=== PATIENT | female | born 1995 ===

== ENCOUNTER 2021-05-09 12:19 | Emergency (ER) | payer OTHER, SELFPAY ==
[2021-05-09 14:25] VITALS: RESP 16; TEMP 36.8; BMI 31.3
[2021-05-09 14:48] LABS: COVID-19 Test Positive (Negative)
[2021-05-09 14:59] LABS: Appearance Urine HAZY; Color Urine YELLOW; Glucose Urine UA NEG (NEG); Leukocyte Esterase Urine NEG (NEG); Nitrite Urine NEG (NEG); Specific Gravity - Urine 1.015 (1.005-1.025); Urine Blood NEG (NEG); Urine Ketones NEG (NEG); Urine Protein NEG (NEG-TRACE)
[2021-05-09 22:16] VITALS: BP 139/73; PULSE 116; RESP 18; TEMP 37.7; O2SAT 100
--- NOTE | 2021-05-09 22:44 | ED.FEVER ---
HPI - Fever General Chief Complaint: Fever Stated Complaint: Fever Time Seen by Provider: 05/09/21 22:06 Source: patient Mode of arrival: ambulatory Limitations: no limitations History of Present Illness HPI Narrative: 26-year-old female who presents emergency department for evaluation of fever, sore throat, headache, body aches, fatigue. The patient has been exposed to multiple family members who are COVID-19 positive. Patient states that her symptoms started today. The patient did receive the Moderna 2 shot vaccine for COVID-19 with her 2nd vaccination being on 02/03/2021. She denied chest pain, shortness of breath, dyspnea on exertion, diarrhea, loss of sense of taste or smell. Related Data Allergies Allergy/AdvReac Type Severity Reaction Status Date / Time No Known Allergies Allergy Verified 05/09/21 14:30 Review of Systems Review of Systems: Yes all other systems are reviewed and are negative [facility] Past Medical History [facility] Narrative: Past medical history: Anemia. Past surgical history: None. Social history: She denies tobacco, alcohol and drug use. Medical History (Updated 05/09/21 @ 22:51 by Juan Manuel Snyder MD) Anemia Social History Social History Advance Directives: No Advance Directives Information Provided: Yes Patient : No Physical Exam Vital Signs: Vital Signs: Last Vital Signs Temp 99.8 F 05/09/21 22:16 Pulse 116 H 05/09/21 22:16 Resp 18 05/09/21 22:16 BP 139/73 05/09/21 22:16 Pulse Ox 100 05/09/21 22:16 BMI result Body Mass Index 31.3 Const: General: cooperative and no acute distress Orientation/consciousness: oriented to person and oriented to place Limitations: no limitations HENMT: Head: Yes normal to inspection, Yes normocephalic and Yes atraumatic Ears: external ears normal General nose exam: Normal external nose present Face and sinus: Yes normal facial exam Mouth: Normal oral and palatal mucosa present Throat: Yes posterior oropharynx normal Eyes: General: appearance normal, both eyes and all related structures Pupils: Equal, round and reactive pupils present Neck: Neck: Yes normal visual inspection, Yes no lymphadenopathy, Yes trachea midline and Yes supple Chest: Chest palpation & inspection: normal inspection of the chest and normal palpation of entire chest wall Resp: Effort & Inspection: normal respiratory effort and able to speak in complete sentences Auscultation: clear to auscultation bilaterally Cardio: Rate: regular rate Rhythm: regular rhythm Heart sounds: S1 normal heart sound present, S2 normal heart sound present and no murmurs GI: Inspection: Yes normal to inspection Palpation (GI): Soft to palpation, nontender and no guarding Auscultation: normal bowel sounds : General: Yes no CVA tenderness Back/Spine/Pelvis: Back: no CVA tenderness Skin: General skin exam: no rashes or lesions noted Neuro: General: oriented to person and oriented to place Cranial nerves: Yes CN's II-XII intact bilaterally and Yes Equal, round and reactive pupils present Cognition (Neuro): normal cognition Motor exam (neuro): 5/5 motor strength present throughout Extrem: General: Yes normal to inspection Psych: Appearance: grossly normal Speech and movement: Normal speech and movement present Affect: normal affect Attitude: cooperative Thought process: Normal thought process present Thought content: Normal thought content present Course Course Course Narrative: 26-year-old female who presents emergency department for evaluation of fever, sore throat, cough, headache body aches and fatigue. She has had symptoms for 1 day. She has been exposed to multiple family members who are COVID positive. She had her 2 shot Moderna vaccine with the 2nd shot being given on 02/03/2021. Vital signs were normal with an O2 saturation of 100% on room air. Physical examination was unremarkable. Patient's urinalysis was negative. COVID-19 test was positive. I did discuss the treatment of COVID-19 infection with the patient. She was advised to take Tylenol and ibuprofen for her pain. She is advised to increase her fluid intake and rest. The patient does qualify for monoclonal antibody therapy based on her BMI. The patient will be referred to the [facility] clinic. She was given printed and verbal instructions and discharged home. MDM - Fever Lab Data Labs: Lab Results 05/09/21 05/09/21 Range/Units 14:35 14:46 Urine Color YELLOW Urine Appearance HAZY Urine pH 7.0 (5.0-8.0) Ur Specific [place] 1.015 (1.005-1.025) Urine Protein NEG (NEG-TRACE) MG/DL Urine Glucose (UA) NEG (NEG) MG/DL Urine Ketones NEG (NEG) MG/DL Urine Blood NEG (NEG) Urine Nitrite NEG (NEG) Ur Leukocyte Esterase NEG (NEG) COVID-19 (KERRY) Positive A (Negative) COVID-19 Clin Com See Note Discharge Plan Discharge Clinical Impression: COVID-19 virus infection Patient Disposition: Home, Self-Care Instructions: COVID-19 (Coronavirus Disease 2019) (ED) Additional Instructions: Your urine test was normal. Your COVID-19 test was positive. Your symptoms are consistent with a COVID-19 infection. Based on your lung exam and on your vital signs you do not have COVID pneumonia at this time. Take ibuprofen 200 mg pills, 3 pills every 6 hours as needed for pain or fever Take Tylenol (acetaminophen) 500 mg pills, 2 pills every 6 hours as needed for pain or fever You may benefit from COVID-19 monoclonal antibody treatment, therefore I am referring you to the [facility] in [place] The form was emailed to the clinic. They should call you to set up an appointment. Please call the number on the bottom of the form tomorrow to arrange for monoclonal antibody treatment. You need to stay home and isolate for 14 days. Please return to the emergency department if your symptoms get worse or if you develop any symptoms that are concerning to you.
== END 2021-05-09 23:04 | disposition home or self-care (01) ==
PROVIDERS: Emergency Provider Emergency Medicine Emergency Medical Services
DX: U07.1 COVID-19 (principal)
CPT/HCPCS: 36415; 81003; 87635; 99283; 99284

== ENCOUNTER → 2021-11-22 10:34 | Outpatient (BNVA) | payer OTHER, SELFPAY | PROVIDERS: Visit Provider Nurse Practitioner Family | DX: G43.009 Migraine without aura, not intractable, without status migrainosus (principal); F07.81 Postconcussional syndrome; R20.2 Paresthesia of skin; M54.2 Cervicalgia; R42 Dizziness and giddiness | CPT/HCPCS: 99202 ==

== ENCOUNTER → 2022-01-29 14:12 | Outpatient (BNVA) | payer OTHER, SELFPAY | PROVIDERS: Visit Provider Nurse Practitioner Family | DX: F07.81 Postconcussional syndrome (principal); G43.009 Migraine without aura, not intractable, without status migrainosus; R20.2 Paresthesia of skin; M54.2 Cervicalgia; R42 Dizziness and giddiness | CPT/HCPCS: 99212 ==

== ENCOUNTER 2023-06-13 22:47 | Emergency (ER) | payer MEDICAID, SELFPAY ==
--- NOTE | 2023-06-13 | ECG_ITS ---
Test Reason : SOB Blood Pressure : / mmHG Vent. Rate : 071 BPM Atrial Rate : 071 BPM P-R Int : 166 ms QRS Dur : 082 ms QT Int : 348 ms P-R-T Axes : 044 003 000 degrees QTc Int : 378 ms Normal sinus rhythm with sinus arrhythmia Minimal voltage criteria for LVH, may be normal variant ( R in aVL ) Nonspecific T wave abnormality Abnormal ECG No previous ECGs available Referred By: Generic ED Physician Electronically Signed By:BOOKER LEPE MD
--- NOTE | ~2023-06-13 | US_ITS ---
EXAMINATION: US VENOUS WITH DOPPLER UPPER EXTREMITY, RIGHT CLINICAL INFORMATION: Swelling, pain, history of DVT COMPARISON: None available. TECHNIQUE: Ultrasound of the upper extremity is performed using compression sonography and color and pulse Doppler flow with assessment of augmentation of flow. There is also imaging and Doppler assessment of the jugular and subclavian veins. Spectral analysis with color-flow imaging is performed. FINDINGS: Respiratory variation, normal compression, and augmented flow are noted throughout the upper extremity including the axillary, brachial, basilic, and cephalic veins. There is normal flow in the internal jugular and subclavian veins. There is no visible deep or superficial thrombophlebitis. If the patient's symptoms progress, a followup ultrasound in 5 -7 days might be of value to exclude proximal propagation from a nonvisualized distal arm vein. US/US venous duplex UE RT IMPRESSION: No DVT demonstrated in the right upper extremity.
--- NOTE | ~2023-06-13 | CT_ITS ---
EXAMINATION: CT SOFT TISSUE NECK WITH CONTRAST CLINICAL INFORMATION: Right neck swelling COMPARISON: None. TECHNIQUE: Following the administration of 65 mL of Omnipaque 350 intravenous contrast, helical imaging was performed in the axial plane with generation of coronal and sagittal reformatted images. This CT examination was performed using dose optimization techniques as appropriate, variously including the following: *Automated exposure control. *Adjustment of mA and/or kV according to patient size (this includes techniques or standardized protocols for targeted exams where dose is matched to indication/reason for exam; i.e. extremities or head). *Use of iterative reconstruction technique. DLP: 307 mGy-cm. FINDINGS: Nasopharynx/skull base: The fat planes of the skull base and soft tissues of the nasopharynx are unremarkable. The paranasal sinuses and mastoid air cells are well aerated. The temporomandibular joints are normal. Suprahyoid neck: The oropharynx, oral cavity, and bilateral salivary gland tissues are unremarkable. Infrahyoid neck: The hypopharynx and larynx are unremarkable. No aerodigestive tract mass. Thyroid: The thyroid gland is normal. Lymph nodes: There is no cervical chain lymphadenopathy. Lung apices: The partially visualized lung apices are clear. Vascular structures: No hemodynamically significant stenosis, dissection, or occlusion. Osseous structures: The osseous structures are intact without suspicious focal lesion. Other: The imaged portions of the brain parenchyma are unremarkable. CT/CT soft tissue neck w IV con IMPRESSION: No acute soft tissue abnormality in the neck is identified.
[2023-06-13 22:53] VITALS: BP 127/59; PULSE 75; RESP 20; TEMP 36.1; O2SAT 100; BMI 30.3
--- NOTE | 2023-06-13 23:24 | ED_ITS ---
HPI - General Adult General Chief complaint: Extremity Problem Stated complaint: hx arm blot clot/rt arm pain Time Seen by Provider: 06/13/23 23:23 Source: patient Mode of arrival: ambulatory Limitations: no limitations History of Present Illness HPI narrative: 28-year-old female history of right upper extremity DVT was on Lovenox for 3 months that was stopped because of her for the past 2 months presented today for evaluation of right arm pain and swelling that radiate to the right side of her right neck, patient also noticed palpable bumps on her right side her neck that has not tender. Patient declined any recent sickness, no sore throat, no fever, no chills. No SOB, no CP, no lower extremities DVT. Patient with known history of anemia that require blood and iron transfusion as per patient report but declined any vaginal or rectal bleeding, no SOB or CP. Related Data Home Medications Medication Instructions Recorded Confirmed cholecalciferol (vitamin D3) 25 25 mcg PO DAILY 11/22/21 01/29/22 mcg (1,000 unit) capsule naproxen sodium 550 mg tablet 550 mg PO BID 01/29/22 01/29/22 Previous Rx's Medication Instructions Recorded magnesium oxide 400 mg (241.3 mg 400 mg PO BEDTIME 30 days #30 tabs 11/22/21 magnesium) tablet riboflavin (vitamin B2) 400 mg 400 mg PO DAILY 30 days #30 tabs 11/22/21 tablet sumatriptan succinate 100 mg tablet 50 - 100 mg (0.5 - 1 x 100 mg) PO 11/22/21 Q2H PRN migraine headache 30 days #12 tabs topiramate 25 mg tablet 50 mg (2 x 25 mg) PO BEDTIME 30 12/21/21 days #60 tabs rizatriptan 10 mg tablet 5 - 10 mg (0.5 - 1 x 10 mg) PO Q2H 01/29/22 PRN migraine headache 21 days #12 tabs Allergies Allergy/AdvReac Type Severity Reaction Status Date / Time No Known Allergies Allergy Verified 01/29/22 14:15 Review of Systems 2 Review of Systems: All other systems are reviewed and are negative Constitutional: Reports as per HPI and Reports no additional constitutional complaints Eyes: Reports as per HPI and Reports no additional eye complaints Reports system reviewed and no additional complaints, except as documented Cardiovascular: Reports as per HPI and Reports no additional cardiovascular complaints Respiratory: Reports as per HPI and Reports no additional respiratory complaints Gastrointestinal: Reports as per HPI and Reports no additional gastrointestinal complaints Genitourinary: Reports no additional female genitourinary complaints Musculoskeletal: Reports no additional musculoskeletal complaints Skin/Breast: Reports system reviewed and no additional complaints, except as docu Psychiatric: Reports no additional psychiatric complaints Endocrine: Reports no additional endocrine complaints Hematologic/Lymphatic: Reports no additional hematologic/lymphatic complaints Allergic/Immunologic: Reports no additional allergic/immunologic complaints Reports system reviewed and no additional complaints, except as documented and Reports Abnormal speech present [facility] Past Medical History Medical History Anemia Surgical History H/O: Family History Family History Other No known health problems Social History Social History Advance Directives: No Advance Directives Information Provided: Yes Physical Exam ED Vital Signs: Vital Signs - 24 hr 06/13/23 22:53 06/13/23 23:43 06/14/23 02:15 Temperature 96.9 F 98.2 F 97.9 F Pulse Rate 75 74 59 Respiratory Rate 20 16 16 Blood Pressure 127/59 L 110/60 105/65 Pulse Oximetry 100 98 97 Oxygen Delivery Method Room Air Room Air Room Air BMI result Body Mass Index 30.3 Vital signs have been reviewed and appear to be correct. Blood pressure elevated. Heart rate normal. Respiratory rate normal. Temperature normal. Oxygen saturation normal. Appearance: Alert. Oriented X3. No acute distress. Head: Normal external exam. Normocephalic. Atraumatic. No Lackey signs noted. No raccoon eyes noted Eyes: PERRLA. EOMI. Conjunctiva and sclera normal. Eyelids normal. ENT: TM's Normal. Pharynx normal. Uvula midline. Moist mucous membranes. No trismus noted. No drooling noted. No muffled voice noted. Neck: Normal inspection. Neck supple. FROM. No adenopathy. Thyroid Normal. No meningeal signs. No neck mass noted. CVS: Normal heart rate and rhythm. Heart sound normal. No murmurs noted. Pulses normal throughout. Respiratory: No respiratory distress. Painless inspiration. Breath sounds normal. No wheezes/rales/rhonchi noted. Chest nontender. No accessory muscle usage noted or decreased air movement noted. Abdomen: Soft and nontender. Bowel sounds normal in all 4 quadrants. No distention noted. No organomegaly noted. No visible injury noted. Back: No CVA tenderness. Full range of motion noted. Skin: Skin warm and dry. Normal skin color. Normal skin turgor. No rashes/lesions/lacerations noted. Extremities: No lower extremity edema. Extremities exhibit normal range of motion. Extremities nontender. Neuro: Oriented X 3. Cranial nerve exam: II-XII are grossly intact No motor deficit. No sensory deficit. Reflexes normal. Course Reevaluation(s) Reevaluation #1: History of DVT in the right upper extremity swelling and pain with history of blood clot not on AC presented with concern of right arm pain and swelling radiates to the right side with bumps on right side of neck. Patient had an ultrasound of her right upper extremity showed no DVT, CT of the soft tissue neck revealing no mass. Patient was reassured and will be discharged home. Noticed to be anemic no old lab value to compare patient declined any vaginal bleeding or rectal bleeding, no SOB or chest pain either. Time: 02:37 Medications Administered Discontinued Medications Generic Name Dose Route Start Last Admin Trade Name Freq PRN Reason Stop Dose Admin Sodium Chloride 1,000 mls @ 999 mls/hr 06/13/23 23:29 06/14/23 01:40 Ns IV 06/14/23 00:29 Infused .Q1H1M ONE Infusion Iohexol 60 ml 06/14/23 00:20 06/14/23 00:21 Iohexol 350 Mg/Ml 100 Ml Infus..Btl IV 06/14/23 00:21 60 ml ONCE ONE Administration Medical Decision Making Differential Diagnosis Differential Diagnoses: The differential diagnosis associated with the presentation includes (Right upper extremity DVT,) Admission/Observation Consideration of admission/observation: Escalation of care including admission/observation considered Lab Data MDM Lab Attestation statement: I reviewed the patient's lab results. 06/14/23 00:33 06/13/23 23:17 Labs: Lab Results 06/13/23 06/14/23 Range/Units 23:17 00:33 WBC 5.6 (4.8-10.8) X10*3/uL RBC 4.10 L (4.20-5.50) X10*6/uL Hgb 9.7 L (12.0-16.0) g/dl Hct 31.7 L (37.0-47.0) % MCV 77.3 L (80.0-98.0) fL MCH 23.7 L (27.0-33.0) pg MCHC 30.6 L (31.0-35.0) g/dl RDW 15.5 (11.0-16.0) % Plt Count 256 (160-400) X10*3/uL MPV 10.1 (9.4-12.3) fL Immature Gran % (Auto) 0.2 (0.0-0.4) % Neut % (Auto) 54.4 (45-73) % Lymph % (Auto) 36.0 (20-40) % Motley % (Auto) 6.3 (2-11) % Eos % (Auto) 2.7 (0-4) % Baso % (Auto) 0.4 (0-2) % Lymph # (Auto) 2.0 (1.2-4.9) X10*3/uL Motley # (Auto) 0.4 (0.1-1.2) X10*3/uL Eos # (Auto) 0.2 (0.0-0.4) X10*3/uL Baso # (Auto) 0.0 (0.0-0.2) X10*3/uL Abs Immat Gran (auto) 0.01 (0.00-0.03) X10*3/uL Absolute Neuts (auto) 3.1 (2.0-8.3) x10*3/uL Absolute Nucleated RBC 0.000 (0.0-0.012) X10*3/uL Nucleated RBC % (auto) 0.0 (0.0-0.2) /100WBC Sodium 141 (135-145) mmol/L Potassium 3.6 (3.3-5.1) mmol/L Chloride 110 H (96-108) mmol/L Carbon Dioxide 22 (22-29) mmol/L Anion Gap 13 (12-20) BUN 14 (9-16) mg/dL Creatinine 0.63 (0.5-1.4) mg/dL Estim Creat Clear Calc 106.7 Estimated GFR > 60 Random Glucose 90 (60-115) mg/dL Calcium 8.5 (8.4-10.2) mg/dL Independent Interpretation I performed an independent interpretation of an: Ultrasound (Right upper extremity:No DVT demonstrated in the right upper extremity. ) Radiology Impression Discussion of test interpretation with radiology: I have reviewed the radiologist's reading. Discharge Plan Discharge Clinical Impression: Arm pain, right Patient Disposition: Home, Self-Care Instructions: Arm Pain (ED) Prescriptions: No Action topiramate 25 mg tablet 50 mg PO BEDTIME 30 Days Qty: 60 1RF Rx Instructions: 1 tab for two weeks and if tolerate, increase to 2 tab q HS. cholecalciferol (vitamin D3) 25 mcg (1,000 unit) capsule 25 mcg PO DAILY sumatriptan succinate 100 mg tablet 50 - 100 mg PO Q2H PRN (Reason: migraine headache) 30 Days Qty: 12 6RF Rx Instructions: max 2 tabs per day or 4 tabs/week riboflavin (vitamin B2) 400 mg tablet 400 mg PO DAILY 30 Days Qty: 30 6RF magnesium oxide 400 mg (241.3 mg magnesium) tablet 400 mg PO BEDTIME 30 Days Qty: 30 6RF Rx Instructions: may hold for loose stools naproxen sodium 550 mg tablet 550 mg PO BID rizatriptan 10 mg tablet 5 - 10 mg PO Q2H PRN (Reason: migraine headache) 21 Days Qty: 12 3RF Rx Instructions: max 2 tabs per day or 4 tabs per week
[2023-06-13 23:37] LABS: Anion Gap 13 (12-20); Blood Urea Nitrogen 14 mg/dL (9-16); Calcium 8.5 mg/dL (8.4-10.2); Carbon Dioxide 22 mmol/L (22-29); Chloride 110 mmol/L (96-108); Creatinine Clr Calc Pharmacy 106.7; Estimated Glomerular Filt Rate > 60; Glucose Random 90 mg/dL (60-115); Potassium 3.6 mmol/L (3.3-5.1); Sodium 141 mmol/L (135-145)
--- OUTSIDE RECORDS SUMMARY | 2023-06-13 23:41 | XMS_ITS | Continuity of Care Document ---
Author Name Unknown Organization [facility] Address [address] [place] [id number]- Care Team Providers Care Product Safety Expert Name Role Phone Benson SCHNEIDER, Zenaida Covarrubias Primary Care Physic alma Encounter [facility] Date(s): 12/31/22 - 01/30/23 [facility] [address] [address]- Allergies, Adverse Reactions, Alerts No Known Allergies Immunizations Given and Recorded Vaccine Date Status Refusal Reason tetanus/diphtheria/pertussis, acel(Tdap) 11/20/22 Given tetanus/diphtheria/pertussis, acel(Tdap) 02/22/17 Given tetanus/diphtheria/pertussis, acel(Tdap) 1 02/02/11 Given SARS-CoV-2 (COVID-19) mRNA-1273 vaccine 10/11/21 R ecorded SARS-CoV-2 (COVID-19) mRNA-1273 vaccine 02/08/21 R ecorded SARS-CoV-2 (COVID-19) mRNA-1273 vaccine 12/28/20 R ecorded influenza virus vaccine, inactivated 02/22/17 Give n influenza virus vaccine, inactivated 2 03/08/11 Gi alvaro influenza virus vaccine, inactivated 3 06/30/10 Gi alvaro Fluarix (oldterm) 4 02/11/12 Given Human Papillomavirus Vaccine 5 02/11/12 Given Human Papillomavirus Vaccine 6 07/06/11 Given Human Papillomavirus Vaccine 7 03/08/11 Given Menactra (oldterm) 8 03/08/11 Given 1Admin Note: VIS given 2Admin Note: vis 12/2010 3Admin Note: vis 12/20/09 4Admin Note: vis given 11/12/11 5Admin Note: VIS 07/04/2011 6Admin Note: vis 08/09/09 7Admin Note: vis 08/09/09 8Admin Note: vis 02/23/11 Medications sertraline 50 mg oral tablet 1 tablet = 50 mg, By Mouth, Daily, # 90 tablet, 0 Refills, Maintenance, 12/20/22 15:49:00 EDT, Tablet, Community, A [facility] Rx #[id number], Partial fill upon patient request if the prescription is for aschedule II opioid drug., 148, cm, 12/20/22 15:26:0... Start Date: 12/20/22 Status: Ordered Unisom 25 mg oral tablet 1 tablet = 25 mg, By Mouth, Daily at bedtime, PRN for sleep, # 32 tablet, 0 Refills, Acute 02/28/2315:57:00 EDT, 01/29/23 15:57:00 EDT, Tablet, Community, A [facility] Rx #[id number], Partial fill upon patient request if the prescription is for a schedule... Start Date: 01/29/23 Stop Date: 02/28/23 Status: Ordered valACYclovir 500 mg oral tablet 500 mg, 1, tablet, By Mouth, 2 times a day, for 5 week(s), start taking at 36 weeks gestation and continue through time of delivery drink plenty of fluids for your , 36w start date is on 01/21/23, # 70 tablet, Refills 0, Tot. Refills 0, Ac... Start Date: 01/21/23 Stop Date: 02/25/23 Status: Ordered Problem List Condition Confirmation Course Effective Dates Status H ealth Status Informant Anemia during Confirmed Active Anxiety Confirmed Active GBS bacteriuria Confirmed Active Depression Confirmed Active History of Confirmed Active HSV infection Confirmed Active Obese class I Confirmed Active Confirmed Active Request for sterilization Confirmed Active Superficial thrombophlebitis in Confirmed Active Declines (vaginal after ) trial Confirmed Active Social History Social History Type Response Smoking Status Never (less than 100 in lifetime) entered on: 07/13/22 Sex Female Patient Care team information Care Team Personnel Name: Benson SCHNEIDER, Zenaida Covarrubias Position: [facility] RAT POISONER MD Member Role: PCP Address: Address: [address] [phone]- Care Team Related Persons Name: CARMEN PARDO Address: home [address] [place] [id number] Name: MAK DARDEN Address: [address] [address]
--- OUTSIDE RECORDS SUMMARY | 2023-06-13 23:41 | XMS_ITS | Continuity of Care Document ---
Author Name Unknown Organization [facility] Address [address] [place] [id number]- Care Team Providers Care Looper Fixer Name Role Phone Benson SCHNEIDER, Zenaida Covarrubias Primary Care Physic alma Encounter [facility] Date(s): 11/15/22 - 12/15/[address] [address]- Allergies, Adverse Reactions, Alerts No Known Allergies [...] vis 08/09/09 8Admin Note: vis 02/23/11 Medications Venofer 20 mg/mL intravenous solution = 100 mg, IV Infusion, Every week, # 10 mL, 1 Refills, Maintenance, 11/21/22 16:00:00 EDT[facility] Partial fill upon patient request if the prescription is for a schedule II opioid drug., 148, cm, 11/20/22 14:54:00 EDT, Height, 72.6,... Start Date: 11/21/22 Status: Ordered Problem List Condition Confirmation Course Effective Dates Status H ealth Status Informant Anemia during Confirmed Active Anxiety Confirmed Active GBS bacteriuria Confirmed Active Constipation during Confirmed Active Depression Confirmed Active History of Confirmed Active HSV infection Confirmed Active Obese class I Confirmed Active Request for sterilization Confirmed Active Declines (vaginal after ) trial Confirmed Active Social History Social History Type Response Smoking Status Never (less than 100 in lifetime) entered on: 07/13/22 Sex Female Patient Care team information Care Team Personnel Name: Benson SCHNEIDER, Zenaida Covarrubias Position: [facility] SERVER ON CALL MD Member Role: PCP Address: [facility] [place] [phone]- Care Team Related Persons Name: CARMEN PARDO Address: home [address] [place] [id number] Name: MAK DARDEN Address: home [address] [place] [address]
--- OUTSIDE RECORDS SUMMARY | 2023-06-13 23:41 | XMS_ITS | Continuity of Care Document ---
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 Name Role Phone Not on Staff, PCP Primary Care Physician Unavail able Encounter [facility] Date(s): 09/14/19 - 09/21/19 [facility] [address] [place] [address]- [facility] Encounter Diagnosis Right wrist injury(Discharge Diagnosis) - 09/14/19 Attending Physician: Richy SCHNEIDER, Emeterio Bashir Allergies, Adverse Reactions, Alerts Substance Reaction Severity Status NKA Active Immunizations Given and Recorded Vaccine Date Status Refusal Reason influenza virus vaccine, inactivated 02/22/17 Give n influenza virus vaccine, inactivated 1 03/08/11 Gi alvaro influenza virus vaccine, inactivated 2 06/30/10 Gi alvaro tetanus/diphtheria/pertussis, acel(Tdap) 02/22/17 Given tetanus/diphtheria/pertussis, acel(Tdap) 3 02/02/11 Given Fluarix (oldterm) 4 02/11/12 Given Human Papillomavirus Vaccine 5 02/11/12 Given Human Papillomavirus Vaccine 6 07/06/11 Given Human Papillomavirus Vaccine 7 03/08/11 Given Menactra (oldterm) 8 03/08/11 Given 1Admin Note: vis 12/2010 2Admin Note: vis 12/20/09 3Admin Note: VIS given 4Admin Note: vis given 11/12/11 5Admin Note: VIS 07/04/2011 6Admin Note: vis 08/09/09 7Admin Note: vis 08/09/09 8Admin Note: vis 02/23/11 Medications acetaminophen 325 mg oral tablet 650 mg, 2, tablet, By Mouth, Every 4 hours, PRN, # 120 tablet, Refills 0, Tot. Refills 0, Maintenance, for pain, 12/02/18 5:02:21 EDT, Print Requisition Start Date: 12/02/18 Status: Ordered Apri 0.15 mg-0.03 mg oral tablet 1 tablet, By Mouth, Daily, # 28 tablet, 11 Refills, Maintenance, 10/15/17 13:41:21 EDT, Tablet, 1 tablet By Mouth Daily Start Date: 10/15/17 Status: Ordered Colace sodium 100 mg oral capsule 100 mg, 1, capsule, By Mouth, 2 times a day, PRN, # 60 capsule, Refills 1, Tot. Refills 1, Maintenance, for constipation, 02/22/17 12:44:13, Route to Pharmacy Electronically, [id number], [facility] #[id number] Start Date: 02/22/17 Status: Ordered docusate sodium 100 mg oral tablet 1 tablet = 100 mg, By Mouth, 2 times a day, PRN for constipation, # 28 tablet, 0 Refills, Maintenance, 04/20/17 11:19:30, Tablet Start Date: 04/20/17 Stop Date: 05/04/17 Status: Ordered ferrous gluconate 324 mg oral tablet 1 tablet = 324 mg, By Mouth, 2 times a day, # 180 tablet, 3 Refills, Maintenance, 10/19/16 21:15:55, Tablet Start Date: 10/19/16 Status: Ordered ferrous sulfate 325 mg oral tablet 1 tablet = 325 mg, By Mouth, 3 times a day, # 90 tablet, 0 Refills, Maintenance, 04/20/17 11:19:28,Tablet Start Date: 04/20/17 Status: Ordered ibuprofen 400 mg oral tablet 400 mg, 1, tablet, By Mouth, Every 6 hours, PRN, # 30 tablet, Refills 0, Tot. Refills 0, Maintenance, for pain, 12/02/18 5:01:04 EDT, Print Requisition Start Date: 12/02/18 Status: Ordered ibuprofen 600 mg oral tablet 600 mg, 1, tablet, By Mouth, Every 6 hours, # 40 tablet, Refills 1, Tot. Refills 1, Maintenance, 04/20/17 11:19:27, Print Requisition Start Date: 04/20/17 Stop Date: 05/10/17 Status: Ordered MetroGel-Vaginal 0.75% vaginal gel with applicator 1 application, Vaginally, Daily at bedtime, # 70 Gm, 0 Refills, Maintenance, 12/04/17 17:46:02 EDT,Gel, 1 application Vaginally Daily at bedtime,x5 days Start Date: 12/04/17 Stop Date: 12/09/17 Status: Ordered Multivitamin, By Mouth, 0 Refills, Maintenance, 12/05/16 17:03:33 Start Date: 12/05/16 Status: Ordered NuvaRing 0.015 mg-0.120 mg vaginal ring See Instructions, insert 1 ring Vaginally x3 weeks, then remove and insert new ring; repeat, # 3 each, 4 Refills, Maintenance, 12/04/17 17:52:54 EDT, insert 1 ring Vaginally x3 weeks, then remove andinsert new ring; repeat Start Date: 12/04/17 Status: Ordered orphenadrine 100 mg oral tablet, extended release 100 mg, 1, tablet, By Mouth, 2 times a day, # 14 tablet, Refills 0, Tot. Refills 0, Maintenance, 08/31/18 20:17:56 EDT, Print Requisition Start Date: 08/31/18 Stop Date: 09/07/18 Status: Ordered oxyCODONE 5 mg oral tablet 5 mg, 1, tablet, By Mouth, Every 6 hours, PRN, # 24 tablet, Refills 0, Tot. Refills 0, Maintenance,for pain, 04/20/17 11:19:29, Print Requisition Start Date: 04/20/17 Stop Date: 04/27/17 Status: Ordered oxyCODONE 5 mg oral tablet 5 mg, 1, tablet, By Mouth, Every 24 hours, PRN, # 5 tablet, Refills 0, Tot. Refills 0, Maintenance,for pain, 03/01/17 18:21:07, Print Requisition Start Date: 03/01/17 Status: Ordered ParaGard intrauteral device See Instructions, supervisor kennel Paragard and bring to your post- appointment for insertion, # 1 each, 0 Refills, Maintenance, 04/22/17 14:04:19, supervisor kennel Paragard and bring to your post- appointment for insertion Start Date: 04/22/17 Status: Ordered sulindac 200 mg oral tablet 1 tablet = 200 mg, By Mouth, 2 times a day, PRN Pain , Moderate, with food or milk, # 20 tablet, 0 Refills, Maintenance, 07/24/19 19:06:00 EDT, Tablet, [id number], 148, cm, 07/24/19 18:18:00 EDT, Height, 67.7, kg, 07/24/19 18:18:00 EDT, Dry We... Start Date: 07/24/19 Stop Date: 08/07/19 Status: Ordered Tylenol 325 mg oral tablet 325 mg, 1, tablet, By Mouth, Every 4 hours, PRN, # 50 tablet, Refills 0, Tot. Refills 0, Maintenance, Pain , Mild, 04/20/17 11:19:20, Print Requisition Start Date: 04/20/17 Stop Date: 04/30/17 Status: Ordered Problem List Condition Effective Dates Status Health Status Inform ant Anemia(Confirmed) Active Diagnosis Diagnosis Type Effective Dates Health Status Cl inical Service Informant Right wrist injury Discharge Diagnosis 09/14/19 Vital Signs Most recent to oldest [Reference Range]: 1 Height 148 cm (09/14/19 6:58 PM) Weight 69.5 kg (09/14/19 6:58 PM) Oxygen Saturation [94-100 %] 99 % (09/14/19 6:58 PM) Pulse Rate [55-90 bpm] 80 bpm (09/14/19 6:58 PM) Body Mass Index [18.5-24.99] 31.73 *>HHI* (09/14/19 6:58 PM) Blood Pressure [90-138/55-84 mm Hg] 120/ 41mm Hg (09/14/19 6:58 PM) Respiratory Rate [16-30 br/min] 18 br/mi n (09/14/19 6:58 PM) Temperature [96.8-100.4 DegF] 97.8 DegF (09/14/19 6:58 PM) Mode of Delivery (Oxygen) Room air (09/14/19 6:58 PM) Blood pressure sites Arm, right (09/14/19 6:58 PM) Temperature Route Oral (09/14/19 6:58 PM) Dry Weight 69.5 kg (09/14/19 6:58 PM) Weight Obtained Via Standing scale (09/14/19 6:58 PM) Dry Weight Obtained Via Standing scale (09/14/19 6:58 PM)
--- OUTSIDE RECORDS SUMMARY | 2023-06-13 23:42 | XMS_ITS | Continuity of Care Document ---
Author Name Unknown Organization [facility] ter Address [address] [place] [id number]- Care Team Providers Care Cart Driver Name Role Phone Benson SCHNEIDER, Zenaida Bashir Primary Care Physician Encounter [facility] [place] Date(s): 07/18/22 - 07/18/[address] [address] Discharge Disposition: A-D/C Home Attending Physician: Warren Betancourt MD Admitting Physician: Warren Betancourt MD Referring Physician: Warren Betancourt MD Allergies, Adverse Reactions, Alerts No Known Allergies [...] vis 08/09/09 8Admin Note: vis 02/23/11 Medications ondansetron 4 mg oral tablet, disintegrating 1 tablet = 4 mg, By Mouth, Every 8 hours, PRN as needed for nausea/vomiting, # 12 tablet, 0 Refills, Maintenance, 07/13/22 16:21:00 EST, DIS Tablet, [facility], [facility] Rx #[id number], Partial fill upon patient request if the prescription is for a sched... Start Date: 07/13/22 Status: Ordered Multivitamins with Folic Acid 1 mg oral tablet 1 tablet, By Mouth, Daily, # 90 tablet, 3 Refills, Maintenance, 06/15/22 16:06:00 EST, Tablet, [id number], Partial fill upon patient request if the prescription is for a schedule II opioid drug., 1 tablet By Mouth Daily, 148, cm, 01/17/22 23:1... Start Date: 06/15/22 Status: Ordered pyridoxine 25 mg oral tablet 1 tablet = 25 mg, By Mouth, 3 times a day, PRN Nausea & Vomiting, # 100 tablet, 8 Refills, Acute 07/30/22 14:36:00 EDT, 07/02/22 14:35:00 EST, [id number], Partial fill upon patient request if the prescription is for a schedule II opioid drug.,... Start Date: 07/02/22 Stop Date: 07/30/22 Status: Ordered Topamax 25 mg oral tablet 1 tablet = 25 mg, By Mouth, 2 times a day, 0 Refills, Maintenance, 01/17/22 20:57:00 EDT, Partial fill upon patient request if the prescription is for a schedule II opioid drug. Start Date: 01/17/22 Status: Ordered Unisom 25 mg oral tablet 1 tablet = 25 mg, By Mouth, Daily at bedtime, PRN for sleep, # 32 tablet, 0 Refills, Acute 07/30/2313:37:00 EDT, 07/02/22 14:35:00 EST, Tablet, [id number], Partial fill upon patient request if the prescription is for a schedule II opioid drug... Start Date: 07/02/22 Stop Date: 07/30/22 Status: Ordered Problem List Condition Confirmation Course Effective Dates Status H ealth Status Informant Anemia Confirmed Active Anxiety Confirmed Active Depression Confirmed Active Dysfunctional voiding of urine Confirmed Active HSV infection Confirmed Active Mixed incontinence Confirmed Active Obese class I Confirmed Active Pelvic pain in female Confirmed Active Levator spasm Confirmed Active Vital Signs Most recent to oldest [Reference Range]: 1 Weight 69.0 kg (07/18/22 10:34 AM) Oxygen Saturation [94-100 %] 100 % (07/18/22 10:34 AM) Pulse Rate [55-90 bpm] 71 bpm (07/18/22 10:34 AM) Blood Pressure [90-138/55-84 mm Hg] 106/ 51mm Hg (07/18/22 10:34 AM) Respiratory Rate [16-30 br/min] 18 br/mi n (07/18/22 10:34 AM) Temperature [96.8-100.4 DegF] 98.6 DegF (07/18/22 10:34 AM) Mode of Delivery (Oxygen) Room air (07/18/22 10:34 AM) Blood pressure sites Arm, right (07/18/22 10:34 AM) Temperature Route Oral (07/18/22 10:34 AM) Weight Obtained Via Standing scale (07/18/22 10:34 AM) Social History Social History Type Response Smoking Status Never (less than 100 in lifetime) entered on: 07/13/22 Sex Female History and physical note * Yareli Soriano DO: PERFORM Event Display: History and Physical Hospital Authored Date: Patient: ??ASHERCAYDEN ? Age:??27 Years?Sex:??Female?:??1995?? LMP/EGA/DUNIA Gestational Age (EGA) and DUNIA? * Note: EGA calculated as of 07/18/2022 ?? DUNIA:??02/09/2023?EGA*:??10 weeks 4 days ? History?(2,0,1,2)?Method:??Last Menstrual Period??(05/05/2022) History of Present Illness Pt is a 27 yo @ 10w4 by LMP??presenting to [facility] with spotting. Spotting started last night,bright red with associated pelvic cramping. Denies recent intercourse. Denies abnormal vaginal discharge, itching, burning or pain. She had an ultrasound at an outside facility 2 weeks ago and statesshe had an IUP. ?? Review of Systems Constitutional:??Denies fever or chills, weakness, fatigue HEENT:??Denies headache, dizziness Cardiovascular: Denies??chest pain or palpitations. Respiratory:??Denies shortness of breath, cough Gastrointestinal: Denies abdominal pain, N/V, C/D OUTPATIENT CASE MANAGER: Per HPI Ext: Denies LE swelling or calf pain Physical Exam Vitals & Measurements T:??98.6?F ?? KY:??71?? RR:??18?? BP:??106/51?? SpO2:??100%?? WT:??69.0??kg?? General: pleasant, alert, cooperative, NAD HEENT: Normocephalic/atraumatic Respiratory: Unlabored breathing Abdominal: Soft, non-tender. no masses. No rebound or guarding. [employer]ancials: Speculum: Normal appearing perineum, vulva, urethral meatus, vaginal and cervical mucosa, no lesions appreciated. 3 scopettes of dark red blood cleared from the vaginal vault. Cervix visually closed.No active bright red bleeding. Bimanual: Cervix closed. No CMT.??No adnexal fullness. or tenderness. Extremities: Symmetrical muscle bulk, no visible erythema or edema.?? Psych: Mood and affect stable, appearance appropriate, good eye contact, talkative ?? Bedside ultrasound: Live intrauterine , FHR 165 OB Assessment Baby A Baseline:165 Assessment/Plan Assessment:??Pt is a 27 yo @ 10w4 by LMP presenting to [facility] with spotting. Bedside ultrasound confirmed liver intrauterine . Cervix closed and no active bleeding. ?? Reviewed that bleeding in is never normal but not uncommon. Discussed with patient many causes for vaginal bleeding in early that may or may not be related to . We discussed that the differential diagnosis of vaginal bleeding in the 1st trimester includes miscarriage, implantation bleeding, bleeding from cervical friability. ??Exam today reassuring for IUP however there is a risk that today's bleeding may continue and leadto a miscarriage. Discussed with patient there are no tests or interventions that could forsee or prevent a miscarriage. Also discussed that patient can resume normal activity, no need for bed rest. ?? Given that the patient is hemodynamically stable and not having any active bleeding, outpatient expectant management is most appropriate. Patient discharged with return precautions of heavy bleeding,infection and abdominal pain. ?? Pt seen and discussed with attending, Dr. Mcgraw ?? Threatened (O20.0):??- Rh+; RhoGam not indicated - Discussed return precautions - Tylenol, warm baths/showers PRN for pain/cramping - Pending apt for [facility] at [facility] - Discharge home with bleeding and return precautions ?? OB History History?(2,0,1,2)? # 1 ?Baby 1 ?Outcome Date:??01/29/2011?Outcome or Result:??, low transverse ?Gest Age:??41 weeks 2 days ? Outcome:??Live ? Sex:??Male?Wt:?2410 g ? Complications:??Meconium; severe variable and late decelerations ?Anesthesia Type:??Epidural ? Labor:??No ?Javier Labor:??12 hr ?Name of Father/Guardian of [place]:?Hospital:??[facility] ?? # 2 ?Baby 1 ?Outcome Date:??2014 ?Outcome or Result:??Therapeutic , surgical ?Gest Age:??-- ? Outcome:? Sex:??-- ?? # 3 ?Baby 1 ?Outcome Date:??04/17/2017?Outcome or Result:?Gest Age:??39 weeks 3 days ? Outcome:??Live ? Sex:??Male?Wt:?3724 g Labs Labs Labs & Tests Chlamydia Trachomatis Amplified Probe: NEGATIVE (07/04/22) Urine Culture: Urine Culture (07/04/22) Problem List Active Active Problem List : (Freetext) Anemia: (Medical) Anxiety: (Medical) Depression: (Medical) Dysfunctional voiding of urine: (Medical) HSV infection: (Medical) Levator spasm: (Medical) Mixed incontinence: (Medical) Obese class I: (Medical) Pelvic pain in female: (Medical) : (Obstetric) (05/05/22) Procedure/Surgical History primary section: 01/29/11 Home Medications Doxylamine: 25 mg = 1 tablet, By Mouth, Daily at bedtime, PRN (for sleep) Multivitamin, : 1 tablet, By Mouth, Daily Ondansetron: 4 mg = 1 tablet, By Mouth, Every 8 hours, PRN (as needed for nausea/vomiting) Pyridoxine: 25 mg = 1 tablet, By Mouth, 3 times a day, PRN (Nausea & Vomiting) Topiramate: 25 mg = 1 tablet, By Mouth, 2 times a day Allergies NKA Social History Alcohol Use: Never., 07/13/2022 Use: Never., 04/11/2020 Electronic Cigarette/Vaping Electronic Cigarette Use: Never., 07/13/2022 Electronic Cigarette Use: Never., 04/11/2020 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 Lives with: Children. DCF involvement: None., 07/13/2022 Living situation: Home/Independent. Lives with: Children., 04/11/2020 Nutrition/Health Diet: Regular., 07/13/2022 Diet: Regular., 04/11/2020 Sexual Sexually involved in last 6 months: Yes. Gender identity: Identifies as female. Self described orientation: Straight or heterosexual. Preferred pronoun: She/her., 07/13/2022 Sexually involved in last 6 months: Yes., 04/11/2020 Substance Abuse Use: Never., 07/13/2022 Use: Never., 04/11/2020 Tobacco Use: Never (less than 100 in lifetime)., 07/13/2022 Use: Never (less than 100 in lifetime)., 04/11/2020 Family History Mat. Grandfather: Cancer of colon Pat. Grandmother: Diabetes mellitus Plan No Data Found * Mariluz SCHNEIDER, Cecilia Kelly: PERFORM Event Display: History and Physical Hospital Authored Date: ?Attending Attestation:??I have seen and evaluated this patient. ??I have discussed the caseand its management with and agree with the findings and plan as documented in the note below. Note * Felisa De Paz V: PERFORM Event Display: Discharge/Transfer Note Hospital Authored Date: Nursing Discharge Note Entered On: 07/18/2022 12:21 EST Performed On: 07/18/2022 12:20 EST by Feilsa De Paz V Nursing Discharge Note 2 Discharge Time : 07/18/2022 12:20 EST Discharge Level of Care at Discharge : Home/Assisted/Foster Care Patient Left Unit Via : Ambulatory Patient Accompanied Off Unit with : Other: self DC Instructions Provided & Signed by Pt : Yes Patient Understands D/C Instructions : Yes Patient Instructions Discharge Signed : Yes Did Pt have Specialty Bed or Wound Vac : No Felisa De Paz V - 07/18/2022 12:20 EST * Felisa De Paz V: PERFORM Event Display: Patient Education/Instruction Authored Date: Inpatient Adult Discharge Instructions [address] [address] Name: CAYDEN STERLING : 1995 Visit: 07/18/2022 10:02:00 Current Date: 07/18/2022 11:51 Account: [id number] Inpatient Adult Discharge Instructions We would like to thank you for allowing us to assist you with your healthcare needs. The following includes patient education materials and information regarding your injury/illness. Our entire staffstrives to provide an excellent experience for our patients and their families. PLEASE ENSURE YOU FOLLOW-UP PER THE INSTRUCTIONS BELOW! ?? YOUR OPINION IS IMPORTANT TO US! Please complete the survey you may receive by mail or email. Your feedback will be used to make improvements to the healthcare experiences of our patients and their families. Surveys are administered by [employer]. ?? If further treatment with your primary care physician or another doctor is recommended, it is important for you to keep the appointment. Call your primary care physician or return to the Emergency Department immediately if your condition worsens, fails to improve, or new symptoms develop. If you need to find a doctor, you can call [facility] for a referral at [phone] or toll free at [phone]) or log in to [email or web address].. ?? You can view and manage your care through the patient portal or by using a health care jeff of your choosing. [employer] is a website that allows you to securely view your medical information including your hospital discharge summary, office visit summaries, medications and follow-up visits. You can also request appointments, renew medications, and request access to your medical information using a health care jeff of your choosing, or just ask a question. You can enroll at [email or web address] or register during your next office visit. You have been discharged from [facility], Patient Care Unit: [facility]. If you have any questions regarding these instructions after you leave, please call us and we will be happy to assist you. [facility] Your Care Team Attending Physician Warren Betancourt MD Tests Performed Below is a partial list of the tests performed during your hospitalization. You may have had other tests and procedures not included in this list. Please discuss all test results with your provider. Complete Urinalysis?-- Results Pending -- ? You will be contacted within 72 hours with your results. Primary Care Provider Benson SCHNEIDER, Zenaida Bashir Advance Directive Health Care Proxy on File No Discharge Vitals Temperature: 98.6 DegF Weight: 69 kg Pulse Rate: 71 bpm ?? Respiratory Rate: 18 br/min ?? Systolic Blood Pressure: 106 mm Hg ?? Diastolic Blood Pressure:??51 mm Hg??Low ?? Oxygen Saturation: 100 % ?? Studies Pending All tests and labs ordered during this hospital stay have been completed unless listed below. Please discuss all pending results with your provider listed above in these instructions. ?? Complete Urinalysis What to do next Instructions From Your Doctor Discharge Orders You Need to Schedule the Following Appointments Follow Up with??[facility] When?? Why: Please follow up t your next scheduled appointment, call with concerns Where: [address] [place] [id number]- Discharge Medications CAYDEN STERLING :1995 Visit Date:07/18/2022 Medications: Please continue your medications until treatment is completed or stopped by your provider. Medications not listed below should be discontinued. Discuss any questions related to medications with your provider. What How Much When Instructions Next Dose Unchanged Doxylamine (Unisom 25 mg oral tablet) 1 tab(s) Oral Daily at Bedtime as needed for for sleep Unchanged Multivitamin, ( Multivitamins with Folic Acid 1 mg oral tablet) 1 tab(s) Oral Daily Unchanged Ondansetron (ondansetron 4 mg oral tablet, disintegrating) 1 tab(s) Oral Every 8 hours as needed for as needed for nausea/vomiting Unchanged Pyridoxine (pyridoxine 25 mg oral tablet) 1 tab(s) Oral 3 times a day as needed for Nausea & Vomiting Unchanged Topiramate (Topamax 25 mg oral tablet) 1 tab(s) Oral Twice a day Test Results Below is a partial list of the most recent Laboratory test results done prior to this discharge. You may have had other tests and procedures not included in this list. Please discuss all test resultswith your provider. Allergies (NKA means No Known Allergies) NKA Problems Active Problems??(11) Anemia?? Anxiety?? Depression?? Dysfunctional voiding of urine?? HSV infection?? Levator spasm?? Mixed incontinence?? Obese class I?? Pelvic pain in female? primary section 01/2011?? Education Materials Below is the list of Educational Leaflet Providered with your Discharge Instructions. Adapting to : First Trimester?? Vaginal Bleeding During ?? Valuables and Belongings I fully understand and agree that [facility] accepts no responsibility for all my personal property including clothing, toilet articles, radios, jewelry, dentures, hearing aids, rings, money, or any other property that is in my possession or is brought to me after admission. I understand certain valuables may be placed in a hospital safe for a short period of time. I understand that the hospital is not liable for loss or damage due to accident, fire, or other natural occurrence while said property is in the safe. I accept full responsibility for any personal property that I keep with me, and will not hold the hospital responsible in case of loss or disappearance. I acknowledge that i have been encouraged to send valuables and belongings home. ? Other Discharge Information ? Pulmonary Rehab Status?? Pulmonary Rehab Discharge Status?? Respiratory Rate: 18 br/min ? Common Emergency Awareness Tips IS IT A STROKE? Act FAST and Check for these signs: FACE Does the face look uneven? ARM Does one arm drift down? SPEECH Does their speech sound strange? TIME Call at any sign of stroke ?? Heart Attack Signs Chest discomfort: Most heart attacks involve discomfort in the center of the chest and lasts more than a few minutes, or goes away and comes back. It can feel like uncomfortable pressure, squeezing, fullness or pain. Discomfort in upper body: Symptoms can include pain or discomfort in one or both arms, back, neck, jaw or stomach. Shortness of breath: With or without discomfort. Other signs: Breaking out in a cold sweat, nausea, or lightheaded. Remember, MINUTES DO MATTER. If you experience any of these heart attack warning signs, call to get immediate medical attention! ?? Smoking can increase your chances of developing chronic health problems and can cause harmful effects to other family members in your house. If you smoke, you are strongly encouraged to quit. Please call [facility] at [phone] or [phone] ([phone]) or log in to [email or web address] for referrals to smoking cessation programs. ?? The National Suicide Prevention Hotline is available 03/12 if you or someone you know needs to find a reason to keep living. By calling 9-529-971-TouchBistro (7476) you'll be connected to a skilled, trained counselor at a crisis center in your area. INPATIENT DISCHARGE INSTRUCTIONS SIGNATURE SOLE CAYDEN STERLING Location:[facility] Registration Date and Time:07/18/2022 10:02 [facility] Primary Care Physician: Benson SCHNEIDER, Zenaida Bashir, I CAYDEN STERLING, have received the above patient education materials/instructions and have verbalized understanding. If ambulance or transport services are being used I further acknowledge being given a choice of service. ?? If you need to contact me, please call me at this number: . Patient/Crane Operator Cab Name: Patient/Crane Operator Cab Signature: Relationship to Patient: Witness Name/Signature: Date: * Felisa De Paz V: PERFORM Event Display: Patient Education Leaflets Authored Date: [id number] Adapting to : First Trimester ?? [address] Adapting to : First Trimester As your body adjusts during your first trimester of , you may have to change or limit yourdaily activities. You???ll need more rest. You may also need to use the energy you have more wisely. Your changing body Almost every part of your body is affected as you adapt to . The uterus and cervix will start to soften right away. You may not look very during the first 3 months. But you are likely to have some common signs of early : ??? Nausea ??? Fatigue ??? Frequent urination ??? Mood swings ??? Bloating of the belly ??? Constipation ??? Heartburn ??? Missed or light periods (first trimester bleeding) ??? Nipple or breast tenderness and breast swelling ?? It???s not too late to start good habits What matters most is protecting your baby from this moment on. If you smoke, drink alcohol, or use drugs, now is the time to stop. If you need help, talk with your healthcare provider: ??? Smoking increases the risk of stillbirth??or having a jby-iyuvy-ehmruh baby. If you smoke, quit now. ??? Alcohol and drugs have been linked with miscarriage, defects, intellectual disability, and low weight. Don't drink alcohol or take drugs. ?? Tips to relieve nausea During , nausea can happen at any time of the day, but it may be worse in the morning. To help prevent nausea: ??? Eat small, light meals at frequent intervals. ??? Drink fluids often. ??? Get up slowly. Eat a few unsalted crackers before you get out of bed. ??? Avoid smells that bother you. ??? Avoid spicy and fatty foods. ??? Eat an ice pop??in your favorite flavor. ??? Get plenty of rest. ??? Ask your healthcare provider about taking matthew or vitamin B6 for nausea and vomiting. ???Talk with your healthcare provider if you take vitamins that upset your stomach. ?? Work concerns The end of the first trimester is a good time to discuss working during with your employer. Follow your healthcare provider???s advice if your job needs you to stand for a long time, work with hazardous tools, or even sit at a desk all day. Your workspace, workload, or scheduled hours mayneed to be adjusted. Perhaps you can change body postures more often or take an extra break. ?? Advice for travel Talk to your healthcare provider first, but the second trimester may be the best time for any travel. You may be advised to avoid certain trips while you???re . Food and water can be concernsin developing countries. Travel by car is a good choice, as you can stop, get out, and stretch. Bring snacks and water along. Fasten the lap belt below your belly, low over your hips. Also be sure to wear the shoulder harness. ?? Intimacy Unless your healthcare provider tells you to, there's no reason to stop having sex while you???re . You or your partner may notice changes in desire. Desire may be less in the first trimesterdue to nausea and fatigue. In the second trimester, sex may be very enjoyable. The third trimester can be a challenge comfort-fraser. Try different positions and see what???s best for you both. ?? How daily issues affect your health Many things in your daily life impact your health. This can include transportation, money problems,housing, access to food, and childcare director. If you can???t get to medical appointments, you may not receive the care you need. When money is tight, it may be difficult to pay for medicines. And living far from a grocery store can make it hard to buy healthy food. If you have concerns in any of these or other areas, talk with your healthcare team. They may know of local resources to assist you. Or they may have a staff person who can help. ?? Last Reviewed Date: 2022 ?? 2574-6305 [employer]. All rights reserved. This information is not intended as a substitute for professional medical care. Always follow your healthcare professional's instructions. ?? * Felisa De Paz V: PERFORM Event Display: Patient Education Leaflets Authored Date: [id number] Vaginal Bleeding During ?? [address] Vaginal Bleeding During You may have vaginal bleeding during for many reasons. In some cases, it???s not something to worry about. But bleeding can be a symptom of something serious, especially if it occurs later in your . Here is a look at common causes of vaginal bleeding during . Always callyour healthcare provider if you have bleeding at any stage of . Bleeding in early About 2 to 3 out of 10 women will have vaginal bleeding in the first 20 weeks of . It doesnot always mean there is a serious problem. But call your healthcare provider if you have bleeding at any time during your . Common problems Common causes of vaginal bleeding during early include: ??? An infection. An infection in your pelvis or urinary tract can cause bleeding and some abnormaldischarge. ??? Cervical changes. hormones can make the cervix softer and more likely to bleed. A noncancer growth (polyp) may also form and may cause bleeding. ??? Having sex. You may have some bleeding after sex if your cervix is sore and sensitive. See your healthcare provider before having sex again. ??? Implantation bleeding. Implantation is when the fertilized egg attaches to the uterine lining, about 6 to 12 days after conception. You may have some light spotting or bleeding just before you would expect your next period. This is often mistaken for a light period. But the bleeding is often a gold beater color, and not heavy. Serious problems Serious problems that can cause vaginal bleeding in early include: Early loss (miscarriage) This is a loss that occurs before 20 weeks of . About 1 out of [address] Symptoms can include bleeding and cramping. But half of all women who have a miscarriagedon???t have any bleeding. Some tissue may still be in your uterus. It may pass naturallyfrom your vagina. Or you can choose to have it removed with medicine or surgery. Ectopic This is when the fertilized egg implants outside of the uterus. In most cases, it implants in one of the fallopian tubes. This is very serious and must be treated. If the fallopian tube bursts (ruptures), there may be internal bleeding. This may lead to fainting, shock, or even . Symptoms of ectopic include: ??? Vaginal bleeding (sometimes this is the only symptom) ??? Belly, pelvic, or shoulder pain Molar In rare cases, early bleeding is caused by a molar . This occurs when you have an abnormaltissue growth, not an embryo. Symptoms include: ??? Vaginal bleeding ??? No heartbeat ??? Ultrasound shows small round clusters in the uterus Subchorionic bleeding This is caused by a blood clot (subchorionic hematoma) that forms when blood collects between the uterine lining and the placenta. In most cases, this goes away on its own with no problems. But in some cases, it may cause the placenta to separate from the uterine wall. And it may be linked to a higher risk of labor and miscarriage. There is no treatment for these blood clots. But your healthcare provider may want you to have regular follow-up exams. You may also be advised not to do anystrenuous activity or heavy lifting. ?? Bleeding later in Vaginal bleeding in the second and third trimesters is often a sign of a more serious problem. If you have any bleeding later in your , call your healthcare provider right away. Common problems that can cause light bleeding later in are cervical growths or inflammation. Heavy bleeding later in is serious. It may mean there is a problem with the placenta. Placental abruption This is when the placenta separates from the uterine wall too soon. Symptoms include bleeding and back or belly pain. If this is not found early, it can cause serious problems. You may lose a lot of blood, and your baby may not get enough oxygen. Placenta previa This condition is most common in the third trimester. It occurs when the placenta is attached to the lower part of the uterus, instead of the upper part. This can partly or fully block the cervix. Bleeding may happen suddenly without any pain. In some cases placenta previa goes away on its own. Butif that doesn???t happen, you may need to have an early . Placenta accreta This is a condition where part or all of the placenta stays attached to the uterine wall. It can cause vaginal bleeding in the third trimester. And it can cause life-threatening blood loss during delivery. In some cases, placenta accreta is found during a routine ultrasound. But it may not be founduntil after delivery. If this condition is found before you deliver, you will likely have an early . In many cases the uterus is also removed (hysterectomy) right after delivery. This is done to prevent severe blood loss. labor Vaginal bleeding that occurs later in may also mean you are going into labor. Bleeding that occurs before 37 weeks may be a sign of labor. You may be given medicine to delay contractions. But if labor can???t be stopped, or there are other specific concerns, you may have to deliver your baby. Symptoms of labor also include: ??? Vaginal discharge (may be bloody, watery, or a mucus) ??? Feeling of pressure in pelvis or lower belly ??? Low back pain ??? Cramps(may occur with diarrhea) ??? Contractions ??? Your water breaks (ruptured membranes) ?? If you have abnormal bleeding during ??? Call your healthcare provider right away ??? Wear a pad or panty liner, so you can tell how much you are bleeding ??? Keep a record of your bleeding. Is it heavy or light? Is it a red or brown color? Is it smooth or are there any clots? Don???tuse a tampon or have sex when you are bleeding ?? When to call your healthcare provider Call your healthcare provider right away if you have vaginal bleeding at any stage of . ?? Last Reviewed Date: 2021 ?? [id number] [employer]. All rights reserved. This information is not intended as a substitute for professional medical care. Always follow your healthcare professional's instructions. ?? Patient Care team information Care Team Personnel Name: Zenaida Knowles MD Position: [facility] MANAGER CHANNEL MD Member Role: PCP Address: Address: [address] [place] [address]- Name: Felisa De Paz V Position: [facility] OB RN Member Role: Patient Care Provider Care Team Related Persons Name: CARMEN PARDO Address: home [address] [place] [id number] Name: MAK DARDEN Address: home [address] [place] [address]
--- OUTSIDE RECORDS SUMMARY | 2023-06-13 23:42 | XMS_ITS | Continuity of Care Document ---
Author Name Unknown Organization [facility] Address [address] [place] [id number]- Care Team Providers Care Snuff Packing Machine Operator Name Role Phone Zenaida Knowles MD Primary Care Physician Encounter [facility] Date(s): 07/02/22 - 08/04/22 [facility] [address] [address]- Attending Physician: Not on Staff, Attending MD Allergies, Adverse Reactions, Alerts No Known [...] vis 08/09/09 8Admin Note: vis 02/23/11 Medications Colace sodium 100 mg oral capsule 100 mg, 1, capsule, By Mouth, 2 times a day, PRN, # 60 capsule, Refills 2, Tot. Refills 2, Maintenance, for constipation, 07/27/22 11:41:00 EDT, Route to Pharmacy Electronically, [facility], [facility] #[id number], Partial fill upon patient request if t... Start Date: 07/27/22 Status: Ordered ferrous sulfate 325 mg oral tablet 1 tablet = 325 mg, By Mouth, Daily, # 60 tablet, 3 Refills, Maintenance, 07/26/22 21:24:00 EDT, Tablet, [facility], [facility] #[id number], Partial fill upon patient request if the prescription is for a schedule II opioid drug., 148, cm, 07/13/22 15:07:... Start Date: 07/26/22 Status: Ordered Metamucil 3.4 gm/5.2 gm oral powder for reconstitution = 1.7 Gm, By Mouth, 3 times a day, PRN as needed for constipation, dissolve in 8 oz of fluid; may use 1-3x/day as needed, # 425 Gm, 0 Refills, Maintenance, 07/27/22 11:41:00 EDT, REC Powder, [facility], [facility] [employer] #[id number], Partial fill upon patient... Start Date: 07/27/22 Status: Ordered metroNIDAZOLE 0.75% topical gel 1 applicator, Vaginally, Daily, # 70 Gm, 0 Refills, Maintenance, 07/31/22 20:20:00 EDT, [facility], [facility] [employer] [facility] Rx #[id number], Partial fill upon patient request if the prescription is for a schedule II opioid drug., 1 applicator Vaginally Daily,x5 days, 14... Start Date: 07/31/22 Stop Date: 08/05/22 Status: Ordered Multivitamins with Folic Acid 1 mg oral tablet 1 tablet, By Mouth, Daily, # 90 tablet, 3 Refills, Maintenance, 06/15/22 16:06:00 EST, Tablet, [facility]/pharmacy #[id number], Partial fill upon patient request if the prescription is for a schedule II opioid drug., 1 tablet By Mouth Daily, 148, cm, 01/17/22 23:1... Start Date: 06/15/22 Status: Ordered Reglan 5 mg oral tablet 1 tablet = 5 mg, By Mouth, Every 6 hours, PRN Nausea & Vomiting, # 28 tablet, 1 Refills, Maintenance, 07/30/22 10:53:00 EDT, Tablet, [facility][id number], Partial fill upon patient request if the prescription is for a schedule II opioid . Start Date: 07/30/22 Status: Ordered Problem List Condition Confirmation Course Effective Dates Status Health St atus Informant Anemia during Confirmed Active Anxiety Confirmed Active GBS bacteriuria Confirmed Active Constipation during Confirmed Active Depression Confirmed Active History of Confirmed Active HSV infection Confirmed Active Obese class I Confirmed Active Social History Social History Type Response Smoking Status Never (less than 100 in lifetime) entered on: 07/13/22 Sex Female Patient Care team information Care Team Personnel Name: Benson SCHNEIDER, Zenaida Bashir Position: [facility] WOUND CARE NURSE MD Member Role: PCP Address: Address: [address] [place], [place] [address] [place] [address]- Care Team Related Persons Name: CARMEN PARDO Address: home [address] [place] [id number] Name: MAK DARDEN Address: home [address] [place] [address]
--- OUTSIDE RECORDS SUMMARY | 2023-06-13 23:42 | XMS_ITS | Continuity of Care Document ---
Author Name Unknown Organization [facility] Address [address] [place] [address]- Care Team Providers Care Sailing Master Name Role Phone Not on Staff, PCP Primary Care Physician Unavail able Encounter [facility] Date(s): 12/27/22 - 12/27/[address] [address]- Discharge Disposition: A-D/C Home Attending Physician: Leticia Stack MD Admitting Physician: Leticia Stack MD Referring Physician: Not on Staff, Referring MD Allergies, Adverse Reactions, Alerts No Known [...] vis 08/09/09 8Admin Note: vis 02/23/11 Medications Lovenox 40 mg/0.4 mL injectable solution 0.4 mL = 40 mg, Subcutaneous Injection, Daily, for 14 days, # 5.6 mL, 0 Refills, Acute 01/10/23 19:50:00 EDT, 12/27/22 19:50:00 EDT, Solution, [facility]/pharmacy #[id number], Partial fill upon patient request ifthe prescription is for a schedule II opioid drug.,... Start Date: 12/27/22 Stop Date: 01/10/23 Status: Ordered metroNIDAZOLE 0.75% topical gel 1 application, Topically, Daily, use applicator to insert vaginally nightly, # 45 Gm, 0 Refills, Maintenance, 12/20/22 16:47:00 EDT, Gel, [facility] #[id number], Partial fill upon patient request if the prescription is for a schedule II opio... Start Date: 12/20/22 Stop Date: 12/27/22 Status: Ordered sertraline 25 mg oral tablet 1 tablet = 25 mg, By Mouth, Daily, # 3 tablet, 0 Refills, Maintenance, 12/20/22 15:49:00 EDT, Tablet, [facility] #[id number], Partial fill upon patient request if the prescription is for a schedule II opioid drug., 148, cm, 12/20/22 15:26:00... Start Date: 12/20/22 Stop Date: 12/23/22 Status: Ordered sertraline 50 mg oral tablet 1 tablet = 50 mg, By Mouth, Daily, # 90 tablet, 0 Refills, Maintenance, 12/20/22 15:49:00 EDT, Tablet, [facility] #[id number], Partial fill upon patient request if the prescription is for aschedule II opioid drug., 148, cm, 12/20/22 15:26:0... Start Date: 12/20/22 Status: Ordered Venofer 20 mg/mL intravenous solution = 100 mg, IV Infusion, Every week, # 10 mL, 1 Refills, Maintenance, 11/21/22 16:00:00 [facility] fill upon patient request if [...] Declines (vaginal after ) trial Confirmed Active Results Radiology Reports * Exam Date Time Procedure Performing Provider Status 12/27/22 6:29 PM US Doppler Ext Upper Venous Right Brittny Miranda; Chloe (Verified) Notes: (US Doppler Ext Upper Venous Right) Reason For Exam: Pain in limb;Other: RESULT: US Doppler Ext Upper Venous Right US Doppler Ext Upper Venous Right Reason: Pain in limb; Clinical Question(s): Thrombosis COMPARISON: None. IMAGING TECHNIQUE: Ultrasound examination of the upper extremity deep venous system was performed using grayscale, color, and spectral wave analysis including response to compression. Assessment includes the contralateral jugular and subclavian vein. FINDINGS: Internal jugular vein: Patent. No thrombosis. Subclavian vein: Patent. No thrombosis. Axillary vein: Patent. No thrombosis. Brachial vein: Patent. No thrombosis. Basilic vein: Patent. No thrombosis. Cephalic vein: 13 cm long occlusive thrombosis of the right cephalic vein measures up to 5 mm in transverse diameter. Contralateral internal jugular vein: Patent. No thrombosis. Contralateral subclavian vein: Patent. No thrombosis. IMPRESSION: Long segment superficial venous thrombosis of the cephalic vein. Cortext message sent to ordering practitioner. Confirmation and/or call back anticipated. The impression above was relayed to Leticia Stack MD by Dr. Haroon Martínez over the phone on 12/27/2022 at 6:51 PM. WSN: [id number] Ordering Physician: Leticia Stack Dictated By: Haroon Martínez MD Dictated Date/Time: 12/27/22 6:51 pm Reviewed By: Haroon Martínez MD Signed By: Haroon Martínez MD Signed Date/Time: 12/27/22 6:51 pm Transcribed By: JAIME Transcribed Date/Time: 12/27/22 6:50 pm Vital Signs Most recent to oldest [Reference Range]: 1 2 3 Height 149 cm (12/27/22 8:26 PM) 149 cm (12/27/22 6:35 PM) 149 cm (12/27/22 3:59 PM) Oxygen Saturation [94-100 %] 100 % (12/27/22 6:35 PM) 100 % (12/27/22 3:59 PM) 96 % (12/27/22 3:57 PM) Pulse Rate [55-90 bpm] 84 bpm (12/27/22 6:35 PM) 84 bpm (12/27/22 3:59 PM) 82 bpm (12/27/22 3:57 PM) Blood Pressure [90-138/55-84 mm Hg] 106/52mm Hg (12/27/22 6:35 PM) 104/56mm Hg (12/27/22 3:59 PM) Respiratory Rate [16-30 br/min] 16 br/min (12/27/22 6:35 PM) 18 br/min (12/27/22 3:59 PM) Temperature [96.8-100.4 DegF] 97.9 DegF (12/27/22 3:59 PM) Mode of Delivery (Oxygen) Room air (12/27/22 6:35 PM) Room air (12/27/22 3:59 PM) Room air (12/27/22 3:57 PM) Blood pressure sites Arm, left (12/27/22 6:35 PM) Arm, left (12/27/22 3:59 PM) Temperature Route Oral (12/27/22 3:59 PM) Dry Weight 70.5 kg (12/27/22 8:26 PM) 70.5 kg (12/27/22 6:35 PM) 70.5 kg (12/27/22 3:59 PM) Dry Weight Obtained Via Patient/family s tated (12/27/22 3:59 PM) Social History Social History Type Response Smoking Status Never (less than 100 in lifetime) entered on: 07/13/22 Sex Female Note * Behzad TAX FORM PREPARER, Cherelle: PERFORM Event Display: Patient Education Leaflets Authored Date: [id number] Superficial Thrombophlebitis ?? [id number] Superficial Thrombophlebitis?? The superficial veins are the veins near the surface of the skin. Superficial thrombophlebitis is aproblem that occurs when one or more of these veins become red, irritated, and swollen. This is most often because of a blood clot. Causes The problem may occur after injury to a vein. It may also occur after having an intravenous (IV) line placed. Other factors that can make the problem more likely include: ??? Varicose veins ??? Venous insufficiency ??? Bleeding disorders ??? Prolonged periods of rest and not moving around ??? IV drug abuse ? Use of control pills or estrogen therapy ?? Symptoms Symptoms may appear in the affected area. They can include: ??? Pain ??? Tenderness ??? Redness ??? Warmth ??? Swelling ??? Hardening of the vein In most cases, superficial thrombophlebitis resolves on its own with no problems. Treatment is focused on relieving symptoms. Sometimes, there is a risk that the deep veins in the body may also be involved. This can lead to more serious problems. In such cases, further testing and treatments may be needed. Your healthcare provider can tell you more about this. ?? Home care To help relieve pain and swelling, you may be told to: ??? Apply heat or cold to the affected area. Do this for up to 10 minutes as often as directed. o Heat: Use a warm compress, such as a heating pad. o Cold: Use a cold compress, such as a cold pack orbag of ice wrapped in a thin towel. ??? Take nonsteroidal anti-inflammatory drugs (NSAIDS), such asibuprofen. In some cases, other pain medicines may be prescribed. ??? Keep the affected limb (arm or leg) raised above heart level as directed. ??? Wear elastic compression stockings or bandages as directed. ??? Don't sit or stand for long periods. Get up and walk often. To help treat a blood clot, a blood thinner (anticoagulant) may be prescribed. If this is needed, be sure to take the medicine exactly as directed. ?? Follow-up care Follow up with your healthcare provider as advised.??If imaging tests are done, they will be reviewed by a doctor. You???ll be told the results and any new findings that may affect your treatment. ?? When to get medical advice Call your healthcare provider right away if any of these occur: ??? Fever of 100.4??F (38??C) or higher, or as directed by your healthcare provider ??? Increasing pain, swelling, or tenderness in theaffected area ??? Spreading warmth or redness in the affected area ?? Call 911 Call 911??if any of these occur: ??? Trouble breathing ??? Chest pain??or discomfort that worsens with deep breathing or coughing ??? Coughing (may cough up blood) ??? Fast or irregular heartbeat ???Sweating ??? Anxiety ??? Lightheadedness, dizziness, or fainting ??? Extreme confusion ??? Extreme d rowsiness or trouble waking up ??? New pain in the chest, arm, shoulder, neck, or upper back ?? Last Reviewed Date: 2021 ?? [id number] [employer]. All rights reserved. This information is not intended as a substitute for professional medical care. Always follow your healthcare professional's instructions. ?? Patient Care team information Care Team Personnel Name: Not on Staff, PCP Position: [facility] Physician (General Medicine) Member Role: PCP Name: Cherelle Wen NP Position: [facility] Associate Professional Member Role: ED Physician Cream Maker Address: Address: [address] [place] [address] Name: Leticia Stack MD Position: [facility] ED Medicine MD Member Role: Admitting Physician Address: Address: [address] [place] [address] Name: Karina Redmond Position: [facility] ED TA [facility] Name: Pan Pisano RN Position: [facility] ED RN W/OE and Tasks Member Role: Patient Care Provider Care Team Related Persons Name: CARMEN PARDO Address: home [address] [place] [address] Name: MAK DARDEN Address: [place] [address]
--- OUTSIDE RECORDS SUMMARY | 2023-06-13 23:42 | XMS_ITS | Continuity of Care Document ---
Author Name Unknown Organization [facility] ion Address [address] [place] [address]- Care Team Providers Care Studio Camera Operator Name Role Phone Zenaida Knowles MD Primary Care Physician [place] [facility] [place] - 08/27/[address] [address] Attending Physician: Zenaida Knowles MD Admitting Physician: Zenaida Knowles MD Referring Physician: Zenaida Knowles MD Allergies, Adverse Reactions, Alerts Substance Reaction Severity [...] constipation, 02/22/17 12:44:13, Route to Pharmacy Electronically, [id number], [facility]/pharmacy #[id number] Start Date: 02/22/17 Status: Ordered docusate [...] Date: 04/20/17 Stop Date: 05/10/17 Status: Ordered Metrogel-Vaginal Vaginally, Daily at bedtime, 0 Refills, Maintenance, 04/01/20 10:59:00 EST, Partial fill upon patient request Start Date: 04/01/20 Status: Ordered MetroGel-Vaginal 0.75% vaginal gel with [...] Status: Ordered ParaGard intrauteral device See Instructions, fiber optics supervisor Paragard and bring to your post- appointment for insertion, # 1 each, 0 Refills, Maintenance, 04/22/17 14:04:19, fiber optics supervisor Paragard and bring to your post- appointment [...] Status Health Status Inform ant Anemia(Confirmed) Active Dysfunctional voiding of urine(Confirmed) Active Mixed incontinence(Confirmed) Active Urinary straining(Confirmed) Active Pelvic pain in female(Confirmed) Active Levator spasm(Confirmed) Active Social History Social History Type Response Smoking Status Never (less than 100 in lifetime) entered on: 04/11/20 Sex Female
--- OUTSIDE RECORDS SUMMARY | 2023-06-13 23:42 | XMS_ITS | Continuity of Care Document ---
Author Name Unknown Organization [facility] Address [address] [place] [address]- Care Team Providers Care Filenet Architect Name Role Phone Zenaida Knowles MD Primary Care Physician [place] [facility] [place] 08/30/22 [facility] [address] [address]- Attending Physician: Not on Staff, Attending MD [...] 07/27/22 11:41:00 EDT, Route to Pharmacy Electronically, [facility], [facility] #[id number], Partial fill upon patient request if t... Start Date: 07/27/22 Status: Ordered ferrous sulfate 325 mg oral tablet 1 tablet = 325 mg, By Mouth, Daily, # 60 tablet, 3 Refills, Maintenance, 07/26/22 21:24:00 EDT, Tablet, [facility], [facility] #[id number], Partial fill upon patient request if the [...] Refills, Maintenance, 07/27/22 11:41:00 EDT, REC Powder, [facility], [facility] #[id number], Partial fill upon patient... Start Date: 07/27/22 Status: Ordered Multivitamins with Folic Acid 1 mg oral tablet 1 tablet, By Mouth, Daily, # 90 tablet, 3 Refills, Maintenance, 06/15/22 16:06:00 EST, Tablet, [facility]/pharmacy #[id number], Partial fill upon patient request if the prescription is for a schedule II opioid drug., 1 tablet By Mouth Daily, 148, cm, 01/17/22 23:1... Start Date: 06/15/22 Status: Ordered prochlorperazine 25 mg rectal suppository 1 supp = 25 mg, Rectally, Once, PRN as needed for nausea/vomiting, # 10 supp, 0 Refills, Soft Stop,08/14/22 19:34:00 EDT, Suppository, [facility]/pharmacy #1130, Partial fill upon patient request if the prescription is for a schedule II opioid drug., 148, c... Start Date: 08/14/22 Status: Ordered Reglan 5 mg oral tablet 1 tablet = 5 mg, By Mouth, Every 6 hours, PRN Nausea & Vomiting, # 28 tablet, 1 Refills, Maintenance, 07/30/22 10:53:00 EDT, Tablet, [facility] #[id number], Partial fill upon patient request if the [...] Personnel Name: Benson SCHNEIDER, Zenaida Bashir Position: [facility] BIOMATHEMATICIAN MD Member Role: PCP Address: Address: [address] [place], [place] [address] [place] [address] Care Team Related Persons Name: CARMEN PARDO Address: home [address] [place] [id number] Name: MAK DARDEN Address: home [address] [place] [address]
--- OUTSIDE RECORDS SUMMARY | 2023-06-13 23:42 | XMS_ITS | Continuity of Care Document ---
Author Name Unknown Organization [facility] Address [address] [place] [address]- Care Team Providers Care Restrictive Preparation Operator Name Role Phone Zenaida Knowles MD Primary Care Physician Encounter [facility] Date(s): 01/17/22 - 01/17/[address] [address]- Encounter Diagnosis STD exposure(Final) - 01/17/22 Discharge Disposition: A-D/C Home Attending Physician: José Mehta DO Admitting Physician: José Mehta DO Referring Physician: Not on Staff, Referring MD [...] vis 08/09/09 8Admin Note: vis 02/23/11 Medications doxycycline hyclate 100 mg oral capsule 1 capsule = 100 mg, By Mouth, 2 times a day, for 10 days, # 20 capsule, 0 Refills, Acute 01/27/22 22:52:00 EDT, 01/17/22 22:52:00 EDT, Capsule, [facility]/pharmacy #[id number], Partial fill upon patient request if the prescription is for a schedule II opioid drug.... Start Date: 01/17/22 Stop Date: 01/27/22 Status: Ordered ondansetron 4 mg oral tablet, disintegrating 1 tablet = 4 mg, By Mouth, Every 8 hours, PRN as needed for nausea/vomiting, # 12 tablet, 0 Refills, Maintenance, 01/17/22 22:52:00 EDT, DIS Tablet, [facility]/pharmacy #[id number], Partial fill upon patient request if the prescription is for a schedule II opioid... Start Date: 01/17/22 Status: Ordered Topamax 25 mg oral tablet 1 tablet = 25 mg, By Mouth, 2 times a day, 0 Refills, Maintenance, 01/17/22 20:57:00 EDT, Partial fill upon patient request if the prescription is for a schedule II opioid drug. Start Date: 01/17/22 Status: Ordered Problem List Condition Effective Dates Status Health Status Inform ant Anemia(Confirmed) Active Dysfunctional voiding of urine(Confirmed) Active Mixed incontinence(Confirmed) Active Urinary straining(Confirmed) Active Obese class I(Confirmed) Active Pelvic pain in female(Confirmed) Active Levator spasm(Confirmed) Active Results Orders for Microbiology Reports Name Date Group A Strep Screen and Culture 01/17/22 Microbiology Reports TEST:Group A Strep Screen and Culture STATUS:Unauthenticated BODY SITE: SOURCE:THROAT COLLECTED DATE/TIME:01/17/22 9:21 PM Group A Strep Screen and Culture SPECIMEN DESCRIPTION : THROAT SWAB SPECIAL REQUESTS : NONE DIRECT EXAM : RAPID GROUP A RESULT IS NEGATIVE, REFER TO CULTURE RESULT. REPORT STATUS : PRELIMINARY REPORT Vital Signs Most recent to oldest [Reference Range]: 1 2 3 Height 148 cm (01/17/22 11:18 PM) 148 cm (01/17/22 8:55 PM) 148 cm (01/17/22 8:32 PM) Weight 74.3 kg (01/17/22 11:18 PM) 74.3 kg (01/17/22 8:55 PM) 74.3 kg (01/17/22 8:32 PM) Oxygen Saturation [94-100 %] 100 % (01/17/22 11:18 PM) 100 % (01/17/22 8:32 PM) Pulse Rate [55-90 bpm] 75 bpm (01/17/22 11:18 PM) 85 bpm (01/17/22 8:32 PM) Body Mass Index [18.5-24.99] 33.92 *>HHI* (01/17/22 11:18 PM) 33.92 *>HHI* (01/17/22 8:32 PM) Blood Pressure [90-138/55-84 mm Hg] 114/81mm Hg (01/17/22 11:18 PM) 125/79mm Hg (01/17/22 8:32 PM) Respiratory Rate [16-30 br/min] 18 br/min (01/17/22 11:18 PM) 18 br/min (01/17/22 8:32 PM) Temperature [96.8-100.4 DegF] 97.3 DegF (01/17/22 8:32 PM) Liters per Minute 0 L/min (01/17/22 11:18 PM) Mode of Delivery (Oxygen) Room air (01/17/22 11:18 PM) Room air (01/17/22 8:32 PM) Blood pressure sites Arm, left (01/17/22 11:18 PM) Arm, right (01/17/22 8:32 PM) Temperature Route Temporal (01/17/22 8:32 PM) Dry Weight 74.3 kg (01/17/22 11:18 PM) 74.3 kg (01/17/22 8:55 PM) 74.3 kg (01/17/22 8:32 PM) Weight Obtained Via Standing scale (01/17/22 8:32 PM) Social History Social History Type Response Smoking Status Never (less than 100 in lifetime) entered on: 04/11/20 Sex Female Care Team Personnel Name: Zenaida Knowles MD Address: [address] [place] [address]
--- OUTSIDE RECORDS SUMMARY | 2023-06-13 23:42 | XMS_ITS | Continuity of Care Document ---
Author Name Unknown Organization [facility] Address [address] [place] [address]- Care Team Providers Care Cafeteria Assistant Name Role Phone Benson SCHNEIDER, Zenaida Covarrubias Primary Care Physic alma [facility]counter [facility] Date(s): 12/20/22 - 01/19/[address] [address]- Allergies, Adverse Reactions, Alerts No Known Allergies [...] Maintenance, 12/20/22 15:49:00 EDT, Tablet, Community, A [facility] Rx #[id number], Partial fill upon patient request if the prescription is for aschedule II opioid drug., 148, cm, 12/20/22 15:26:0... Start Date: 12/20/22 Status: Ordered valACYclovir 500 mg oral tablet [...] Personnel Name: Benson SCHNEIDER, Zenaida Covarrubias Position: [facility] WOOD MOLDER Member Role: PCP Address: Address: [address] [address]- Care Team Related Persons Name: CARMEN PARDO Address: [address] [place] [address] Name: MAK DARDEN Address: [address] [place] [address]
--- OUTSIDE RECORDS SUMMARY | 2023-06-13 23:42 | XMS_ITS | Continuity of Care Document ---
Author Name Unknown Organization [facility] Address [address] [place] [address]- Care Team Providers Care Mill Oiler Name Role Phone Benson SCHNEIDER, Zenaida Covarrubias Primary Care Physic alma [place] [facility] Date(s): 04/18/23 - 05/18/[address] [address] Attending Physician: Ariela Bailey Admitting Physician: Ariela Bailey Referring Physician: AdmtrAriela Allergies, Adverse Reactions, Alerts No Known Allergies Immunizations Given and Recorded Vaccine Date Status Refusal Reason influenza virus vaccine, inactivated 02/14/23 Give n influenza virus vaccine, inactivated 02/22/17 Give n influenza virus vaccine, inactivated 1 03/08/11 Gi alvaro influenza virus vaccine, inactivated 2 06/30/10 Gi alvaro tetanus/diphtheria/pertussis, acel(Tdap) 11/20/22 Given tetanus/diphtheria/pertussis, acel(Tdap) 02/22/17 Given tetanus/diphtheria/pertussis, acel(Tdap) 3 02/02/11 Given SARS-CoV-2 (COVID-19) mRNA-1273 vaccine 10/11/21 R ecorded SARS-CoV-2 (COVID-19) mRNA-1273 vaccine 02/08/21 R ecorded SARS-CoV-2 (COVID-19) mRNA-1273 vaccine 12/28/20 R ecorded Fluarix (oldterm) 4 02/11/12 Given Human Papillomavirus Vaccine 5 02/11/12 Given Human Papillomavirus Vaccine 6 07/06/11 Given Human Papillomavirus Vaccine 7 03/08/11 Given Menactra (oldterm) 8 03/08/11 Given 1Admin Note: vis 12/2010 2Admin Note: vis 12/20/09 3Admin Note: VIS given 4Admin Note: vis given 11/12/11 5Admin Note: VIS 07/04/2011 6Admin Note: vis 08/09/09 7Admin Note: vis 08/09/09 8Admin Note: vis 02/23/11 Medications docusate sodium 100 mg oral capsule 1 capsule = 100 mg, By Mouth, 2 times a day, PRN as needed for constipation, # 60 capsule, 0 Refills, Maintenance, 02/13/23 16:12:00 EDT, Capsule, Community, A [facility] Rx #[id number], Partial fill upon patient request if the prescription is for a schedul... Start Date: 02/13/23 Status: Ordered docusate sodium 100 mg oral capsule 1 capsule = 100 mg, By Mouth, 2 times a day, PRN as needed for constipation, # 60 capsule, 0 Refills, Maintenance, 02/14/23 12:25:00 EDT, Capsule, Community, A [facility] Rx #[id number], Partial fill upon patient request if the prescription is for a schedul... Start Date: 02/14/23 Status: Ordered sertraline 50 mg oral tablet 1 tablet = 50 mg, By Mouth, Daily, # 90 tablet, 0 Refills, Maintenance, 12/20/22 15:49:00 EDT, Tablet, Community, [facility] Rx #[id number], Partial fill upon patient request if the prescription is for aschedule II opioid drug., 148, cm, 12/20/22 15:26:0... Start Date: 12/20/22 Status: Ordered Problem List Condition Confirmation Course [...] 100 in lifetime) entered on: 07/13/22 Sex Patient Care team information Care Team Personnel Name: Benson SCHNEIDER, Zenaida Covarrubias Position: [facility] BRASS INSTRUMENT REPAIR TECHNICIAN MD Member Role: PCP Address: [address] [place] [address]- Care Team Related Persons Name: BERNARDA CREWS Address: [address] Address: home [address] [place] [address] Name: CHAR CARMEN Address: home [address] [place] [address] Name: MAK DARDEN Address: [place] [address]
--- OUTSIDE RECORDS SUMMARY | 2023-06-13 23:42 | XMS_ITS | Continuity of Care Document ---
Author Name Unknown Organization [facility] Address [address] [place] [address]- Care Team Providers Care Sas Architect Name Role Phone Benson SCHNEIDER, Zenaida Covarrubias Primary Care Physic alma [facility]counter [facility] Date(s): 01/31/23 - 03/03/[address] [address] Attending Physician: Benson SCHNEIDER, Zenaida Covarrubias Admitting Physician: Benson SCHNEIDER, Zenaida Covarrubias Referring Physician: Tammy Morel DO Allergies, Adverse Reactions, Alerts No Known Allergies [...] 16:12:00 EDT, Capsule, Community, A [facility] Rx #[id number], Partial fill upon patient request if the prescription is for a schedul... Start Date: 02/13/23 Status: Ordered docusate sodium 100 mg oral capsule 1 capsule = 100 mg, By Mouth, 2 times a day, PRN as needed for constipation, # 60 capsule, 0 Refills, Maintenance, 02/14/23 12:25:00 EDT, Capsule, Community, A [facility] Rx #[id number], Partial fill upon patient request if the prescription is for a schedul... Start Date: 02/14/23 Status: Ordered sertraline 50 mg oral tablet 1 tablet = 50 mg, By Mouth, Daily, # 90 tablet, 0 Refills, Maintenance, 12/20/22 15:49:00 EDT, Tablet, Community, A [facility] Rx #[id number], Partial fill upon patient request if the [...] Personnel Name: Benson SCHNEIDER, Zenaida Covarrubias Position: [facility] BILINGUAL CASE MANAGER MD Member Role: PCP Address: Address: [address] [place] [address]- Care Team Related Persons Name: BERNARDA CREWS Address: [address] Address: home [address] Name: CARMEN PARDO Address: home [address] [place] [address] Name: MAK DARDEN Address: [place] [address]
--- OUTSIDE RECORDS SUMMARY | 2023-06-13 23:42 | XMS_ITS | Continuity of Care Document ---
Author Name Unknown Organization [facility] Address [address] [place] [address]- Care Team Providers Care Icu Rn Name Role Phone Benson SCHNEIDER, Zenaida Covarrubias Primary Care Physic alma [facility]counter [facility] Date(s): 03/15/23 - 04/20/[address] [address]- Attending Physician: Not on Staff, Attending MD [...] 16:12:00 EDT, Capsule, Community, A [facility] Rx #[id number], Partial fill upon patient request if the prescription is for a schedul... Start Date: 02/13/23 Status: Ordered docusate sodium 100 mg oral capsule 1 capsule = 100 mg, By Mouth, 2 times a day, PRN as needed for constipation, # 60 capsule, 0 Refills, Maintenance, 02/14/23 12:25:00 EDT, Capsule, Community, A [facility] Rx #[id number], Partial fill upon patient request if the prescription is for a schedul... Start Date: 02/14/23 Status: Ordered metroNIDAZOLE 500 mg oral tablet 1 tablet = 500 mg, By Mouth, Every 12 hours, for 7 days, # 14 tablet, 0 Refills, Acute 04/25/23 17:11:00 EST, 04/18/23 17:11:00 EST, Tablet, Community, A [facility] Rx #[id number], Partial fill upon patient request if the prescription is for a schedule II o... Start Date: 04/18/23 Stop Date: 04/25/23 Status: Ordered sertraline 50 mg oral tablet 1 tablet = 50 mg, By Mouth, Daily, # 90 tablet, 0 Refills, Maintenance, 12/20/22 15:49:00 EDT, Tablet, Community, A [facility] Rx #[id number], Partial fill upon patient request if the [...] Personnel Name: Benson SCHNEIDER, Zenaida Covarrubias Position: S BUS CLEANER MD Member Role: PCP Address: Address: [address] [place] [address] [place] [address]- Care Team Related Persons Name: MARS BERNARDA Address: [address] Address: [address] Name: CARMEN PARDO Address: [address] [place] [address] Name: MAK DARDEN Address: [address] [place] [address]
--- OUTSIDE RECORDS SUMMARY | 2023-06-13 23:42 | XMS_ITS | Continuity of Care Document ---
Author Name Unknown Organization [facility] Address [address] [place] [address]- Care Team Providers Care Senior Software Engineer Analytics Name Role Phone Not on Staff, PCP Primary Care Physician Unavail able [facility]counter [facility] Date(s): 07/24/19 - 07/31/19 [facility] [address] [place] [address]- [facility] Attending Physician: Richard Kramer MD Referring Physician: Richy SCHNEIDER, Emeterio Bashir Allergies, Adverse [...] Mouth Daily Start Date: 10/15/17 Status: Ordered Augmentin 875 mg-125 mg oral tablet 1 tablet, By Mouth, 2 times a day, for 10 days, with food or milk for sinus infection, # 20 tablet,0 Refills, Acute 08/03/19 19:08:00 EDT, 07/24/19 19:08:00 EDT, Tablet, [facility]/pharmacy #1130, 148, cm,07/24/19 18:18:00 EDT, Height, 67.7, kg, 07/24/19... Start Date: 07/24/19 Stop Date: 08/03/19 Status: Ordered Colace sodium 100 mg oral capsule 100 mg, 1, capsule, By Mouth, 2 times a day, PRN, # 60 capsule, Refills 1, Tot. Refills 1, Maintenance, for constipation, 02/22/17 12:44:13, Route to Pharmacy Electronically, [id number], [facility]/pharmacy #1130 Start Date: 02/22/17 Status: Ordered cyclobenzaprine 5 mg oral tablet 1 tablet = 5 mg, By Mouth, 2 times a day, PRN muscle spasm, for 10 days, # 20 tablet, 0 Refills, Acute 08/03/19 19:07:00 EDT, 07/24/19 19:07:00 EDT, Tablet, [facility]/pharmacy #1130, 148, cm, 07/24/19 18:18:00 EDT, Height, 67.7, kg, 07/24/19 18:18:00 EDT, D... Start Date: 07/24/19 Stop Date: 08/03/19 Status: Ordered docusate sodium 100 mg oral [...] Ordered ParaGard intrauteral device See Instructions, supervisor lens generating Paragard and bring to your post- appointment for insertion, # 1 each, 0 Refills, Maintenance, 04/22/17 14:04:19, supervisor lens generating Paragard and bring to your post- appointment for insertion Start Date: 04/22/17 Status: Ordered sulindac 200 mg oral tablet 1 tablet = 200 mg, By Mouth, 2 times a day, PRN Pain , Moderate, with food or milk, # 20 tablet, 0 Refills, Maintenance, 07/24/19 19:06:00 EDT, Tablet, [facility]/pharmacy #1130, 148, cm, 07/24/19 18:18:00 EDT, Height, [...] Status Health Status Inform ant Anemia(Confirmed) Active Vital Signs Most recent to oldest [Reference Range]: 1 Height 148 cm (07/24/19 6:18 PM) Weight 149.4 kg (07/24/19 6:18 PM) Oxygen Saturation [94-100 %] 100 % (07/24/19 6:18 PM) Pulse Rate [55-90 bpm] 86 bpm (07/24/19 6:18 PM) Body Mass Index [18.5-24.99] 68.21 *>HHI* (07/24/19 6:18 PM) Blood Pressure [90-138/55-84 mm Hg] 113/ 55mm Hg (07/24/19 6:18 PM) Respiratory Rate [16-30 br/min] 18 br/mi n (07/24/19 6:18 PM) Temperature [96.8-100.4 DegF] 98.8 DegF (07/24/19 6:18 PM) Mode of Delivery (Oxygen) Room air (07/24/19 6:18 PM) Blood pressure sites Arm, right (07/24/19 6:18 PM) Temperature Route Oral (07/24/19 6:18 PM) Dry Weight 67.7 kg (07/24/19 6:18 PM) Weight Obtained Via Standing scale (07/24/19 6:18 PM) Dry Weight Obtained Via Standing scale (07/24/19 6:18 PM)
--- OUTSIDE RECORDS SUMMARY | 2023-06-13 23:42 | XMS_ITS | Continuity of Care Document ---
Author Name Unknown Organization [facility] Address [address] [place] [address]- Care Team Providers Care Director Hospice Operations Name Role Phone Benson SCHNEIDER, Zenaida Covarrubias Primary Care Physic alma [facility]counter [facility] Date(s): 01/17/23 - 02/16/[address] [address]- Allergies, Adverse Reactions, Alerts No Known Allergies [...] vis 08/09/09 8Admin Note: vis 02/23/11 Medications Dilaudid 2 mg oral tablet 1 tablet = 2 mg, By Mouth, Every 4 hours, PRN as needed for pain, for 7 days, # 15 tablet, 0 Refills, Acute 02/21/23 12:25:00 EDT, 02/14/23 12:25:00 EDT, Tablet, Community, A [facility] Rx #[id number], Partial fill upon patient request if the prescription i... Start Date: 02/14/23 Stop Date: 02/21/23 Status: Ordered docusate sodium 100 mg oral capsule 1 capsule = 100 mg, By Mouth, 2 times a day, PRN as needed for constipation, # 60 capsule, 0 Refills, Maintenance, 02/13/23 16:12:00 EDT, Capsule, Community, A [facility] Rx #[id number], Partial fill upon patient request if the prescription is for a schedul... Start Date: 02/13/23 Status: Ordered docusate sodium 100 mg oral capsule 1 capsule = 100 mg, By Mouth, 2 times a day, PRN as needed for constipation, # 60 capsule, 0 Refills, Maintenance, 02/14/23 12:25:00 EDT, Capsule, Community, A [facility] Rx #[id number], Partial fill upon patient request if the prescription is for a schedul... Start Date: 02/14/23 Status: Ordered ibuprofen 800 mg oral tablet 800 mg, 1, tablet, By Mouth, Every 6 hours, for 7 days, # 50 tablet, Refills 0, Tot. Refills 0, Acute 02/21/23 12:25:00 EDT, 02/14/23 12:25:00 EDT, Route to Pharmacy Electronically, Community, A [facility] Rx #[id number], Partial fill upon patient request i... Start Date: 02/14/23 Stop Date: 02/21/23 Status: Ordered oxyCODONE 5 mg oral capsule 1 capsule = 5 mg, By Mouth, Every 6 hours, PRN for pain, for 5 days, # 12 capsule, 0 Refills, Acute02/18/23 16:12:00 EDT, 02/13/23 16:12:00 EDT, Capsule, Community, A [facility] Rx #[id number], Partial fill upon patient request if the prescription is for a... Start Date: 02/13/23 Stop Date: 02/18/23 Status: Ordered sertraline 50 mg oral tablet 1 tablet = 50 mg, By Mouth, Daily, # 90 tablet, 0 Refills, Maintenance, 12/20/22 15:49:00 EDT, Tablet, Community, A [facility] Rx #[id number], Partial fill upon patient request if the prescription is for aschedule II opioid drug., 148, cm, 12/20/22 15:26:0... Start Date: 12/20/22 Status: Ordered simethicone 80 mg oral tablet, chewable 80 mg, 1, tablet, By Mouth, 3 times a day after meals and bedtime, for 7 days, # 90 tablet, Refills0, Tot. Refills 0, Acute 02/20/23 16:12:00 EDT, 02/13/23 16:12:00 EDT, Route to Pharmacy Electronically, Community, A [facility] Rx #[id number], Partial fill... Start Date: 02/13/23 Stop Date: 02/20/23 Status: Ordered simethicone 80 mg oral tablet, chewable 80 mg, 1, tablet, By Mouth, 3 times a day after meals and bedtime, for 7 days, # 90 tablet, Refills0, Tot. Refills 0, Acute 02/21/23 12:25:00 EDT, 02/14/23 12:25:00 EDT, Route to Pharmacy Electronically, [facility], [facility] #[id number], Partial fill... Start Date: 02/14/23 Stop Date: 02/21/23 Status: Ordered Tylenol 8 Hour 650 mg oral tablet, extended release 2 tablet = 1,300 mg, By Mouth, Every 8 hours, PRN as needed for pain, for 7 days, # 50 tablet, 0 Refills, Acute 02/21/23 12:25:00 EDT, 02/14/23 12:25:00 EDT, ER Tablet, Community, A [facility] Rx #[id number], Partial fill upon patient request if the prescri... Start Date: 02/14/23 Stop Date: 02/21/23 Status: Ordered Unisom 25 mg oral tablet 1 tablet = 25 mg, By Mouth, Daily at bedtime, PRN for sleep, # 32 tablet, 0 Refills, Acute 02/28/2315:57:00 EDT, 01/29/23 15:57:00 EDT, Tablet, Community, A [facility] Rx #[id number], Partial fill upon patient request if the prescription is for a schedule... Start Date: 01/29/23 Stop Date: 02/28/23 Status: Ordered Problem List Condition Confirmation Course [...] Personnel Name: Benson SCHNEIDER, Zenaida Covarrubias Position: [facility] PATIENT REGISTRATION MANAGER Member Role: PCP [facility]: [facility] [place] [address]- Care Team Related Persons Name: BERNARDA CREWS Address: Address: [address] Name: CARMEN PARDO Address: [address] [place] [address] Name: MAK DARDEN Address: [address] [place] [address]
--- OUTSIDE RECORDS SUMMARY | 2023-06-13 23:42 | XMS_ITS | Continuity of Care Document ---
Author Name Unknown Organization [facility] Address [address] [facility], [address] [place] [address]- Care Team Providers Care Laminating Press Operator Name Role Phone Zenaida Knowles MD Primary Care Physician [phone] [place] [facility] [place](s): 07/26/22 - 08/25/22 [facility] [address] [place], [place] [address] Allergies, Adverse Reactions, Alerts No Known Allergies [...] 07/27/22 11:41:00 EDT, Route to Pharmacy Electronically, [id number], Partial fill upon patient request if t... Start Date: 07/27/22 Status: Ordered ferrous sulfate 325 mg oral tablet 1 tablet = 325 mg, By Mouth, Daily, # 60 tablet, 3 Refills, Maintenance, 07/26/22 21:24:00 EDT, Tablet, [facility], [facility][id number], Partial fill upon patient request if the prescription is for a schedule II opioid drug., 148chandra, 07/13/22 15:07:... Start Date: 07/26/22 Status: Ordered Metamucil 3.4 gm/5.2 gm oral powder for reconstitution = 1.7 Gm, By Mouth, 3 times a day, PRN as needed for constipation, dissolve in 8 oz of fluid; may use 1-3x/day as needed, # 425 Gm, 0 Refills, Maintenance, 07/27/22 11:41:00 EDT, REC Powder, [facility], [facility] Rx #[id number], Partial fill upon patient... Start Date: 07/27/22 Status: Ordered Multivitamins with Folic Acid 1 mg oral tablet 1 tablet, By Mouth, Daily, # 90 tablet, 3 Refills, Maintenance, 06/15/22 16:06:00 EST, Tablet, [facility]/pharmacy #1130, Partial fill upon patient request if the prescription is for a schedule II opioid drug., 1 tablet By Mouth Daily, chandra Peter, 01/17/22 23:1... Start Date: 06/15/22 Status: Ordered prochlorperazine 25 mg rectal suppository 1 supp = 25 mg, Rectally, Once, PRN as needed for nausea/vomiting, # 10 supp, 0 Refills, Soft Stop,08/14/22 19:34:00 EDT, Suppository, [facility]/pharmacy #1130, Partial fill upon patient request if the prescription is for a schedule II opioid drug., 148, c... Start Date: 08/14/22 Status: Ordered Reglan 5 mg oral tablet 1 tablet = 5 mg, By Mouth, Every 6 hours, PRN Nausea & Vomiting, # 28 tablet, 1 Refills, Maintenance, 07/30/22 10:53:00 EDT, Tablet, [facility], [facility] Rx #[id number], Partial fill upon patient request if the [...] Personnel Name: Benson SCHNEIDER, Zenaida Bashir Position: [facility] AEROSPACE ASSEMBLER MD Member Role: PCP Address: Address: [address] [place] [address]- Care Team Related Persons Name: CARMEN PARDO Address: home [address] [place] [address] Name: MAK DARDEN Address: home [address] [place] [address]
--- OUTSIDE RECORDS SUMMARY | 2023-06-13 23:42 | XMS_ITS | Continuity of Care Document ---
Author Name Unknown Organization [facility] Address [address] [place] [address]- Care Team Providers Care Manufacturing Sales Representative Name Role Phone Benson SCHNEIDER, Zenaida Covarrubias Primary Care Physic alma [facility]counter [facility] Date(s): 12/04/22 - 01/03/[address] [address]- Allergies, Adverse Reactions, Alerts No Known Allergies [...] 01/10/23 19:50:00 EDT, 12/27/22 19:50:00 EDT, Solution, [facility]/pharmacy #1130, Partial fill upon patient request ifthe prescription is for a schedule II opioid drug.,... Start Date: 12/27/22 Stop Date: 01/10/23 Status: Ordered sertraline 50 mg oral tablet 1 tablet = 50 mg, By Mouth, Daily, # 90 tablet, 0 Refills, Maintenance, 12/20/22 15:49:00 EDT, Tablet, [facility], [facility][id number], Partial fill upon patient request if the [...] Name: Benson SCHNEIDER, Zenaida Covarrubias Position: S ENGINEER THIRD ASSISTANT MD Member Role: PCP Address: Address: [address] [address]- Care Team Related Persons Name: CARMEN PARDO Address: home [address] [place] [address] Name: MAK [place]EN [place] [address]
--- OUTSIDE RECORDS SUMMARY | 2023-06-13 23:42 | XMS_ITS | Continuity of Care Document ---
Author Name Unknown Organization [facility] Address [address] [place] [address]- Care Team Providers Care Coke Oven Patcher Name Role Phone Benson SCHNEIDER, Zenaida Covarrubias Primary Care Physic alma [facility] Date[facility]): 02/[facility]/23 - 03/13/[address] [address]- Allergies, Adverse Reactions, Alerts No Known Allergies [...] 16:12:00 EDT, Capsule, Community, A [facility] Rx #[id number], Partial fill upon patient request if the prescription is for a schedul... Start Date: 02/13/23 Status: Ordered docusate sodium 100 mg oral capsule 1 capsule = 100 mg, By Mouth, 2 times a day, PRN as needed for constipation, # 60 capsule, 0 Refills, Maintenance, 02/14/23 12:25:00 EDT, Capsule, Community, A [facility] Rx #[id number], Partial fill upon patient request if the prescription is for a schedul... Start Date: 02/14/23 Status: Ordered sertraline 50 mg oral tablet 1 tablet = 50 mg, By Mouth, Daily, # 90 tablet, 0 Refills, Maintenance, 12/20/22 15:49:00 EDT, Tablet, Community, A [facility] Rx #[id number], Partial fill upon patient request if the [...] Name: Benson SCHNEIDER, Zenaida Covarrubias Position: S PRINCIPAL TRAINER MD Member Role: PCP Address: Address: [address] [address] Care Team Related Persons Name: BERNARDA CREWS Address: [address] Address: home [address] [place] [address] [place] Name: CARMEN PARDO Address: home [address] [place] [address] Name: MAK DARDEN Address: [place] [address]
--- OUTSIDE RECORDS SUMMARY | 2023-06-13 23:42 | XMS_ITS | Continuity of Care Document ---
Author Name Unknown Organization [facility] Address [address] [facility], 4t [place] [address]- Care Team Providers Care Black Leather Buffer Name Role Phone Zenaida Knowles MD Primary Care Physician [phone] [facility] [place] 08/22/20 - 09/21/20 [facility] [address], 4th [place] [address]- Attending Physician: Ariela Bailey Admitting Physician: Ariela Bailey Referring Physician: AdmtrAriela Allergies, Adverse Reactions, Alerts Substance Reaction Severity [...] constipation, 02/22/17 12:44:13, Route to Pharmacy Electronically, [id number], [facility]/pharmacy #1130 Start Date: 02/22/17 Status: Ordered docusate [...] Status: Ordered ParaGard intrauteral device See Instructions, cupola repairer Paragard and bring to your post- appointment for insertion, # 1 each, 0 Refills, Maintenance, 04/22/17 14:04:19, cupola repairer Paragard and bring to your post- appointment [...]
--- OUTSIDE RECORDS SUMMARY | 2023-06-13 23:42 | XMS_ITS | Continuity of Care Document ---
Author Name Unknown Organization [facility] Address [address] [place] [address]- Care Team Providers Care Product Introduction Manager Name Role Phone Benson SCHNEIDER, Zenaida Covarrubias Primary Care Physic alma [facility] Date(s): 11/08/22 - 12/08/[address] [address]- Allergies, Adverse Reactions, Alerts No Known Allergies [...] vis 08/09/09 8Admin Note: vis 02/23/11 Medications clotrimazole 1% vaginal cream with applicator 1 application, Vaginally, Daily at bedtime, for 7 days, # 45 Gm, 0 Refills, Acute 12/12/22 18:25:00EDT, 12/05/22 18:25:00 EDT, Cream, Community, A [facility] Rx #[id number], Partial fill upon patient request if the prescription is for a schedule II opioid... Start Date: 12/05/22 Stop Date: 12/12/22 Status: Ordered Venofer 20 mg/mL intravenous solution = 100 mg, IV Infusion, Every week, # 10 mL, 1 Refills, Maintenance, 11/21/22 16:00:00 EDT, [facility], Partial fill upon patient request if [...] Personnel Name: Benson SCHNEIDER, Zenaida Covarrubias Position: [facility] PERSONAL LINES SALES EXECUTIVE MD Member Role: PCP Address: Address: [address] [address]- Care Team Related Persons Name: CARMEN PARDO Address: home [address] [place] [address] Name: MAK DARDEN Address: home [address] [place] [address]
--- OUTSIDE RECORDS SUMMARY | 2023-06-13 23:42 | XMS_ITS | Continuity of Care Document ---
Author Name Unknown Organization [facility] Address [address] [place] [address]- Care Team Providers Care Steam Trap Man Name Role Phone Zenaida Knowles MD Primary Care Physician [phone] [place] [facility] [place](s[place] 05/10/20 - 06/09/20 [facility] [address] [address]- Attending Physician: Ariela Bailey Admitting Physician: Ariela [...] constipation, 02/22/17 12:44:13, Route to Pharmacy Electronically, [id number], [facility]/pharmacy #1130 Start Date: 02/22/17 Status: Ordered docusate [...] Ordered ParaGard intrauteral device See Instructions, supervisor opening and picking Paragard and bring to your post- appointment for insertion, # 1 each, 0 Refills, Maintenance, 04/22/17 14:04:19, supervisor opening and picking Paragard and bring to your post- appointment [...]
--- OUTSIDE RECORDS SUMMARY | 2023-06-13 23:42 | XMS_ITS | Continuity of Care Document ---
Author Name Unknown Organization [facility] Address [address] [place] [address]- Care Team Providers Care Reconciliation Manager Name Role Phone Benson SCHNEIDER, Zenaida Covarrubias Primary Care Physic alma [facility] Date[facility]s): 01/29/23 - 05/26/[address] [address]- Attending Physician: Not on Staff, Attending MD [...] 16:12:00 EDT, Capsule, Community, A [facility] #[id number], Partial fill upon patient request if the prescription is for a schedul... Start Date: 02/13/23 Status: Ordered docusate sodium 100 mg oral capsule 1 capsule = 100 mg, By Mouth, 2 times a day, PRN as needed for constipation, # 60 capsule, 0 Refills, Maintenance, 02/14/23 12:25:00 EDT, Capsule, Community, A [facility] Rx #[id number], Partial fill upon patient request if the prescription is for a schedul... Start Date: 02/14/23 Status: Ordered sertraline 50 mg oral tablet 1 tablet = 50 mg, By Mouth, Daily, # 90 tablet, 0 Refills, Maintenance, 12/20/22 15:49:00 EDT, Tablet, Community, A [facility] Rx #[id number], Partial fill upon patient request if the [...] Name: Benson SCHNEIDER, Zenaida Covarrubias Position: S AIRLINE RADIO OPERATOR MD Member Role: PCP Address: Address: [address] [address] Care Team Related Persons Name: BERNARDA CREWS Address: [address] Address: [address] [place] [address] [place] Name: CARMEN PARDO Address: home [address] [place] [address] Name: MAK DARDEN Address: [address] [address]
--- OUTSIDE RECORDS SUMMARY | 2023-06-13 23:42 | XMS_ITS | Continuity of Care Document ---
Author Name Unknown Organization [facility] Address [address] [place] [address]- Care Team Providers Care Machinist First Class Name Role Phone Not on Staff, PCP Primary Care Physician Unavail able [facility] Date(s): 04/04/20 - 05/04/[address] [address] Allergies, Adverse Reactions, Alerts Substance Reaction Severity [...] constipation, 02/22/17 12:44:13, Route to Pharmacy Electronically, [id number], [facility]/pharmacy #1130 Start Date: 02/22/17 Status: [...] Status: Ordered ParaGard intrauteral device See Instructions, cold mill supervisor Paragard and bring to your post- appointment for insertion, # 1 each, 0 Refills, Maintenance, 04/22/17 14:04:19, cold mill supervisor Paragard and bring to your post- [...] Status Health Status Inform ant Anemia(Confirmed) Active Mixed incontinence(Confirmed) Active Urinary straining(Confirmed) Active Pelvic pain in female(Confirmed) Active Levator spasm(Confirmed) Active Social History Social History Type Response Smoking Status Never (less than 100 in lifetime) entered on: 04/11/20 Sex Female
--- OUTSIDE RECORDS SUMMARY | 2023-06-13 23:42 | XMS_ITS | Continuity of Care Document ---
Author Name Unknown Organization [facility] Address [address] [place] [address]- Care Team Providers Care Circuit Court Magistrate Name Role Phone Zenaida Knowles MD Primary Care Physician [phone] Encounter [facility] Date(s): 07/28/20 - 08/27/[address] [address] Attending Physician: Ariela Bailey Admitting Physician: AdmtrAriela Referring Physician: Admtr ArVicky Allergies, Adverse Reactions, Alerts Substance Reaction Severity [...] constipation, 02/22/17 12:44:13, Route to Pharmacy Electronically, [id number], [facility]/pharmacy #1130 Start Date: 02/22/17 Status: Ordered [...] Status: Ordered ParaGard intrauteral device See Instructions, trains dispatcher supervisor Paragard and bring to your post- appointment for insertion, # 1 each, 0 Refills, Maintenance, 04/22/17 14:04:19, trains dispatcher supervisor Paragard and bring to your post- appointment for insertion Start Date: 04/22/17 Status: Ordered sulindac 200 mg oral tablet 1 tablet = 200 mg, By Mouth, 2 times a day, PRN Pain , Moderate, with food or milk, # 20 tablet, 0 Refills, Maintenance, 07/24/19 19:06:00 EDT, Tablet, [facility]/pharmacy #1130, 148, cm, 07/24/19 18:18:00 EDT, Height, [...]
--- OUTSIDE RECORDS SUMMARY | 2023-06-13 23:42 | XMS_ITS | Continuity of Care Document ---
Author Name Unknown Organization [facility] Address [address] [place] [address]- Care Team Providers Care Harness And Bag Inspector Name Role Phone Benson SCHNEIDER, Zenaida Covarrubias Primary Care Physic alma [facility] Date[facility]s): 03/12/23 - 04/14/[address] [address]- Attending Physician: Not on Staff, Attending MD [...] 16:12:00 EDT, Capsule, Community, A [facility] Rx #[id number], Partial fill upon patient request if the prescription is for a schedul... Start Date: 02/13/23 Status: Ordered docusate sodium 100 mg oral capsule 1 capsule = 100 mg, By Mouth, 2 times a day, PRN as needed for constipation, # 60 capsule, 0 Refills, Maintenance, 02/14/23 12:25:00 EDT, Capsule, Community, A [facility] Rx #[id number], Partial fill upon patient request if the prescription is for a schedul... Start Date: 02/14/23 Status: Ordered sertraline 50 mg oral tablet 1 tablet = 50 mg, By Mouth, Daily, # 90 tablet, 0 Refills, Maintenance, 12/20/22 15:49:00 EDT, Tablet, Community, A [facility] Rx #[id number], Partial fill upon patient request if the [...] Name: Benson SCHNEIDER, Zenaida Covarrubias Position: S TAXATION CONSULTANT MD Member Role: PCP Address: Address: [address] [address]- Care Team Related Persons Name: BERNARDA CREWS Address: [address] Address: [address] Name: CARMEN PARDO Address: [address] [place] [address] Name: MAK DARDEN Address: [place] [address]
--- OUTSIDE RECORDS SUMMARY | 2023-06-13 23:42 | XMS_ITS | Continuity of Care Document ---
Author Name Unknown Organization [facility] Address [address] [place] [address]- Care Team Providers Care Incident Response Analyst Name Role Phone Benson SCHNEIDER, Zenaida Covarrubias Primary Care Physic alma [facility] Date(s): 02/08/23 - 03/13/[address] [address] Attending Physician: Denzel Aguilar MD Admitting Physician: Denzel Aguilar MD Referring Physician: Tammy Morel DO Allergies, Adverse [...] 16:12:00 EDT, Capsule, Community, A [facility] Rx #[id number], Partial fill upon patient request if the prescription is for a schedul... Start Date: 02/13/23 Status: Ordered docusate sodium 100 mg oral capsule 1 capsule = 100 mg, By Mouth, 2 times a day, PRN as needed for constipation, # 60 capsule, 0 Refills, Maintenance, 02/14/23 12:25:00 EDT, Capsule, Community, A [facility] Rx #[id number], Partial fill upon patient request if the prescription is for a schedul... Start Date: 02/14/23 Status: Ordered sertraline 50 mg oral tablet 1 tablet = 50 mg, By Mouth, Daily, # 90 tablet, 0 Refills, Maintenance, 12/20/22 15:49:00 EDT, Tablet, Community, A [facility] Rx #[id number], Partial fill upon patient request if the [...] Personnel Name: Benson SCHNEIDER, Zenaida Covarrubias Position: [facility] CALENDER OPERATOR MD Member Role: PCP Address: Address: [address] [address]- Care Team Related Persons Name: BERNARDA CREWS Address: [address] Address: [address] Name: CARMEN PARDO Address: home [address] [place] [address] Name: MAK DARDEN Address: [place] [address]
--- OUTSIDE RECORDS SUMMARY | 2023-06-13 23:42 | XMS_ITS | Continuity of Care Document ---
Author Name Unknown Organization [facility] Address [address] [place] [address]- Care Team Providers Care Outside Cutter Hand Name Role Phone Benson SCHNEIDER, Zenaida Covarrubias Primary Care Physic alma [facility] Date(s): 12/19/22 - 01/18/[address] [address]- Allergies, Adverse Reactions, Alerts No Known Allergies [...] Maintenance, 12/20/22 15:49:00 EDT, Tablet, Community, A [facility] Rx #[id number], Partial fill upon patient request if the [...] Personnel Name: Benson SCHNEIDER, Zenaida Covarrubias Position: [facility] MANAGER HEART Member Role: PCP Address: Address: [address] [address]- Care Team Related Persons Name: CARMEN PARDO Address: [address] [place] [address] Name: MAK DARDEN Address: [address] [place] [address]
--- OUTSIDE RECORDS SUMMARY | 2023-06-13 23:42 | XMS_ITS | Continuity of Care Document ---
Author Name Unknown Organization [facility] Address [address] [place] [address]- Care Team Providers Care Surgical Technician Name Role Phone Zenaida Knowles MD Primary Care Physician [facility] Date(s): 06/15/22 - 07/15/[address] [address]- Allergies, Adverse Reactions, Alerts No Known Allergies [...] Refills, Maintenance, 07/13/22 16:21:00 EST, DIS Tablet, [facility], [facility] Rx #[id number], Partial fill upon patient request if the [...] female Confirmed Active Levator spasm Confirmed Active Social History Social History Type Response Smoking Status Never (less than 100 in lifetime) entered on: 07/13/22 Sex Female Patient Care team information Care Team Personnel Name: Benson SCHNEIDER, Zenaida Bashir Position: [facility] AUTOMATIC GLOVE FORMER MD Member Role: PCP Address: Address: [address] [place] [address]- Care Team Related Persons Name: CARMEN PARDO Address: home [address] [place] [address] Name: MAK DARDEN Address: home [address] [place] [address]
--- OUTSIDE RECORDS SUMMARY | 2023-06-13 23:42 | XMS_ITS | Continuity of Care Document ---
Author Name Unknown Organization [facility] ion Address [address] [place] [address]- Care Team Providers Care Kelly Machine Operator Name Role Phone Zenaida Knowles MD Primary Care Physician [phone] Encounter [facility] [id number] Date(s): 06/10/20 - 07/16/[address] [address] Referring Physician: Zenaida Knowles MD Allergies, Adverse [...] constipation, 02/22/17 12:44:13, Route to Pharmacy Electronically, [id number], [facility]/pharmacy #1130 Start Date: 02/22/17 Status: Ordered docusate [...] Status: Ordered ParaGard intrauteral device See Instructions, learning support resource room teacher Paragard and bring to your post- appointment for insertion, # 1 each, 0 Refills, Maintenance, 04/22/17 14:04:19, learning support resource room teacher Paragard and bring to your post- appointment [...]
--- OUTSIDE RECORDS SUMMARY | 2023-06-13 23:42 | XMS_ITS | Continuity of Care Document ---
Author Name Unknown Organization [facility] Address [address] [place] [address]- Care Team Providers Care Maternity Floor Supervisor Name Role Phone Benson SCHNEIDER, Zenaida Bashir Primary Care Physician [facility]s): 09/26/20 - 10/26/20 [facility] [address] [address]- Allergies, Adverse Reactions, Alerts Substance Reaction Severity [...] constipation, 02/22/17 12:44:13, Route to Pharmacy Electronically, [id number], [facility]/pharmacy #1130 Start Date: 02/22/17 Status: Ordered [...] Status: Ordered ParaGard intrauteral device See Instructions, railroad track repair supervisor Paragard and bring to your post- appointment for insertion, # 1 each, 0 Refills, Maintenance, 04/22/17 14:04:19, railroad track repair supervisor Paragard and bring to your post- appointment for insertion Start Date: 04/22/17 Status: Ordered sulindac 200 mg oral tablet 1 tablet = 200 mg, By Mouth, 2 times a day, PRN Pain , Moderate, with food or milk, # 20 tablet, 0 Refills, Maintenance, 07/24/19 19:06:00 EDT, Tablet, [facility]/pharmacy #1130, 148, cm, 07/24/19 18:18:00 EDT, [...]
--- OUTSIDE RECORDS SUMMARY | 2023-06-13 23:42 | XMS_ITS | Continuity of Care Document ---
Author Name Unknown Organization [facility] Address [address] [place] [address]- Care Team Providers Care Engineering Illustrator Name Role Phone Benson SCHNEIDER, Zenaida Covarrubias Primary Care Physic alma [facility] Date(s): 02/18/23 - 03/20/[address] [address]- Allergies, Adverse Reactions, Alerts No Known Allergies [...] 16:12:00 EDT, Capsule, Community, A [facility] Rx #[id number], Partial fill upon patient request if the prescription is for a schedul... Start Date: 02/13/23 Status: Ordered docusate sodium 100 mg oral capsule 1 capsule = 100 mg, By Mouth, 2 times a day, PRN as needed for constipation, # 60 capsule, 0 Refills, Maintenance, 02/14/23 12:25:00 EDT, Capsule, Community, A [facility] Rx #[id number], Partial fill upon patient request if the prescription is for a schedul... Start Date: 02/14/23 Status: Ordered sertraline 50 mg oral tablet 1 tablet = 50 mg, By Mouth, Daily, # 90 tablet, 0 Refills, Maintenance, 12/20/22 15:49:00 EDT, Tablet, Community, A [facility] Rx #[id number], Partial fill upon patient request if the [...] Name: Benson SCHNEIDER, Zenaida Covarrubias Position: S JUDGE MD Member Role: PCP Address: [facility] [address] [address]- Care Team Related Persons Name: BERNARDA CREWS Address: [address] Address: home [address] [place] [address] [place] Name: CARMEN PARDO Address: home [address] [place] [address] Name: MAK DARDEN Address: [place] [address]
--- OUTSIDE RECORDS SUMMARY | 2023-06-13 23:42 | XMS_ITS | Continuity of Care Document ---
Author Name Unknown Organization [facility] Address [address] [place] [address]- Care Team Providers Care Registered Public Health Nurse Name Role Phone Benson SCHNEIDER, Zenaida Bashir Primary Care Physician [phone] Encounter [facility] Date(s): 11/03/20 - 12/03/20 [facility] [address] [address] Attending Physician: Ariela Bailey Admitting Physician: AdmAriela pacheco Referring Physician: AdmtrAriela Allergies, Adverse Reactions, Alerts [...] constipation, 02/22/17 12:44:13, Route to Pharmacy Electronically, [id number], [facility]/pharmacy #1130 Start Date: 02/22/17 Status: Ordered docusate [...] Ordered ParaGard intrauteral device See Instructions, supervisor mainspring fabrication Paragard and bring to your post- appointment for insertion, # 1 each, 0 Refills, Maintenance, 04/22/17 14:04:19, supervisor mainspring fabrication Paragard and bring to your post- appointment [...]
--- OUTSIDE RECORDS SUMMARY | 2023-06-13 23:42 | XMS_ITS | Continuity of Care Document ---
Author Name Unknown Organization [facility] Address [address] [facility], 4t [place] [address]- Care Team Providers Care Assistant To The Ceo Name Role Phone Zenaida Knowles MD Primary Care Physician En[place] [facility] Date(s): 05/24/20 - 09/21/20 [facility] [address] 4th [place] [address]- Attending Physician: Zenaida Knowles MD Admitting Physician: [...] constipation, 02/22/17 12:44:13, Route to Pharmacy Electronically, [id number], [facility]/pharmacy #1130 Start Date: 02/22/17 Status: Ordered [...] Status: Ordered ParaGard intrauteral device See Instructions, aircraft engine mechanic supervisor Paragard and bring to your post- appointment for insertion, # 1 each, 0 Refills, Maintenance, 04/22/17 14:04:19, aircraft engine mechanic supervisor Paragard and bring to your post- [...]
[2023-06-13 23:43] VITALS: BP 110/60; PULSE 74; RESP 16; TEMP 36.8; O2SAT 98
--- OUTSIDE RECORDS SUMMARY | 2023-06-13 23:43 | XMS_ITS | Continuity of Care Document ---
Author Name Unknown Organization [facility] Address [address] [place] [address]- Care Team Providers Care Spray Worker Name Role Phone Zenaida Knowles MD Primary Care Physician [phone] [place] [facility] Date(s): 01/17/21 - 02/16/21 [facility] [address] [place], [place] [address] Attending Physician: Ariela Bailey Admitting [...] constipation, 02/22/17 12:44:13, Route to Pharmacy Electronically, [id number], [facility]/pharmacy #1130 Start Date: [...] Status: Ordered ParaGard intrauteral device See Instructions, instructional support assistant Paragard and bring to your post- appointment for insertion, # 1 each, 0 Refills, Maintenance, 04/22/17 14:04:19, instructional support assistant Paragard and bring to your post- appointment [...]
--- OUTSIDE RECORDS SUMMARY | 2023-06-13 23:43 | XMS_ITS | Continuity of Care Document ---
Author Name Unknown Organization [facility] Address [address] [place] [address]- Care Team Providers Care Sdet Name Role Phone Benson SCHNEIDER, Zenaida Covarrubias Primary Care Physic alma [facility] Date(s): 11/21/22 - 12/21/[address] [address]- Allergies, Adverse Reactions, Alerts No Known Allergies [...] vis 08/09/09 8Admin Note: vis 02/23/11 Medications metroNIDAZOLE 0.75% topical gel 1 application, Topically, Daily, use applicator to insert vaginally nightly, # 45 Gm, 0 Refills, Maintenance, 12/20/22 16:47:00 EDT, Gel, Community, A [facility] Rx #[id number], Partial fill upon patient request if the prescription is for a schedule II opio... Start Date: 12/20/22 Stop Date: 12/27/22 Status: Ordered sertraline 25 mg oral tablet 1 tablet = 25 mg, By Mouth, Daily, # 3 tablet, 0 Refills, Maintenance, 12/20/22 15:49:00 EDT, Tablet, Community, A [facility] Rx #[id number], Partial fill upon patient request if the prescription is for a schedule II opioid drug., 148, cm, 12/20/22 15:26:00... Start Date: 12/20/22 Stop Date: 12/23/22 Status: Ordered sertraline 50 mg oral tablet 1 tablet = 50 mg, By Mouth, Daily, # 90 tablet, 0 Refills, Maintenance, 12/20/22 15:49:00 EDT, Tablet, Community, A [facility] Rx #[id number], Partial fill upon patient request if the prescription is for aschedule II opioid drug., 148, cm, 12/20/22 15:26:0... Start Date: 12/20/22 Status: Ordered Venofer 20 mg/mL intravenous solution = 100 mg, IV Infusion, Every week, # 10 mL, 1 Refills, Maintenance, 11/21/22 16:00:00 EDT, [facility], Partial fill upon patient request if [...] Personnel Name: Benson SCHNEIDER, Zenaida Covarrubias Position: [facility] CHEMICAL MACHINE TENDER MD Member Role: PCP Address: Address: [address] [place] [address] [address] [address]- Care Team Related Persons Name: CARMEN PARDO Address: home [address] [place] [address] Name: MAK DARDEN Address: home [address] [place] [address]
--- OUTSIDE RECORDS SUMMARY | 2023-06-13 23:43 | XMS_ITS | Continuity of Care Document ---
Author Name Unknown Organization [facility] Address [address] [place] [address]- Care Team Providers Care Elevator Adjuster Name Role Phone Not on Staff, PCP Primary Care Physician Unavail able Encounter [facility] Date(s): 09/14/19 - 10/14/19 [facility] [address] [place] [address]- [facility] Attending Physician: Ariela Bailey Admitting Physician: Ariela [...] constipation, 02/22/17 12:44:13, Route to Pharmacy Electronically, [id number], [facility]/pharmacy #[id number] Start Date: 02/22/17 [...] Status: Ordered ParaGard intrauteral device See Instructions, cnc supervisor Paragard and bring to your post- appointment for insertion, # 1 each, 0 Refills, Maintenance, 04/22/17 14:04:19, cnc supervisor Paragard and bring to your post- [...]
--- OUTSIDE RECORDS SUMMARY | 2023-06-13 23:43 | XMS_ITS | Continuity of Care Document ---
Author Name Unknown Organization [facility] Address [address], [address] [place] [address]- Care Team Providers Care Occupational Therapist'S Assistant Name Role Phone Zenaida Knowles MD Primary Care Physician [phone] Encounter [facility] Date(s): 07/27/22 - 08/26/22 [facility] [address] [place], [place] [address] Allergies, Adverse Reactions, Alerts No Known Allergies [...] 11:41:00 EDT, Route to Pharm[facility] Electronically, [id number], Partial fill upon patient request if t... Start Date: 07/27/22 Status: Ordered ferrous sulfate 325 mg oral tablet 1 tablet = 325 mg, By Mouth, Daily, # 60 tablet, 3 Refills, Maintenance, 07/26/22 21:24:00 EDT, Tablet, [facility], [id number], Partial fill upon patient request if the [...] Refills, Maintenance, 07/27/22 11:41:00 EDT, REC Powder, [facility], [facility] #[id number], Partial fill upon patient... Start Date: 07/27/22 Status: Ordered Multivitamins with Folic Acid 1 mg oral tablet 1 tablet, By Mouth, Daily, # 90 tablet, 3 Refills, Maintenance, 06/15/22 16:06:00 EST, Tablet, [facility]/pharmacy #[id number], Partial fill upon patient request if the prescription is for a schedule II opioid drug., 1 tablet By Mouth Daily, chandra Peter, 01/17/22 23:1... Start Date: 06/15/22 Status: Ordered prochlorperazine 25 mg rectal suppository 1 supp = 25 mg, Rectally, Once, PRN as needed for nausea/vomiting, # 10 supp, 0 Refills, Soft Stop,08/14/22 19:34:00 EDT, Suppository, [facility]/pharmacy #1130, Partial fill upon patient request if the prescription is for a schedule II opioid drug., 148, c... Start Date: 08/14/22 Status: Ordered Reglan 5 mg oral tablet 1 tablet = 5 mg, By Mouth, Every 6 hours, PRN Nausea & Vomiting, # 28 tablet, 1 Refills, Maintenance, 07/30/22 10:53:00 EDT, Tablet, [facility], [facility] Rx #[id number], Partial fill upon patient request if the [...] Personnel Name: Benson SCHNEIDER, Zenaida Bashir Position: [facility] LACE MACHINE OPERATOR MD Member Role: PCP Address: Address: [address] [place] [address]- Care Team Related Persons Name: CARMEN PARDO Address: home [address] [place] [id number] Name: MAK DARDNE Address: home [address] [place] [address]
--- OUTSIDE RECORDS SUMMARY | 2023-06-13 23:43 | XMS_ITS | Continuity of Care Document ---
Author Name Unknown Organization [facility] Address [address] [place] [address]- Care Team Providers Care Seat Trimmer Name Role Phone Not on Staff, PCP Primary Care Physician Unavail able Encounter [facility] Date(s): 07/24/19 - 08/03/19 [facility] [address] [place] [address]- [facility] Attending Physician: Ariela Bailey Admitting Physician: Ariela [...] constipation, 02/22/17 12:44:13, Route to Pharmacy Electronically, [id number], [facility]/pharmacy #[id number] Start Date: 02/22/17 Status: [...] Status: Ordered ParaGard intrauteral device See Instructions, carpentry supervisor Paragard and bring to your post- appointment for insertion, # 1 each, 0 Refills, Maintenance, 04/22/17 14:04:19, carpentry supervisor Paragard and bring to your post- [...]
--- OUTSIDE RECORDS SUMMARY | 2023-06-13 23:43 | XMS_ITS | Continuity of Care Document ---
Author Name Unknown Organization [facility] ter Address [address] [place] [address]- Care Team Providers Care Glass Washer Name Role Phone Benson SCHNEIDER, Zenaida Covarrubias Primary Care Physic alma Encounter [facility] Date(s): 01/02/23 - 01/03/[address] [id number] Discharge Disposition: A-D/C Home Attending Physician: Warren [...] 01/10/23 19:50:00 EDT, 12/27/22 19:50:00 EDT, Solution, [facility]/pharmacy #[id number], Partial fill upon patient request ifthe prescription is for a schedule II opioid drug.,... Start Date: 12/27/22 Stop Date: 01/10/23 Status: Ordered sertraline 50 mg oral tablet 1 tablet = 50 mg, By Mouth, Daily, # 90 tablet, 0 Refills, Maintenance, 12/20/22 15:49:00 EDT, Tablet, [facility], [facility] Rx #[id number], Partial fill upon patient request if the [...] Declines (vaginal after ) trial Confirmed Active Vital Signs Most recent to oldest [Reference Range]: 1 Weight 74.0 kg (01/02/23 11:01 PM) Oxygen Saturation [94-100 %] 99 % (01/02/23 11:01 PM) Pulse Rate [55-90 bpm] 76 bpm (01/02/23 11:01 PM) Blood Pressure [90-138/55-84 mm Hg] 108/ 60mm Hg (01/02/23 11:01 PM) Respiratory Rate [16-30 br/min] 18 br/mi n (01/02/23 11:01 PM) Temperature [96.8-100.4 DegF] 98.6 DegF (01/02/23 11:01 PM) Mode of Delivery (Oxygen) Room air (01/02/23 11:01 PM) Blood pressure sites Arm, right (01/02/23 11:01 PM) Temperature Route Oral (01/02/23 11:01 PM) Dry Weight 74.0 kg (01/02/23 11:01 PM) Weight Obtained Via Standing scale (01/02/23 11:01 PM) Dry Weight Obtained Via Standing scale (01/02/23 11:01 PM) Social History Social History Type Response Smoking Status Never (less than 100 in lifetime) entered on: 07/13/22 Sex Female Note * Berenice White RN: PERFORM Event Display: Discharge/Transfer Note Hospital Authored Date: [id number] Nursing Discharge Note Entered On: 01/03/2023 0:31 EDT Performed On: 01/03/2023 0:31 EDT by Berenice White RN Nursing Discharge Note 2 Discharge Time : 01/03/2023 0:13 EDT Discharge Level of Care at Discharge : Home/Halfway/Foster Care Patient Left Unit Via : Ambulatory Patient Accompanied Off Unit with : Other: self DC Instructions Provided & Signed by Pt : Yes Patient Understands D/C Instructions : Yes Verbalized Understanding of D/C Plan By : Patient Patient Instructions Discharge Signed : Yes Did Pt have Specialty Bed or Wound Vac : No Berenice White RN - 01/03/2023 0:31 EDT * Event Display: Discharge/Transfer Note Hospital Authored Date: [id number] * Berenice White RN: PERFORM Event Display: Patient Education/Instruction Authored Date: [id number] Inpatient Adult Discharge Instructions [address] [address] Name: CAYDEN STERLING : 1995 Visit: 01/02/2023 22:55:00 Current Date: 01/03/2023 00:01 Account: [id number] Inpatient Adult Discharge Instructions We would like [...] and their families. Surveys are administered by [employer]. ?? If further treatment with your primary care physician or another doctor is recommended, it is important for you to keep the appointment. Call your primary care physician or return to the Emergency Department immediately if your condition worsens, fails to improve, or new symptoms develop. If you need to find a doctor, you can call [facility] for a referral at [phone] or toll free at [phone]) or log in to [email or web address].. ?? You can view and manage your care through the patient portal or by using a health care jeff of your choosing. ish[employer]owl is a website that allows you to securely view your medical information including your hospital discharge summary, office visit summaries, medications and follow-up visits. You can also request appointments, renew medications, and request access to your medical information using a health care jeff of your choosing, or just ask a question. You can enroll at [email or web address] or register during your next office visit. You have been discharged from [facility], Patient Care Unit: WETU1. If you have any questions regarding these instructions after you leave, please call us and we will be happy to assist you. [facility] Your Care Team Attending Physician Warren Betancourt MD Tests Performed Below is a partial list of the tests performed during your hospitalization. You may have had other tests and procedures not included in this list. Please discuss all test results with your provider. Primary Care Provider Benson SCHNEIDER, Zenaida Covarrubias Advance Directive Health Care Proxy on File No Patient has a Designated Caregiver: No Discharge Vitals Temperature: 98.6 DegF Weight: 74 kg Pulse Rate: 76 bpm ?? Respiratory Rate: 18 br/min ?? Systolic Blood Pressure: 108 mm Hg ?? Diastolic Blood Pressure: 60 mm Hg ?? Oxygen Saturation: 99 % ?? Studies Pending All tests and labs ordered during this hospital stay have been completed unless listed below. Please discuss all pending results with your provider listed above in these instructions. ?? No incomplete studies found What to do next Instructions From Your Doctor Discharge Orders Scheduled Follow-Up Appointments Saturday 4:00 PM EDT ?? With: Carol Louis DO Where: [facility] [address] [address]- Status: Pending Saturday 4:20 PM EDT ?? With: Mariam Mcconnell DO Where: [address] [address]- Status: Pending Saturday 4:00 PM EDT ?? With: Bhavna Kaufman MD Where: [address] [address]- Status: Pending Saturday 11:30 AM EDT ?? Where: [facility] Status: Pending Saturday 4:00 PM EDT ?? With: Bhavna Kaufman MD Where: [address] [address]- Status: Pending Discharge Medications CAYDEN STERLING :1995 Visit Date:01/02/2023 Medications: Please continue your medications until treatment is completed or stopped by your provider. Medications not listed below should be discontinued. Discuss any questions related to medications with your provider. What How Much When Why Instructions Next Dose Unchanged Enoxaparin (Lovenox 40 mg/ 0.4 mL injectable solution) 0.4 Milliliter Subcutaneous Injection Daily Duration: 14 Days Unchanged Sertraline (sertraline 50 mg oral tablet) 1 tab(s) Oral Daily Unchanged ValACYclovir (valACYclovir 500 mg oral tablet) 1 tab(s) Oral Twice a day Duration: 5 week(s) start taking at 36 weeks gestation and continue through time of delivery drink plenty of fluids ?? for your , 36w start date is on ?? Test Results Below is a partial list of the most recent Laboratory test results done prior to this discharge. You may have had other tests and procedures not included in this list. Please discuss all test resultswith your provider. Allergies (NKA means No Known Allergies) NKA Problems Active Problems??(13) Anemia during ?? Anxiety?? Declines (vaginal after ) trial?? Depression?? GBS bacteriuria?? History of ?? HSV infection?? Obese class I? primary section 01/2011?? Request for sterilization?? Superficial thrombophlebitis in ?? Education Materials Below is the list of Educational Leaflet Providered with your Discharge Instructions. Premature Labor?? Kick Counts?? Common Discomforts During ?? Comfort Tips During ?? Valuables and Belongings I fully understand and agree that [facility] accepts no responsibility for all my personal [...] are strongly encouraged to quit. Please call [facility] Link at [phone] or [phone] ([phone]) or log in to [email or web address] for referrals to smoking cessation programs. ?? 201 Suicide & Crisis Lifeline is available 03/12 if you or someone you know needs to find a reason to keep living. By calling 255 you'll be connected to a skilled, trained counselor at a crisis center in your area. INPATIENT DISCHARGE INSTRUCTIONS SIGNATURE CAYDEN MIRANDA Location:[facility] Registration Date and Time:01/02/2023 22:55 EDT Primary Care Physician: Benson SCHNEIDER, Zenaida Covarrubias, Attending Physician: Warren Betancourt MD, I CAYDEN STERLING, have received the above patient education materials/instructions and have verbalized understanding. If ambulance or transport services are being used I further acknowledge being given a choice of service. ?? If you need to contact me, please call me at this number: . Patient/Web Designer Name: Patient/Web Designer Signature: Relationship to Patient: Witness Name/Signature: Date: * Berenice White RN: PERFORM Event Display: Patient Education Leaflets Authored Date: [id number] Premature Labor ?? [id number] Premature Labor Premature labor ( labor) is when symptoms of labor occur before 37 weeks of . (Thisis 3 weeks before your due date.) Premature labor can lead to premature delivery. This means givingbirth to your baby early. Babies need at least 37 weeks of for all the organs to develop normally. The earlier the delivery, the greater the risks to the baby. In most cases, the cause of premature labor is unknown. But certain factors may make the problem more likely. These include: ??? History of premature labor with other pregnancies ??? Smoking ??? Alcohol or substance abuse ??? Low prepregnancy weight or weight gain during ??? Short time period between pregnancies ??? Being with twins, triplets, or more ??? History of certain types of surgery on the cervix or uterus ??? Having a short cervix ??? Certain infections There are a number of other risk factors. Ask your healthcare provider to help you understand the risk factors specific to your case. Then find out what you can do to control or reduce them. Contractions are one of the main signs of premature labor. A contraction is different from cramping. It may feel painful and the belly (abdomen) may get hard. It can last from a few seconds to a few minutes. Some women may feel only a sense of pressure in the belly, thighs, rectum, or vagina. Some may feel only the hardening of the uterus without pain or pressure. Or there may be a constant pain in the lower back, which spreads forward toward the belly. Premature labor is often treated with medicines.??A hospital stay may be needed. If labor doesn't progress and you and your baby are both healthy, you may be discharged to continue care at home. Home care ??? Ask your provider any questions you have. Be certain you understand how to care for yourself at home. Also follow all recommendations given by your healthcare providers. ??? Learn the signs of premature labor.??Watch for these signs when you get home. ??? Limit or restrict activities as advised. This may include stopping certain physical activities and cutting back hours at work. ??? Don't do strenuous work as advised by your provider.??Ask family and friends for help with tasks and support at home, if needed. ??? Don???t smoke, drink alcohol, or use other harmful substances. ??? Take steps to reduce stress. ??? Report any unusual symptoms to your provider. ?? Follow-up care Follow up with your healthcare provider directed.??Weekly visits with your provider may be needed. ?? When to seek medical advice Call your healthcare provider right away if any of these occur: ??? Regular or frequent contractions, whether they're painful or not ??? Pressure in the pelvis ??? Pressure in the lower belly or mildcramping in your belly with or without diarrhea ??? Constant low, dull backache ??? Gush or slow leaking of water from your vagina ??? Change in vaginal discharge (watery, mucus, or bloody) ??? Any vaginal bleeding ??? Decreased movement of your baby ?? Last Reviewed Date: 2021 ?? 8459-1389 [employer]. All rights reserved. This information is not intended as a substitute for professional medical care. Always follow your healthcare professional's instructions. ?? * Berenice White RN: PERFORM Event Display: Patient Education Leaflets Authored Date: [id number] Kick Counts ?? [address] Kick Counts It???s normal to worry about your baby???s health. Generally, you will feel your baby start to movein your 2nd trimester at around 16 to 24 weeks. Getting to know the pattern of your baby's movements is one way to know what's normal for you and baby. This is called a kick count. Talk with your healthcare provider about kick counts and your specific situation. Always follow your provider's instructions. How to count kicks Here is just one way to do kick counts. Always follow your healthcare provider's instructions. Starting at 28 weeks, count your baby's movements daily. Time how long it takes you to feel 10 kicks, flutters, swishes, or rolls. Ideally, you want to feel at least 10 movements in 2 hours. You will likely feel 10 movements in less time than that. Here are tips for counting kicks: ??? Choose a time when the baby is active, such as after a meal.? Sit comfortably or lie on your side.? The first time the baby moves,??write down??the time.? Count each movement until the baby has moved?? 10??times. This can take from 20 minutes to 2??hours.? If you haven't felt 10 kicks by the end of the second hour, wait a few hours. Then try again. ??? Try to do it at the same time each day. ?? When to call your healthcare provider Follow your provider's instructions about when to call about your baby's movements. Don't hesitate to call if you have concerns. Call your healthcare provider?? right away??if: ??? You do a couple sets of kick counts during the day and your baby moves fewer than 10??times in??2??hours. ??? Your baby moves much less often than on the??days before. ??? You haven't felt your baby move all day. ?? Last Reviewed Date: 2022 ?? [id number] [employer]. All rights reserved. This information is not intended as a substitute for professional medical care. Always follow your healthcare professional's instructions. ?? * Berenice White RN: PERFORM Event Display: Patient Education Leaflets Authored Date: [id number] Common Discomforts During ?? [id number] Common Discomforts During Symptoms of discomfort due to vary from person to person. Below are some common discomforts. But each [id number] may have different symptoms or none at all: ??? Nausea and vomiting. Abouthalf of all people have nausea and sometimes vomiting in the first trimester. This is alsocalled morning sickness. That's because symptoms are most severe in the morning. Some people may have nausea and vomiting throughout the .??Morning sickness may be due to the changes in hormone levels during . Morning sickness seems to be??made worse??by stress, traveling, and certain foods, like spicy or fatty foods. Eating small meals several times a day may help lessen the symptoms. A diet high in protein and complex carbohydrates (like whole-wheat bread, pasta, bananas, and green, leafy vegetables) may also help reduce the severity of the nausea. If vomiting is severe, causing you to lose fluids and weight, it may??be a sign of??a condition called hyperemesis gravidarum. Hyperemesis can lead to dehydration and may need a hospital stay for intravenous fluids and nutrition. Call your healthcare provider or fixed capital clerk if you are having constant or severe nausea and vomiting. ??? Fatigue. As the body works overtime to provide a nourishing environment for the fetus, it is no wonder a person often feels tired. In the first trimester, their blood volume and other fluids increase as their body adjusts to the . Sometimes anemia is the underlying cause of the fatigue. Anemia is a drop in the ability of red blood cells to carry oxygen. It is often due to low iron levels. A simple blood test done at a visit will check for anemia. ??? Hemorrhoids. Hemorrhoids are common in late . That's because of the increased pressure on the rectum and perineum, the increased blood volume, and the increased likelihood of becoming constipated as the progresses. Preventing constipation and straining may help to prevent hemorrhoids. Always check with your healthcare provider or fixed capital clerk before using any medicine to treat this condition.??? Varicose veins. Varicose veins???swollen, purple veins???are common in the legs and around the vaginal opening during late . In most cases, varicose veins are caused by the increased pressure on the legs and the pelvic veins. It is also caused by the increased blood volume. ??? Heartburn and indigestion. Heartburn and indigestion is caused by pressure on the intestines and stomach (which, in turn, pushes stomach contents back up into the esophagus). It can be prevented or reduced by eating smaller meals throughout the day and by not lying down shortly after eating. ??? Bleeding gums. Gums may become more spongy as blood flow increases during . This causes them to bleedeasily. A person should continue to take care of her teeth and gums and go to the dentist for regular checkups. This symptom usually disappears after . ??? Pica. Pica is a rare craving to eat substances other than food, like dirt, ming, or coal. The craving may be a sign of a nutritional deficiency. ??? Swelling or fluid retention. Mild swelling is common during . But se emeka swelling that??lasts may??be a sign of??preeclampsia (abnormal condition marked by high blood pressure). Lying on the left side, elevating the legs, and wearing support hose and comfortable shoes may help to relieve the swelling. Be sure to notify your??healthcare provider??or fixed capital clerk about sudden swelling, especially in the hands or face, or rapid weight gain. ??? Skin changes. Because of changes in hormone levels, including hormones that stimulate pigmentation of the skin, brown, blotchypatches may??happen on the face, forehead, or cheeks. This is often called the mask of , or chloasma. It often disappears soon after delivery. Using sunscreen when outside can reduce the amount of darkening that happens.?? Pigmentation may also increase in the skin surrounding the nipples,called the areola. A dark line??also often appears down the middle of the stomach. Freckles may darken, and moles may grow. ??? Stretch davila. Pinkish stretch davila may appear on the stomach, breasts, thighs, or buttocks. Stretch davila are generally caused by a rapid increase in weight. The davila us ually fade after . ??? Yeast infections. Due to hormone changes and increased vaginal discharge, also called leukorrhea, a person is more prone to yeast infections. Yeast infectionscause a thick, whitish discharge from the vagina and itching. Yeast infections are highly treatable. Always talk with your healthcare provider or fixed capital clerk before taking any medicine for this condition.? Congested or bloody nose. During , the lining of the respiratory tract receives more blood, often making it more congested. This congestion can also cause stuffiness in the nose or nosebleeds. Small blood vessels in the nose are also easily damaged due to the increased blood volume, causing nosebleeds. ??? Constipation. Increased pressure from the on the rectum and intestines can interfere with digestion and bowel movements. Hormone changes may also slow down the food being processed by the body. Increasing fluids, exercising regularly, and increasing the fiber in your diet are some of the ways to prevent constipation. Always check with your healthcare provider or fixed capital clerk before taking any medicine for this condition.? Backache. As a person's weight increases, their balance changes. Their center of gravity is pulled forward,??straining the back. Pelvic joints that begin to loosen in preparation for childbirth also contribute to this back strain. Correct posture and correct lifting methods throughout the can help reduce the strain on the back.??? Dizziness. Dizziness during is a common symptom. It may be caused by: o Low blood pressure due to the uterus compressing major arteries o Low blood sugar o Low iron o Quickly moving from a sitting position to a standing position o Dehydration To prevent injury from falling during episodes of dizziness, a person should stand up slowly and hold on to the mesa and other stable structures for support and balance. ??? Headaches. Hormonal changes may be the cause of headaches during , especially during the first trimester. Rest, correct nutrition, and adequate fluidintake may help??ease headache symptoms. Always talk with your healthcare provider or fixed capital clerk??before taking any medicine for this condition. If you have a severe headache or a headache that does notgo away, call your healthcare provider. It may be a sign of preeclampsia.?? Last Reviewed Date: 2022 ?? [id number] [employer]. All rights reserved. This information is not intended as a substitute for professional medical care. Always follow your healthcare professional's instructions. ?? Patient Care team information Care Team Personnel Name: Benson SCHNEIDER, Zenaida Covarrubias Position: S DENTAL HYGIENE PROFESSOR MD Member Role: PCP Address: Address: [address] [address]- Care Team Related Persons Name: CARMEN PARDO Address: home [address] [place] [address] Name: MAK DARDEN Address: [place] [address]
--- OUTSIDE RECORDS SUMMARY | 2023-06-13 23:43 | XMS_ITS | Continuity of Care Document ---
Author Name Unknown Organization [facility] Address [address] [place] [address]- Care Team Providers Care C Unix Developer Name Role Phone Benson SCHNEIDER, Zenaida Covarrubias Primary Care Physic alma Encounter [facility] Date(s): 11/20/22 - 01/31/23 [facility] [address] [address]- Attending Physician: Not on Staff, Attending MD [...] 15:49:00 EDT, Tablet, Community, A [facility] Rx #[id number], Partial fill upon patient request if the prescription is for aschedule II opioid drug., 148, cm, 12/20/22 15:26:0... Start Date: 12/20/22 Status: Ordered Unisom 25 mg oral tablet 1 tablet = 25 mg, By Mouth, Daily at bedtime, PRN for sleep, # 32 tablet, 0 Refills, Acute 02/28/2315:57:00 EDT, 01/29/23 15:57:00 EDT, Tablet, Community, A [facility] Rx #[id number], Partial fill upon patient request if the [...] Name: Benson SCHNEIDER, Zenaida Covarrubias Position: S MAIN GALLEY SCULLION MD Member Role: PCP Address: Address: [address] [address]- Care Team Related Persons Name: CARMEN PARDO Address: home [address] [place] [address] Name: MAK DARDEN Address: [place] [address]
--- OUTSIDE RECORDS SUMMARY | 2023-06-13 23:43 | XMS_ITS | Continuity of Care Document ---
Author Name Unknown Organization [facility] Address [address] [place] [address]- Care Team Providers Care Construction Specialist Name Role Phone Benson SCHNEIDER, Zenaida Covarrubias Primary Care Physic alma Encounter [facility] Date(s): 01/01/23 - 01/31/23 [facility] [address] [address]- Allergies, Adverse Reactions, Alerts No Known Allergies [...] 15:49:00 EDT, Tablet, Community, A [facility] Rx #[id number], Partial fill upon patient request if the prescription is for aschedule II opioid drug., 148, cm, 12/20/22 15:26:0... Start Date: 12/20/22 Status: Ordered Unisom 25 mg oral tablet 1 tablet = 25 mg, By Mouth, Daily at bedtime, PRN for sleep, # 32 tablet, 0 Refills, Acute 02/28/2315:57:00 EDT, 01/29/23 15:57:00 EDT, Tablet, Community, A [facility] Rx #[id number], Partial fill upon patient request if the [...] Name: Benson SCHNEIDER, Zenaida Covarrubias Position: S SECTION BEAMER MD Member Role: PCP Address: Address: [address] [address] Care Team Related Persons Name: CARMEN PARDO Address: [place] [address] Name: MAK DARDEN Address: [place] [address]
--- OUTSIDE RECORDS SUMMARY | 2023-06-13 23:43 | XMS_ITS | Continuity of Care Document ---
Author Name Unknown Organization [facility] ter Address [address] [place] [address]- Care Team Providers Care Inspector Coated Fabrics Name Role Phone Zenaida Knowles MD Primary Care Physician [phone] Encounter [facility] Date(s): 06/13/20 - 06/13/[address] [address]- Encounter Diagnosis Viral syndrome(Final) - 06/13/20 Discharge Disposition: A-D/C Home Attending Physician: Taras Watkins MD Admitting Physician: Taras Watkins MD Referring Physician: Not on Staff, Referring MD Allergies, Adverse Reactions, Alerts Substance Reaction [...] constipation, 02/22/17 12:44:13, Route to Pharmacy Electronically, [id number], [facility]/pharmacy #[id number] Start Date: 02/22/17 Status: Ordered docusate [...] Status: Ordered ParaGard intrauteral device See Instructions, nurse supervisor Paragard and bring to your post- appointment for insertion, # 1 each, 0 Refills, Maintenance, 04/22/17 14:04:19, nurse supervisor Paragard and bring to your post- [...] in female(Confirmed) Active Levator spasm(Confirmed) Active Results Radiology Reports * Exam Date Time Procedure Performing Provider Status 06/13/20 5:31 PM Chest 2 Views Frontal and Lat Lydia Resendiz; Chloe (Verified) Notes: (Chest 2 Views Frontal and Lat) Reason For Exam: Chest Pain;Other: RESULT: Chest 2 Views Frontal and Lat Chest 2 Views Frontal and Lat Hx of Present Illness: Pt. comes in for SOB x 3 days. States that she has a cough and has been having left anterior chest pain. Now, the chest pain is across her chest and is there constantly. worse with breathing. no fevers or chills. no n v. Diarrhea and Epigastric pain; Reason: Other:; Chest Pain; Clinical Question(s): Other: COMPARISON: 04/02/2015 FINDINGS: LINES AND TUBES: None. LUNGS AND PLEURA: Clear lungs. Normal pulmonary vascularity. No pleural effusion. No pneumothorax. HEART, MEDIASTINUM AND SANTANA: Heart is normal in size. Normal upper mediastinal and hilar contour. BONES AND SOFT TISSUES: No acute abnormality. IMPRESSION: No acute abnormality. WSN: [id number] Ordering Physician: Charles Contreras Dictated By: Adam Henning MD Dictated Date/Time: 06/13/20 5:35 pm Reviewed By: Adam Henning MD Signed By: Adam Henning MD Signed Date/Time: 06/13/20 5:35 pm Transcribed By: JAIME Transcribed Date/Time: 06/13/20 5:34 pm Vital Signs Most recent to oldest [Reference Range]: 1 2 3 Oxygen Saturation [94-100 %] 100 % (06/13/20 8:07 PM) 100 % (06/13/20 6:51 PM) 100 % (06/13/20 2:49 PM) Pulse Rate [55-90 bpm] 79 bpm (06/13/20 8:07 PM) 75 bpm (06/13/20 6:51 PM) 99 bpm *H* (06/13/20 2:49 PM) Blood Pressure [90-138/55-84 mm Hg] 122/82mm Hg (06/13/20 8:07 PM) 105/58mm Hg (06/13/20 6:51 PM) 120/70mm Hg (06/13/20 3:37 PM) Respiratory Rate [16-30 br/min] 18 br/min (06/13/20 8:07 PM) 18 br/min (06/13/20 6:51 PM) 16 br/min (06/13/20 3:37 PM) Temperature [96.8-100.4 DegF] 100.0 DegF (06/13/20 8:07 PM) 98.8 DegF (06/13/20 6:51 PM) 98.6 DegF (06/13/20 3:37 PM) Mode of Delivery (Oxygen) Room air (06/13/20 8:07 PM) Room air (06/13/20 6:51 PM) Room air (06/13/20 2:49 PM) Blood pressure sites Arm, right (06/13/20 8:07 PM) Arm, left (2/1/21 3:37 PM) Temperature Route Oral (06/13/20 8:07 PM) Oral (06/13/20 6:51 PM) Oral (06/13/20 3:37 PM) Social History Social History Type Response Smoking Status Never (less than 100 in lifetime) entered on: 04/11/20 Sex Female
--- OUTSIDE RECORDS SUMMARY | 2023-06-13 23:43 | XMS_ITS | Continuity of Care Document ---
Author Name Unknown Organization [facility] Address [address] [place] [address]- Care Team Providers Care Cyber Reverse Engineer Name Role Phone Benson SCHNEIDER, Zenaida Covarrubias Primary Care Physic alma Encounter [facility] Date(s): 03/21/23 - 04/20/[address] [address]- Allergies, Adverse Reactions, Alerts No Known Allergies [...] 16:12:00 EDT, Capsule, Community, A [facility] #[id number], Partial fill upon patient request if the prescription is for a schedul... Start Date: 02/13/23 Status: Ordered docusate sodium 100 mg oral capsule 1 capsule = 100 mg, By Mouth, 2 times a day, PRN as needed for constipation, # 60 capsule, 0 Refills, Maintenance, 02/14/23 12:25:00 EDT, Capsule, Community, A [facility] Rx #[id number], Partial fill upon patient request if the prescription is for a schedul... Start Date: 02/14/23 Status: Ordered metroNIDAZOLE 500 mg oral tablet 1 tablet = 500 mg, By Mouth, Every 12 hours, for 7 days, # 14 tablet, 0 Refills, Acute 04/25/23 17:11:00 EST, 04/18/23 17:11:00 EST, Tablet, Community, A [facility] #[id number], Partial fill upon patient request if the prescription is for a schedule II o... Start Date: 04/18/23 Stop Date: 04/25/23 Status: Ordered sertraline 50 mg oral tablet 1 tablet = 50 mg, By Mouth, Daily, # 90 tablet, 0 Refills, Maintenance, 12/20/22 15:49:00 EDT, Tablet, Community, A [facility] #[id number], Partial fill upon patient request if the [...] Zenaida Covarrubias Position: [facility] PROGRESSIVE ASSEMBLER AND FITTER MD Member Role: PCP Address: Address: [address] [place] [address] [place] [address]- Care Team Related Persons Name: BERNARDA CREWS Address: [address] Address: home [address] [place] [address] [place] Name: CARMEN PARDO Address: home [address] [place] [address] Name: MAK DARDEN Address: home [address] [place] [address]
--- OUTSIDE RECORDS SUMMARY | 2023-06-13 23:43 | XMS_ITS | Continuity of Care Document ---
Author Name Unknown Organization [facility] Address [address] [place] [id number]- Care Team Providers Care Sonar Watchstander Name Role Phone Benson SCHNEIDER, Zenaida Covarrubias Primary Care Physic alma Encounter [facility] Date(s): 02/14/23 - 04/11/[address] [facility] [address] [address] Attending Physician: Not on Staff, Attending MD [...] 16:12:00 EDT, Capsule, Community, A [facility] #[id number], Partial fill upon patient request if the prescription is for a schedul... Start Date: 02/13/23 Status: Ordered docusate sodium 100 mg oral capsule 1 capsule = 100 mg, By Mouth, 2 times a day, PRN as needed for constipation, # 60 capsule, 0 Refills, Maintenance, 02/14/23 12:25:00 EDT, Capsule, Community, A [facility] #[id number], Partial fill upon patient request if the prescription is for a schedul... Start Date: 02/14/23 Status: Ordered sertraline 50 mg oral tablet 1 tablet = 50 mg, By Mouth, Daily, # 90 tablet, 0 Refills, Maintenance, 12/20/22 15:49:00 EDT, Tablet, Community, A [facility] #[id number], Partial fill upon patient request if the [...] Name: Benson SCHNEIDER, Zenaida Covarrubias Position: S STAVE GRADER MD Member Role: PCP Address: Address: [address] [address]- Care Team Related Persons Name: BERNARDA CREWS Address: [address] Address: home [address] Name: CARMEN PARDO Address: [address] [place] [address] Name: MAK DARDEN Address: [place] [address]
--- OUTSIDE RECORDS SUMMARY | 2023-06-13 23:43 | XMS_ITS | Continuity of Care Document ---
Author Name Unknown Organization [facility] ter Address [address] [place] [id number] Care Team Providers Care Concierge Receptionist Name Role Phone Benson SCHNEIDER, Zenaida Covarrubias Primary Care Physic alma Encounter [facility] Date(s): 11/16/22 - 11/17/[address] [id number] Discharge Disposition: A-D/C Home Attending Physician: Lina Salazar MD Admitting Physician: Lina Salazar MD Referring Physician: Lina Salazar MD Allergies, Adverse Reactions, Alerts No Known Allergies Immunizations Given and Recorded Vaccine Date Status Refusal Reason SARS-CoV-2 (COVID-19) mRNA-1273 vaccine 10/11/21 R ecorded [...] 11:41:00 EDT, [id number], Partial fill upon patient request if t... Start Date: 07/27/22 Status: Ordered famotidine 10 mg oral tablet 1 tablet = 10 mg, By Mouth, 2 times a day, # 60 tablet, 4 Refills, Maintenance, 09/05/22 17:48:00 EDT, Tablet, [facility]/pharmacy #[id number], Partial fill upon patient request if the prescription is for a schedule II opioid drug., 148, cm, 09/05/22 17:28:00 EDT,... Start Date: 09/05/22 Status: Ordered ferrous sulfate 325 mg oral tablet 1 tablet = 325 mg, By Mouth, Daily, # 60 tablet, 3 Refills, Maintenance, 07/26/22 21:24:00 EDT, Tablet, [facility] #[id number], Partial fill upon patient request if the [...] Maintenance, 07/27/22 11:41:00 EDT, REC Powder, [facility] #[id number], Partial fill upon patient... Start Date: 07/27/22 Status: Ordered Multivitamins with Folic Acid 1 mg oral tablet 1 tablet, By Mouth, Daily, # 90 tablet, 3 Refills, Maintenance, 06/15/22 16:06:00 EST, Tablet, [facility]/pharmacy #[id number], Partial fill upon patient request if the prescription is for a schedule II opioid drug., 1 tablet By Mouth Daily, 148, cm, 01/17/22 23:1... Start Date: 06/15/22 Status: Ordered prochlorperazine 25 mg rectal suppository 1 supp = 25 mg, Rectally, Once, PRN as needed for nausea/vomiting, # 10 supp, 0 Refills, Soft Stop,08/14/22 19:34:00 EDT, Suppository, [facility]/pharmacy #[id number], Partial fill upon patient request if the prescription is for a schedule II opioid drug., 148, c... Start Date: 08/14/22 Status: Ordered Reglan 5 mg oral tablet 1 tablet = 5 mg, By Mouth, Every 6 hours, PRN Nausea & Vomiting, # 28 tablet, 1 Refills, Maintenance, 07/30/22 10:53:00 EDT, Tablet, Community, [facility] Rx #[id number], Partial fill upon patient request if the prescription is for a schedule II opioid drTete. Start Date: 07/30/22 Status: Ordered Slow Fe (as elemental iron) 45 mg oral tablet, extended release 1 tablet = 45 mg, By Mouth, Daily, # 30 tablet, 6 Refills, Maintenance, 09/14/22 9:08:00 EDT, ER Tablet, [facility], [facility] Rx #[id number], Partial fill upon patient request if the prescription is fora schedule II opioid drug., 148, cm, 09/05/22 17:28... Start Date: 09/14/22 Status: Ordered Problem List Condition Confirmation Course Effective Dates Status H ealth Status Informant Anemia during Confirmed Active Anxiety Confirmed Active GBS bacteriuria Confirmed Active Constipation during Confirmed Active COVID-19 Confirmed 03/2022 Active Depression Confirmed Active History of Confirmed Active HSV infection Confirmed Active Obese class I Confirmed Active Request for sterilization Confirmed Active Declines (vaginal after ) trial Confirmed Active Vital Signs Most recent to oldest [Reference Range]: 1 Weight 72.6 kg (11/16/22 9:35 PM) Oxygen Saturation [94-100 %] 100 % (11/16/22 9:35 PM) Pulse Rate [55-90 bpm] 73 bpm (11/16/22 9:35 PM) Blood Pressure [90-138/55-84 mm Hg] 105/ 56mm Hg (11/16/22 9:35 PM) Respiratory Rate [16-30 br/min] 18 br/mi n (11/16/22 9:35 PM) Temperature [96.8-100.4 DegF] 98.2 DegF (11/16/22 9:35 PM) Mode of Delivery (Oxygen) Room air (11/16/22 9:35 PM) Blood pressure sites Arm, right (11/16/22 9:35 PM) Temperature Route Oral (11/16/22 9:35 PM) Dry Weight 72.6 kg (11/16/22 9:35 PM) Weight Obtained Via Standing scale (11/16/22 9:35 PM) Dry Weight Obtained Via Standing scale (11/16/22 9:35 PM) Social History Social History Type Response Smoking Status Never (less than 100 in lifetime) entered on: 07/13/22 Sex Female History and physical note * Tammy Morel DO: PERFORM Event Display: History and Physical Hospital Authored Date: [id number] Patient: ??EMILIA STERLING ? Age:??27 Years?Sex:??Female?:??1995?? OB Reason for Admission OB Reason for Admission?? No qualifying data available. LMP/EGA/DUNIA Gestational Age (EGA) and DUNIA? * Note: EGA calculated as of 11/17/2022 ?? DUNIA:??02/18/2023?EGA*:??26 weeks 5 days ? History?(2,0,2,2)?Method:??Ultrasound??(07/30/2022) History of Present Illness Emilia is a 27-year-old -0-2-2 at 26 weeks and 5 days gestation who presents to??[facility] with dizziness.?? She states that she has been dizzy the entire ??and feels lightheaded??and fatigued.?? She is drinking 3 large water bottles a day??and has been eating regularly.?? She reports blurry vision. ??She denies any??vaginal bleeding,??cramping, or decreased movement.?? She denies any urinary symptoms.?? She reports??thick yellow vaginal discharge??for the past 2 to 3 days as well as vaginal itching.?? Patient states she has known iron deficient anemia but cannot tolerate oral iron.?? She states that the iron made her constipated previously. Review of Systems As per HPI, the remainder or the ROS is as follows: Constitutional:??No weight loss, fever, chills, weakness or fatigue. HEENT:??No visual loss, blurred vision, double vision. No hearing loss, sneezing, congestion, runnynose or sore throat. Skin:??No rash or itching. Cardiovascular:??No chest pain, chest pressure or chest discomfort. No palpitations. Respiratory:??No shortness of breath, cough or sputum production. Gastrointestinal:??No anorexia, nausea/vomiting, constipation/diarrhea. No abdominal pain. Genitourinary:??No burning micturition. No urinary frequency or incontinence. Gynecologic: No vaginal bleeding, vaginal discharge, or vaginal itching. Neurologic:??No headache, dizziness, syncope. Musculoskeletal:??No muscle pain, back pain, joint pain or stiffness. Psychiatric:??No depression or anxiety. Physical Exam Vitals & Measurements T:??98.2?F?? HR:??73??(Peripheral)?? RR:??18?? BP:??105/56?? SpO2:??100%?? WT:??72.6??kg?? Constitutional: Pleasant, alert, cooperative, no acute distress. Lungs: Unlabored breathing. Clear to auscultation bilaterally with full symmetric breath sounds,??no crackles, no wheezing,??or rhonchi.? Cardiovascular: S1/S2, Regular rate and rhythm, no murmurs.? Abdomen/GI: Gravid, firm, non-tender Hris Analyst: Normal appearing external genitalia, no gross LOF or VB. No lesions. On speculum exam, thick white discharge is seen. Cervix appears closed. Extremities: No edema present bilaterally, no calf erythema Skin: No rash or jaundice. Neurological/Psychiatric: Appearance appropriate, mood and affect stable. ?? FHR Tracing: Baseline- 130 bpm Variability- moderate Accelerations- present Decelerations- absent Overall Impression- reactive NST appropriate for gestational age. ?? PIERO Prep: positive for pseudohyphae and yeast buds Wet Prep: negative for clue cells and trichomonads Assessment/Plan Assessment:??Patient is a 27 year old -0-2-2 at 26 weeks and 5 days gestation [facility]. Her??vitals are normal with no orthostatic hypotension noted.??She has no obstetric complaints today.?? status is reassuring with a reactive NST. Due to her vaginal discharge,??and infectious work-up was performed and positive for yeast infection.??The patient received Diflucan 150 mg and??[facility] for treatment.??A CBC was collected given her known history of anemia and symptoms of anemia and significant for H/H of 9.2/30. Dizziness likely related to anemia given symptoms have been ongoing throughout . Her Hgb is not low enough to require transfusion today and she is hemodynamically stable.??Iron studies collected and pending. Patient states she absolutely cannot tolerate po iron. Plan to schedule IV iron infusions outpatient. She will follow up with [facility] on 11/20 for her next visit. ?? Anemia (D64.9):? -discharge home -iron studies pending -IV iron outpatient -follow up with [facility] on 11/20 ?? Dizziness (R42):? -secondary to anemia ?? Yeast -Diflucan 150 mg po given in [facility] ?? Patient seen and plan discussed with Dr. Salazar, attending physician. OB History History?(2,0,2,2)? # 1 ?Baby 1 ?Outcome Date:??01/29/2011?Outcome or Result:??, low transverse ?Gest Age:??41 weeks 2 days ? Outcome:??Live ? Sex:??Male?Wt:?2410 g ? Complications:??Meconium; severe variable and late decelerations ?Anesthesia Type:??Epidural ? Labor:??No ?Javier Labor:??12 hr ?Name of Father/Guardian of [place]:?Hospital:??[facility] ?? # 2 ?Baby 1 ?Outcome Date:??2014 ?Outcome or Result:??Therapeutic , surgical ?Gest Age:??-- ? Outcome:? Sex:??-- ?? # 3 ?Baby 1 ?Outcome Date:??04/17/2017?Outcome or Result:?Gest Age:??39 weeks 3 days ? Outcome:??Live ? Sex:??Male?Wt:?3724 g ?? # 4 ?Baby 1 ?Outcome Date:??2020 ?Outcome or Result:??Therapeutic , surgical ?Gest Age:??Unknown ? Outcome:? Sex:??-- Labs Labs Labs & Tests Antibody Screen: Negative (07/25/22) Chlamydia Trachomatis Amplified Probe: NEGATIVE (09/05/22) Hct:??30 %??Low (11/17/22) Hepatitis B Surface Antigen: NEGATIVE (07/25/22) Hepatitis C Ab: NEGATIVE (07/25/22) Hgb:??9.2 Gm/dL??Low (11/17/22) HIV 4th Generation Ab-Ag Result: NEGATIVE (07/25/22) RPR Titer Result: NOT INDICATED (07/25/22) Rubella IgG Ab: POSITIVE (07/25/22) Syphilis Screen by MIGUEL ANGEL: NEGATIVE (07/25/22) Urine Culture: Urine Culture (09/05/22) Problem List Active Active Problem List : (Freetext) Anemia during : (Medical) Anxiety: (Medical) Constipation during : (Medical) COVID-19: (Medical) (03/26/22) Declines (vaginal after ) trial: (Medical) Depression: (Medical) GBS bacteriuria: (Medical) History of : (Medical) HSV infection: (Medical) Obese class I: (Medical) : (Obstetric) (05/05/22) Request for sterilization: (Medical) Procedure/Surgical History Abdominoplasty: 2020 primary section: 01/29/11 Home Medications Docusate: 100 mg = 1 capsule, By Mouth, 2 times a day, PRN (for constipation) Famotidine: 10 mg = 1 tablet, By Mouth, 2 times a day Ferrous Sulfate: 325 mg = 1 tablet, By Mouth, Daily Ferrous Sulfate: 45 mg = 1 tablet, By Mouth, Daily Metoclopramide: 5 mg = 1 tablet, By Mouth, Every 6 hours, PRN (Nausea & Vomiting) Multivitamin, : 1 tablet, By Mouth, Daily PROCHLORperazine: 25 mg = 1 supp, Rectally, Once, PRN (as needed for nausea/vomiting) Psyllium: 1.7 Gm, By Mouth, 3 times a day, PRN (as needed for constipation), dissolve in 8 oz of fluid; may use 1-3x/day as needed Allergies NKA Social History Alcohol Use: Never. Electronic Cigarette/Vaping Electronic Cigarette Use: Never. 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 Exercise Self assessment: Poor condition. Home/Environment Living situation: Home/Independent. Lives with: Children. DCF involvement: None. Nutrition/Health Diet: Regular. Sexual Sexually involved in last 6 months: Yes. Gender identity: Identifies as female. Self described orientation: Straight or heterosexual. Preferred pronoun: She/her. Substance Abuse Use: Never. Tobacco Use: Never (less than 100 in lifetime). Family History Mat. Grandfather: Cancer of colon Pat. Grandmother: Diabetes mellitus Plan No Data Found * Lina Salazar MD: PERFORM Event Display: History and Physical Hospital Authored Date: [id number] Attending Attestation:??I have seen and evaluated this patient. ??I have discussed the case and itsmanagement with the resident and agree with the findings and plan as documented in the resident???snote. Note * Tammy Robles RN: PERFORM Event Display: Discharge/Transfer Note Hospital Authored Date: [id number] Nursing Discharge Note Entered On: 11/17/2022 2:48 EDT Performed On: 11/17/2022 2:47 EDT by Tammy Robles RN Nursing Discharge Note 2 Discharge Time : 11/17/2022 2:36 EDT Discharge Level of Care at Discharge : Home/Detention/Foster Care Patient Left Unit Via : Ambulatory Patient Accompanied Off Unit with : Other: self DC Instructions Provided & Signed by Pt : Yes Patient Understands D/C Instructions : Yes Patient Instructions Discharge Signed : Yes Did Pt have Specialty Bed or Wound Vac : No Tammy Robles RN - 11/17/2022 2:47 EDT * Event Display: Discharge/Transfer Note Hospital Authored Date: [id number] * Tammy Robles RN: PERFORM Event Display: Patient Education/Instruction Authored Date: [id number] Inpatient Adult Discharge Instructions [address] [address] Name: EMILIA STERLING : 1995 Visit: 11/16/2022 19:57:00 Current Date: 11/17/2022 02:21 Account: [id number] Inpatient Adult Discharge Instructions We would like [...] and their families. Surveys are administered by [employer]. ?? If further treatment with your primary care physician or another doctor is recommended, it is important for you to keep the appointment. Call your primary care physician or return to the Emergency Department immediately if your condition worsens, fails to improve, or new symptoms develop. If you need to find a doctor, you can call [facility] for a referral at [phone] or toll free at [phone] or log in to [email or web address].. ?? You can view and manage your care through the patient portal or by using a health care jeff of your choosing. [employer] is a website that allows you to securely view your medical information including your hospital discharge summary, office visit summaries, medications and follow-up visits. You can also request appointments, renew medications, and request access to your medical information using a health care jeff of your choosing, or just ask a question. You can enroll at [email or web address] or register during your next office visit. You have been discharged from [facility], Patient Care Unit: [facility]. If you have any questions regarding these instructions after you leave, please call us and we will be happy to assist you. [facility] Your Care Team Attending Physician Lina Salazar MD Your Diagnosis Dizziness Tests Performed Below is a partial list of the tests performed during your hospitalization. You may have had other tests and procedures not included in this list. Please discuss all test results with your provider. CBC Primary Care Provider Zenaida Knowles MD Advance Directive Health Care Proxy on File No Discharge Vitals Temperature: 98.2 DegF Weight: 72.6 kg Pulse Rate: 73 bpm ?? Respiratory Rate: 18 br/min ?? Systolic Blood Pressure: 105 mm Hg ?? Diastolic Blood Pressure: 56 mm Hg ?? Oxygen Saturation: 100 % ?? Studies Pending All tests and labs ordered during this hospital stay have been completed unless listed below. Please discuss all pending results with your provider listed above in these instructions. ?? Ferritin Iron + Iron Binding Capacity What to do next Instructions From Your Doctor Discharge Orders Scheduled Follow-Up Appointments Saturday 2:40 PM EDT ?? With: Su Choudhary DO Where: [facility] [address] [place] [address]- Status: Pending You Need to Schedule the Following Appointments Follow Up with??[facility] [phone] Discharge Medications ASHEREMILIA :1995 Visit Date:11/16/2022 Medications: Please continue your medications until treatment is completed or stopped by your provider. Medications not listed below should be discontinued. Discuss any questions related to medications with your provider. What How Much When Why Instructions Next Dose Unchanged Docusate (Colace sodium 100 mg oral capsule) 1 capsule Oral Twice a day as needed for for constipation Constipation during Unchanged Famotidine (famotidine 10 mg oral tablet) 1 tab(s) Oral Twice a day Heartburn Unchanged Ferrous Sulfate (ferrous sulfate 325 mg oral tablet) 1 tab(s) Oral Daily Anemia during Unchanged Ferrous Sulfate (Slow Fe (as elemental iron) 45 mg oral tablet, extended release) 1 tab(s) Oral Daily Anemia Unchanged Metoclopramide (Reglan 5 mg oral tablet) 1 tab(s) Oral Every 6 hours as needed for Nausea & Vomiting Unchanged Multivitamin, ( Multivitamins with Folic Acid 1 mg oral tablet) 1 tab(s) Oral Daily Unchanged PROCHLORperazine (prochlorperazine 25 mg rectal suppository) 1 suppository(ies) Per rectum Once as needed for as needed for nausea/vomiting Unchanged Psyllium (Metamucil 3.4 gm/ 5.2 gm oral powder for reconstitution) 1.7 gram Oral 3 times a day as needed for as needed for constipation Constipation during dissolve in 8 oz of fluid; may use 1-3x/ day as needed ?? Test Results Below is a partial list of the most recent Laboratory test results done prior to this discharge. You may have had other tests and procedures not included in this list. Please discuss all test resultswith your provider. CBC (11/17/2022) ???WBC - 9.8 k/mm3???RBC - 3.90 m/mm3???Hgb - 9.2 Gm/dL???Hct - 30.0 %???MCV - 76.9 femtoliters???MCH - 23.6 pg???MCHC - 30.7 g/dL???Platelet Count - 220 k/mm3???RDW-SD - 41.9 femtoliters???MPV - 13.3 femtoliters???Nucleated RBC (Automated) - 0.0 #/100 WBC'S???Abs. NRBC - 0.0 k/mm3 Allergies (NKA means No Known Allergies) NKA Problems Active Problems??(13) Anemia during ?? Anxiety?? Constipation during ?? COVID-19?? Declines (vaginal after ) trial?? Depression?? GBS bacteriuria?? History of ?? HSV infection?? Obese class I? primary section 01/2011?? Request for sterilization?? Education Materials Below is the list of Educational Leaflet Providered with your Discharge Instructions. Anemia, Type Not Specified (Adult)?? Anemia?? Valuables and Belongings I fully understand and agree that [facility] accepts no responsibility for all my [...] are strongly encouraged to quit. Please call [facility] at [phone] or [phone] or log in to [email or web address] for referrals to smoking cessation programs. ?? 535 Suicide & Crisis Lifeline is available 03/12 if you or someone you know needs to find a reason to keep living. By calling 047 you'll be connected to a skilled, trained counselor at a crisis center in your area. INPATIENT DISCHARGE INSTRUCTIONS SIGNATURE SOLE ASHEREMILIA Location:[facility] Registration Date and Time:11/16/2022 19:57 EDT Primary Care Physician: Benson SCHNEIDER, Zenaida Covarrubias, Attending Physician: Lina Salazar MD, I EMILIA STERLING, have received the above patient education materials/instructions and have verbalized understanding. If ambulance or transport services are being used I further acknowledge being given a choice of service. ?? If you need to contact me, please call me at this number: . Patient/Public Relations Director Name: Patient/Public Relations Director Signature: Relationship to Patient: Witness Name/Signature: Date: * Tammy Robles RN: PERFORM, SIGN, VERIFY Event Display: Patient Education Handout Authored Date: [id number] * Tammy Robles RN: PERFORM Event Display: Patient Education Leaflets Authored Date: [id number] Anemia, Type Not Specified (Adult) ?? 140052ic Anemia, Type Not Specified (Adult) Red blood cells carry oxygen to the tissues of your body. Anemia is a condition in which you have too few red blood cells. You need iron to make red blood cells. The most common cause of anemia is not having enough iron. This may be because of: ??? Loss of blood. This can be caused by heavy menstrual periods. It can also be caused by bleedingfrom the stomach or intestines. ??? Major surgery or physical trauma ? Certain medicines or treatments, such as chemotherapy ??? Not??eating enough foods that contain iron. Other causes of anemia include certain vitamin deficiencies, chronic kidney disease, and other chronic illnesses. Anemia makes you feel tired and run down. When anemia becomes severe, your skin becomes pale. You may feel short of breath or have chest pain after physical activity. Other symptoms include: ??? Headaches ??? Chest pain or shortness of breath ??? Fast or irregular heartbeat ??? Pounding orwhooshing in your ears ??? Dizziness ??? Leg cramps with physical activity ??? Drowsiness Home care Follow these guidelines when caring for yourself at home: ??? Don???t overexert yourself. ??? Eat foods rich in iron, such as beef, poultry, fish, dark green leafy vegetables, legumes, and nuts. ??? Talk with your healthcare provider before traveling by air or to high altitudes. ?? Follow-up care Follow up with your healthcare provider, or as advised. You may need other blood tests to find out the exact cause of your anemia. If you had testing done today, it may take several days to get all of the results. You can follow up with your provider to get the results. ?? Call 911 Call 911 if any of the following occur: ??? Shortness of breath or chest pain ??? Dizziness or fainting ??? Vomiting blood or passing red- or black-colored stool ?? Last Reviewed Date: 2021 ?? [employer]. All rights reserved. This information is not intended as a substitute for professional medical care. Always follow your healthcare professional's instructions. ?? * Tammy Robles RN: PERFORM Event Display: Patient Education Leaflets Authored Date: [id number] Anemia ?? Anemia - Video Anemia means a low level of hemoglobin in the blood. It can be brought on by chronic disease, including inflammatory, infectious, or malignant conditions. This video gives information on the chronic diseases linked to anemia and recommended treatment. To view the video go to this web address: [email or web address] Or, scan this QR code with your smart phone Last Reviewed Date: 2020 ?? [employer]. All rights reserved. This information is not intended as a substitute for professional medical care. Always follow your healthcare professional's instructions. ?? Patient Care team information Care Team Personnel Name: Benson SCHNEIDER, Zenaida Covarrubias Position: [facility] JEWELRY TECHNICIAN MD Member Role: PCP Address: Address: [address] [address] Name: Tammy Robles RN Position: [facility] OB RN Member Role: OB RN Care Team Related Persons Name: LEXIE PARDOANDRA Address: home [address] [place] [id number] Name: MAK DARDEN Address: home [address] [place] [address]
--- OUTSIDE RECORDS SUMMARY | 2023-06-13 23:43 | XMS_ITS | Continuity of Care Document ---
Author Name Unknown Organization [facility] Address [address] [place] [address]- Care Team Providers Care Lead Athlete Name Role Phone Benson SCHNEIDER, Zenaida Covarrubias Primary Care Physic alma Encounter [facility] Date(s): 09/19/22 - 10/19/22 [facility] [address] [place] [address] Allergies, Adverse Reactions, Alerts No Known Allergies [...] 07/27/22 11:41:00 EDT, Route to Pharmacy Electronically, [facility], [facility][id number], Partial fill upon patient request if t... Start Date: 07/27/22 Status: Ordered famotidine 10 mg oral tablet 1 tablet = 10 mg, By Mouth, 2 times a day, # 60 tablet, 4 Refills, Maintenance, 09/05/22 17:48:00 EDT, Tablet, [facility]/pharmacy #1130, Partial fill upon patient request if the prescription is for a schedule II opioid drug., 148 cm, 09/05/22 17:28:00 EDT,... Start Date: 09/05/22 Status: Ordered ferrous sulfate 325 mg oral tablet 1 tablet = 325 mg, By Mouth, Daily, # 60 tablet, 3 Refills, Maintenance, 07/26/22 21:24:00 EDT, Tablet, [facility] Rx #[id number], Partial fill upon patient request if the prescription is for a schedule II opioid drug., 148 cm, 07/13/22 15:07:... Start Date: 07/26/22 Status: Ordered Metamucil 3.4 gm/5.2 gm oral powder for reconstitution = 1.7 Gm, By Mouth, 3 times a day, PRN as needed for constipation, dissolve in 8 oz of fluid; may use 1-3x/day as needed, # 425 Gm, 0 Refills, Maintenance, 07/27/22 11:41:00 EDT, REC Powder, [facility], [facility] #[id number], Partial fill upon patient... Start Date: 07/27/22 Status: Ordered Multivitamins with Folic Acid 1 mg oral tablet 1 tablet, By Mouth, Daily, # 90 tablet, 3 Refills, Maintenance, 06/15/22 16:06:00 EST, Tablet, [facility]/pharmacy #1130, Partial fill upon patient request if the prescription is for a schedule II opioid drug., 1 tablet By Mouth Daily, 148 cm, 01/17/22 23:1... Start Date: 06/15/22 Status: Ordered prochlorperazine 25 mg rectal suppository 1 supp = 25 mg, Rectally, Once, PRN as needed for nausea/vomiting, # 10 supp, 0 Refills, Soft Stop,08/14/22 19:34:00 EDT, Suppository, [facility], Partial fill upon patient request if the prescription is for a schedule II opioid drug., 148, c... Start Date: 08/14/22 Status: Ordered Reglan 5 mg oral tablet 1 tablet = 5 mg, By Mouth, Every 6 hours, PRN Nausea & Vomiting, # 28 tablet, 1 Refills, Maintenance, 07/30/22 10:53:00 EDT, Tablet, [facility], [facility] #[id number], Partial fill upon patient request if the prescription is for a schedule II opioid dr... Start Date: 07/30/22 Status: Ordered Slow Fe (as elemental iron) 45 mg oral tablet, extended release 1 tablet = 45 mg, By Mouth, Daily, # 30 tablet, 6 Refills, Maintenance, 09/14/22 9:08:00 EDT, ER Tablet, [facility], [facility] #[id number], Partial fill upon patient request if the [...] Personnel Name: Benson SCHNEIDER, Zenaida Covarrubias Position: [facility] BARREL REAMER MD Member Role: PCP Address: Address: [place] [address]- Care Team Related Persons Name: CARMEN PARDO Address: home [address] [place] [address] Name: MAK DARDEN Address: home [address] [place] [address]
--- OUTSIDE RECORDS SUMMARY | 2023-06-13 23:43 | XMS_ITS | Continuity of Care Document ---
Author Name Unknown Organization [facility] Address [address] [place] [address]- Care Team Providers Care Program Or Project Administrator Name Role Phone Benson SCHNEIDER, Zenaida Covarrubias Primary Care Physic alma [facility]counter [facility] Date(s): 12/14/22 - 01/13/[address] [address]- Allergies, Adverse Reactions, Alerts No Known Allergies [...] Maintenance, 12/20/22 15:49:00 EDT, Tablet, Community, [facility] Rx #[id number], Partial fill upon patient request if the [...] Personnel Name: Benson SCHNEIDER, Zenaida Covarrubias Position: [facility] [employer] RAIL[employer] WEB DEVELOPER Member Role: PCP Address: Address: [address] [address]- Care Team Related Persons Name: CARMEN PARDO Address: home [address] [place] [address] Name: MAK DARDEN Address: home [address] [place] [address]
--- OUTSIDE RECORDS SUMMARY | 2023-06-13 23:43 | XMS_ITS | Continuity of Care Document ---
Author Name Unknown Organization [facility] Address [address] [place] [address]- Care Team Providers Care Valet Service Attendant Name Role Phone Benson SCHNEIDER, Zenaida Bashir Primary Care Physician [place] [facility] [place] 10/06/20 - 12/03/20 [facility] [address] [address]- Attending Physician: Not on Staff, Attending MD Referring Physician: Zenaida Knowles MD Allergies, [...] constipation, 02/22/17 12:44:13, Route to Pharmacy Electronically, [id number], [facility]/pharmacy #1130 Start Date: 02/22/17 Status: Ordered [...] Ordered ParaGard intrauteral device See Instructions, supervisor lamp shades Paragard and bring to your post- appointment for insertion, # 1 each, 0 Refills, Maintenance, 04/22/17 14:04:19, supervisor lamp shades Paragard and bring to your post- appointment [...]
--- OUTSIDE RECORDS SUMMARY | 2023-06-13 23:43 | XMS_ITS | Continuity of Care Document ---
Author Name Unknown Organization [facility] Anthony Corea n[facility] Address [address], [address]t [place] [address]- Care Team Providers Care Corporate Recruiter Name Role Phone Benson SCHNEIDER, Zenaida Covarrubias Primary Care Physic alma Encounter [facility] Date(s): 12/25/22 - 01/24/23 [facility] Foleyzev CarrilloSMRxTs [facility] [address], [address] [place] [address]- Allergies, Adverse Reactions, Alerts No Known Allergies [...] 0 Refills, Maintenance, 12/20/22 15:49:00 EDT, Tablet, [facility], A [facility] Rx #[id number], Partial fill upon patient request if the [...] Personnel Name: Benson SCHNEIDER, Zenaida Covarrubias Position: [facility] TOOL AND PRODUCTION PLANNER MD Member Role: PCP Address: Address: [address] [address]- Care Team Related Persons Name: CARMEN PARDO Address: home [address] [place] [address] Name: MAK DARDEN Address: home [address] [place] [address]
--- OUTSIDE RECORDS SUMMARY | 2023-06-13 23:43 | XMS_ITS | Continuity of Care Document ---
Author Name Unknown Organization [facility] Address [address] [place] [address]- Care Team Providers Care Videotape Recording Engineer Name Role Phone Benson SCHNEIDER, Zenaida Covarrubias Primary Care Physic alma Encounter [facility] Date(s): 09/28/22 - 10/28/[address] [address]- Allergies, Adverse Reactions, Alerts No Known Allergies [...] 07/27/22 11:41:00 EDT, Route to Pharmacy Electronically, [facility], [facility] Rx #[id number], Partial fill upon patient request if t... Start Date: 07/27/22 Status: Ordered famotidine 10 mg oral tablet 1 tablet = 10 mg, By Mouth, 2 times a day, # 60 tablet, 4 Refills, Maintenance, 09/05/22 17:48:00 EDT, Tablet, [facility]/pharmacy #1130, Partial fill upon patient request if the prescription is for a schedule II opioid drug., 148, cm, 09/05/22 17:28:00 EDT,... Start Date: 09/05/22 Status: Ordered ferrous sulfate 325 mg oral tablet 1 tablet = 325 mg, By Mouth, Daily, # 60 tablet, 3 Refills, Maintenance, 07/26/22 21:24:00 EDT, Tablet, [facility] Rx #[id number], Partial fill upon patient request if the [...] Refills, Maintenance, 07/27/22 11:41:00 EDT, REC Powder, [facility], [facility] Rx #[id number], Partial fill upon patient... Start Date: 07/27/22 Status: Ordered Multivitamins with Folic Acid 1 mg oral tablet 1 tablet, By Mouth, Daily, # 90 tablet, 3 Refills, Maintenance, 06/15/22 16:06:00 EST, Tablet, [facility]/pharmacy #1130, Partial fill upon patient request if the prescription is for a schedule II opioid drug., 1 tablet By Mouth Daily, 148, cm, 01/17/22 23:1... Start Date: 06/15/22 Status: Ordered prochlorperazine 25 mg rectal suppository 1 supp = 25 mg, Rectally, Once, PRN as needed for nausea/vomiting, # 10 supp, 0 Refills, Soft Stop,08/14/22 19:34:00 EDT, Suppository, [facility]/pharmacy #1130, Partial fill upon patient request if the prescription is for a schedule II opioid drug., 148, c... Start Date: 08/14/22 Status: Ordered Reglan 5 mg oral tablet 1 tablet = 5 mg, By Mouth, Every 6 hours, PRN Nausea & Vomiting, # 28 tablet, 1 Refills, Maintenance, 07/30/22 10:53:00 EDT, Tablet, [facility], [facility] #[id number], Partial fill upon patient request if the prescription is for a schedule II opioid dr.Buffy. Start Date: 07/30/22 Status: Ordered Slow Fe (as elemental iron) 45 mg oral tablet, extended release 1 tablet = 45 mg, By Mouth, Daily, # 30 tablet, 6 Refills, Maintenance, 09/14/22 9:08:00 EDT, ER Tablet, [facility], [facility] #[id number], Partial fill upon patient request if the [...] Name: Benson SCHNEIDER, Zenaida Covarrubias Position: S WATER MAIN INSTALLER HELPER MD Member Role: PCP Address: Address: [place] [address]- Care Team Related Persons Name: CARMEN PARDO Address: home [address] [place] [address] Name: MAK DARDEN Address: [place] [address]
--- OUTSIDE RECORDS SUMMARY | 2023-06-13 23:43 | XMS_ITS | Continuity of Care Document ---
Author Name Unknown Organization [facility] Address [address] [place] [address]- Care Team Providers Care Panel Beater Name Role Phone Zenaida Knowles MD Primary Care Physician [place] [facility] [place] 07/02/22 - 08/01/22 [facility] [address] [address] Allergies, Adverse Reactions, Alerts No [...] vis 08/09/09 8Admin Note: vis 02/23/11 Medications amoxicillin 500 mg oral capsule 1 capsule = 500 mg, By Mouth, 3 times a day, for 7 days, # 21 capsule, 0 Refills, Acute 08/03/22 9:04:00 EDT, 07/27/22 9:04:00 EDT, Capsule, [facility], [facility] #[id number], Partial fill upon patient request if the prescription is for a schedule II o... Start Date: 07/27/22 Stop Date: 08/03/22 Status: Ordered Colace sodium 100 mg oral capsule 100 mg, 1, capsule, By Mouth, 2 times a day, PRN, # 60 capsule, Refills 2, Tot. Refills 2, Maintenance, for constipation, 07/27/22 11:41:00 EDT, Route to Pharmacy Electronically, [facility], [facility] #[id number], Partial fill upon patient request if t... Start Date: 07/27/22 Status: Ordered ferrous sulfate 325 mg oral tablet 1 tablet = 325 mg, By Mouth, Daily, # 60 tablet, 3 Refills, Maintenance, 07/26/22 21:24:00 EDT, Tablet, [facility], [facility] #[id number], Partial fill upon patient request if the [...] Refills, Maintenance, 07/27/22 11:41:00 EDT, REC Powder, [facility], [facility] #[id number], Partial fill upon patient... Start Date: 07/27/22 Status: Ordered metroNIDAZOLE 0.75% topical gel 1 applicator, Vaginally, Daily, # 70 Gm, 0 Refills, Maintenance, 07/31/22 20:20:00 EDT, Community, [facility] #[id number], Partial fill upon patient request if the [...] 1 Refills, Maintenance, 07/30/22 10:53:00 EDT, Tablet, [facility], [facility] Rx #[id number], Partial fill upon patient request if the prescription is for a schedule II opioid Start Date: 07/30/22 Status: Ordered Problem List [...] Personnel Name: Benson SCHNEIDER, Zenaida Bashir Position: [facility] SECURITY COMPLIANCE ENGINEER MD Member Role: PCP Address: Address: [address] [place], [place] [address] [address]- Care Team Related Persons Name: CARMEN PARDO Address: [address] [place] [address] Name: MAK DARDEN Address: [address] [place] [address]
--- OUTSIDE RECORDS SUMMARY | 2023-06-13 23:43 | XMS_ITS | Continuity of Care Document ---
Author Name Unknown Organization [facility] Address [address] [place] [address]- Care Team Providers Care Gem Setter Name Role Phone Zenaida Knowles MD Primary Care Physician [place] [facility] [place] 07/[place]22 - 08/30/22 [facility] [address] [address]- Attending Physician: Ariela Bailey Admitting Physician: AdmAriela [...] 07/27/22 11:41:00 EDT, Route to Pharmacy Electronically, [facility], [facility] Rx #[id number], Partial fill upon patient request if t... Start Date: 07/27/22 Status: Ordered ferrous sulfate 325 mg oral tablet 1 tablet = 325 mg, By Mouth, Daily, # 60 tablet, 3 Refills, Maintenance, 07/26/22 21:24:00 EDT, Tablet, [facility], [facility] Rx #[id number], Partial fill upon patient request if the [...] Refills, Maintenance, 07/27/22 11:41:00 EDT, REC Powder, [facility], [facility] #[id number], Partial fill upon patient... Start Date: 07/27/22 Status: Ordered Multivitamins with Folic Acid 1 mg oral tablet 1 tablet, By Mouth, Daily, # 90 tablet, 3 Refills, Maintenance, 06/15/22 16:06:00 EST, Tablet, [facility]/pharmacy #1130, Partial fill upon patient request if the prescription is for a schedule II opioid drug., 1 tablet By Mouth Daily, 148, cm, 01/17/22 23:1... Start Date: 06/15/22 Status: Ordered prochlorperazine 25 mg rectal suppository 1 supp = 25 mg, Rectally, Once, PRN as needed for nausea/vomiting, # 10 supp, 0 Refills, Soft Stop,08/14/22 19:34:00 EDT, Suppository, [facility]/pharmacy #1130, Partial fill upon patient request if the prescription is for a schedule II opioid drug., 148, c... Start Date: 08/14/22 Status: Ordered Reglan 5 mg oral tablet 1 tablet = 5 mg, By Mouth, Every 6 hours, PRN Nausea & Vomiting, # 28 tablet, 1 Refills, Maintenance, 07/30/22 10:53:00 EDT, Tablet, [facility][id number], Partial fill upon patient request if the [...] Personnel Name: Benson SCHNEIDER, Zenaida Bashir Position: [facility] DOMESTIC VIOLENCE ADVOCATE MD Member Role: PCP Address: Address: [address] [place] [address] [place] [address]- Care Team Related Persons Name: CARMEN PARDO Address: home [address] [place] [address] Name: MAK DARDEN Address: home [address] [place] [address]
--- OUTSIDE RECORDS SUMMARY | 2023-06-13 23:43 | XMS_ITS | Continuity of Care Document ---
Author Name Unknown Organization [facility] Address [address] [place] [address]- Care Team Providers Care Patrol Captain Name Role Phone Benson SCHNEIDER, Zenaida Covarrubias Primary Care Physic alma Encounter [facility] Date(s): 09/11/22 - 10/11/[address] [address]- Allergies, Adverse Reactions, Alerts No Known Allergies [...] 07/27/22 11:41:00 EDT, Route to Pharmacy Electronically, [facility], [facility] #[id number], Partial fill upon patient request if t... Start Date: 07/27/22 Status: Ordered famotidine 10 mg oral tablet 1 tablet = 10 mg, By Mouth, 2 times a day, # 60 tablet, 4 Refills, Maintenance, 09/05/22 17:48:00 EDT, Tablet, [facility]/pharmacy #1130, Partial fill upon patient request if the prescription is for a schedule II opioid drug., 148, cm, 09/05/22 17:28:00 EDT,... Start Date: 09/05/22 Status: Ordered ferrous sulfate 325 mg oral tablet 1 tablet = 325 mg, By Mouth, Daily, # 60 tablet, 3 Refills, Maintenance, 07/26/22 21:24:00 EDT, Tablet, [facility] Rx #[id number], Partial fill upon patient request if the [...] Refills, Maintenance, 07/27/22 11:41:00 EDT, REC Powder, [facility], [facility] #[id number], Partial fill upon patient... Start Date: 07/27/22 Status: Ordered Multivitamins with Folic Acid 1 mg oral tablet 1 tablet, By Mouth, Daily, # 90 tablet, 3 Refills, Maintenance, 06/15/22 16:06:00 EST, Tablet, [facility]/pharmacy #1130, Partial fill upon patient request if the prescription is for a schedule II opioid drug., 1 tablet By Mouth Daily, 148, cm, 01/17/22 23:1... Start Date: 06/15/22 Status: Ordered prochlorperazine 25 mg rectal suppository 1 supp = 25 mg, Rectally, Once, PRN as needed for nausea/vomiting, # 10 supp, 0 Refills, Soft Stop,08/14/22 19:34:00 EDT, Suppository, [facility]/pharmacy #1130, Partial fill upon patient request if the prescription is for a schedule II opioid drug., 148, c... Start Date: 08/14/22 Status: Ordered Reglan 5 mg oral tablet 1 tablet = 5 mg, By Mouth, Every 6 hours, PRN Nausea & Vomiting, # 28 tablet, 1 Refills, Maintenance, 07/30/22 10:53:00 EDT, Tablet, Community, [facility] #[id number], Partial fill upon patient request if the prescription is for a schedule II opioid dr.Buffy. Start Date: 07/30/22 Status: Ordered Slow Fe (as elemental iron) 45 mg oral tablet, extended release 1 tablet = 45 mg, By Mouth, Daily, # 30 tablet, 6 Refills, Maintenance, 09/14/22 9:08:00 EDT, ER Tablet, Community, [facility] #[id number], Partial fill upon patient request if the [...] Name: Benson SCHNEIDER, Zenaida Covarrubias Position: S VENETIAN BLIND MECHANIC MD Member Role: PCP Address: Address: [place] [address]- Care Team Related Persons Name: CARMEN PARDO Address: home [address] [place] [address] Name: MAK [place]ARDEN Address: [place] [address]
--- OUTSIDE RECORDS SUMMARY | 2023-06-13 23:43 | XMS_ITS | Continuity of Care Document ---
Author Name Unknown Organization [facility] Address [address] [place] [address]- Care Team Providers Care Data Support Analyst Name Role Phone Not on Staff, PCP Primary Care Physician Unavail able Encounter [facility] Date(s): 05/13/20 - 06/18/[address] [address] Attending Physician: Zenaida Knowles MD Referring Physician: Zenaida [...] constipation, 02/22/17 12:44:13, Route to Pharmacy Electronically, [id number], [facility]/pharmacy #1130 Start Date: 02/22/17 Status: [...] Status: Ordered ParaGard intrauteral device See Instructions, boiler operators supervisor Paragard and bring to your post- appointment for insertion, # 1 each, 0 Refills, Maintenance, 04/22/17 14:04:19, boiler operators supervisor Paragard and bring to your post- [...]
--- OUTSIDE RECORDS SUMMARY | 2023-06-13 23:43 | XMS_ITS | Continuity of Care Document ---
Author Name Unknown Organization [facility] Address [address] [facility], [address]t [place] [address]- Care Team Providers Care Software Database Architect Name Role Phone Not on Staff, PCP Primary Care Physician Unavail able [facility] Date(s): 05/20/20 - 06/19/20 [facility] [address] [facility] 4th [address] [place], [place] [address] Allergies, Adverse Reactions, Alerts Substance Reaction Severity [...] constipation, 02/22/17 12:44:13, Route to Pharmacy Electronically, [id number], [facility]/pharmacy #1130 Start Date: 02/22/17 Status: Ordered docusate [...] Status: Ordered ParaGard intrauteral device See Instructions, terminal gauger supervisor Paragard and bring to your post- appointment for insertion, # 1 each, 0 Refills, Maintenance, 04/22/17 14:04:19, terminal gauger supervisor Paragard and bring to your post- [...]
--- OUTSIDE RECORDS SUMMARY | 2023-06-13 23:43 | XMS_ITS | Continuity of Care Document ---
Author Name Unknown Organization [facility] Address [address] [place] [address]- Care Team Providers Care Service Car Driver Name Role Phone Benson SCHNEIDER, Zenaida Bashir Primary Care Physician [place] [facility](s): 08/06/22 - 09/05/22 [facility] [address] [address] Allergies, Adverse Reactions, Alerts No [...] days, # 45 Gm, 0 Refills, Acute 09/12/22 17:49:00EDT, 09/05/22 17:49:00 EDT, Cream, [facility]/pharmacy #1130, Partial fill upon patient request if the prescription is for a schedule II opioid drug., 1 appli... Start Date: 09/05/22 Stop Date: 09/12/22 Status: Ordered Colace sodium 100 mg oral capsule 100 mg, 1, capsule, By Mouth, 2 times a day, PRN, # 60 capsule, Refills 2, Tot. Refills 2, Maintenance, for constipation, 07/27/22 11:41:00 EDT, Route to Pharmacy Electronically, [facility], [facility] Rx #[id number], Partial fill upon patient request if t... Start Date: 07/27/22 Status: Ordered famotidine 10 mg oral tablet 1 tablet = 10 mg, By Mouth, 2 times a day, # 60 tablet, 4 Refills, Maintenance, 09/05/22 17:48:00 EDT, Tablet, [facility]/pharmacy #1130, Partial fill upon patient request if the prescription is for a schedule II opioid drug., 148, cm, 09/05/22 17:28:00 EDT,... Start Date: 09/05/22 Status: Ordered ferrous sulfate 325 mg oral tablet 1 tablet = 325 mg, By Mouth, Daily, # 60 tablet, 3 Refills, Maintenance, 07/26/22 21:24:00 EDT, Tablet, [facility] #[id number], Partial fill upon patient request if the [...] Refills, Maintenance, 07/27/22 11:41:00 EDT, REC Powder, [facility] #[id number], Partial fill upon patient... Start Date: 07/27/22 [...] 1 Refills, Maintenance, 07/30/22 10:53:00 EDT, Tablet, [facility], [facility] Rx #[id number], Partial fill upon patient request if the [...] Personnel Name: Benson SCHNEIDER, Zenaida Bashir Position: [facility] SLOTTER OPERATOR Member Role: PCP Address: Address: [address] [place], [place] [address], [place] [address]- Care Team Related Persons Name: CARMEN PARDO Address: home [address] [place] [address] Name: MAK DARDEN Address: home [address] [place] [address]
--- OUTSIDE RECORDS SUMMARY | 2023-06-13 23:43 | XMS_ITS | Continuity of Care Document ---
Author Name Unknown Organization [facility] Address [address] [place] [address]- Care Team Providers Care Research Nutritionist Name Role Phone Not on Staff, PCP Primary Care Physician Unavail able [facility]counter [facility] Date(s): 11/27/19 - 01/21/20 [facility] [address] [place] [address] [facility] Attending Physician: Boone Grant MD Admitting Physician: Boone Grant MD Referring Physician: Taylor Rosa NP Allergies, Adverse Reactions, Alerts Substance Reaction Severity [...] constipation, 02/22/17 12:44:13, Route to Pharmacy Electronically, [id number], [facility]/pharmacy #1130 Start Date: 02/22/17 Status: Ordered [...] Status: Ordered ParaGard intrauteral device See Instructions, radial drill press set up operator Paragard and bring to your post- appointment for insertion, # 1 each, 0 Refills, Maintenance, 04/22/17 14:04:19, radial drill press set up operator Paragard and bring to your post- appointment [...]
--- OUTSIDE RECORDS SUMMARY | 2023-06-13 23:43 | XMS_ITS | Continuity of Care Document ---
Author Name Unknown Organization [facility] Address [address] [place] [address]- Care Team Providers Care Donations Attendant Name Role Phone Not on Staff, PCP Primary Care Physician Unavail able [facility]counter [facility] Date[facility]s): 12/22/19 - 01/21/20 [facility] [address] [place] [address]- [facility] Attending Physician: Ariela Bailey Admitting Physician: Admtr, Ariela Referring Physician: Admtr, Ar8 Allergies, Adverse Reactions, Alerts Substance Reaction Severity [...] constipation, 02/22/17 12:44:13, Route to Pharmacy Electronically, [id number], [facility]/pharmacy #1130 Start Date: 02/22/17 Status: Ordered docusate [...] Status: Ordered ParaGard intrauteral device See Instructions, retail chain store area supervisor Paragard and bring to your post- appointment for insertion, # 1 each, 0 Refills, Maintenance, 04/22/17 14:04:19, retail chain store area supervisor Paragard and bring to your post- [...]
--- OUTSIDE RECORDS SUMMARY | 2023-06-13 23:43 | XMS_ITS | Continuity of Care Document ---
Author Name Unknown Organization [facility] Address [address] [place] [address]- Care Team Providers Care Sales Enablement Specialist Name Role Phone Zenaida Knowles MD Primary Care Physician [place] [facility] [place] 08/[place]/22 [facility] [address] [address] Allergies, Adverse Reactions, Alerts No [...] 11:41:00 EDT, Route to Pharmacy Electronically, [id number], Partial fill upon patient request if t... Start Date: 07/27/22 Status: Ordered ferrous sulfate 325 mg oral tablet 1 tablet = 325 mg, By Mouth, Daily, # 60 tablet, 3 Refills, Maintenance, 07/26/22 21:24:00 EDT, [id number], Partial fill upon patient request if the [...] Refills, Maintenance, 07/27/22 11:41:00 EDT, REC Powder[id number], Partial fill upon patient... Start Date: 07/27/22 Status: Ordered metroNIDAZOLE 0.75% topical gel 1 applicator, Vaginally, Daily, # 70 Gm, 0 Refills, Maintenance, 07/31/22 20:20:00 EDT, [id number], Partial fill upon patient request if the prescription is for a schedule II opioid drug., 1 applicator Vaginally Daily,x5 days, 14... Start Date: 07/31/22 Stop Date: 08/05/22 Status: Ordered Multivitamins with Folic Acid 1 mg oral tablet 1 tablet, By Mouth, Daily, # 90 tablet, 3 Refills, Maintenance, 06/15/22 16:06:00 EST, Tablet, [facility]/pharmacy #1130, Partial fill upon [...] Maintenance, 07/30/22 10:53:00 EDT, Tablet, Community, [facility] #[id number], Partial fill upon patient request if the [...] Personnel Name: Benson SCHNEIDER, Zenaida Bashir Position: [facility] DIGITAL MARKETING INTERN Member Role: PCP Address: Address: [address] [place] [address]- Care Team Related Persons Name: CARMEN PARDO Address: home [address] [place] [address] Name: MAK DARDEN Address: [address] [place] [address]
--- OUTSIDE RECORDS SUMMARY | 2023-06-13 23:43 | XMS_ITS | Continuity of Care Document ---
Author Name Unknown Organization [facility] ion Address [address] [place] [address]- Care Team Providers Care Finisher Merchant Products Name Role Phone Benson SCHNEIDER, Zenaida Bashir Primary Care Physician [place] [facility] [place] - 07/23/[address] [address] Attending Physician: Zenaida Knowles MD Allergies, Adverse Reactions, [...] constipation, 02/22/17 12:44:13, Route to Pharmacy Electronically, [id number], [facility]/pharmacy #1130 Start Date: 02/22/17 Status: [...] Status: Ordered ParaGard intrauteral device See Instructions, mold yard supervisor Paragard and bring to your post- appointment for insertion, # 1 each, 0 Refills, Maintenance, 04/22/17 14:04:19, mold yard supervisor Paragard and bring to your post- [...]
--- OUTSIDE RECORDS SUMMARY | 2023-06-13 23:43 | XMS_ITS | Continuity of Care Document ---
Author Name Unknown Organization [facility] Address [address] [place] [address]- Care Team Providers Care Trim Stencil Maker Name Role Phone Benson SCHNEIDER, Zenaida Covarrubias Primary Care Physic alma [facility]counter [facility] Date(s): 07/30/22 - 10/03/[address] [address]- Attending Physician: Not on Staff, Attending MD [...] 07/27/22 11:41:00 EDT, [facility] to [facility]ically[id number], Partial fill upon patient request if t... Start Date: 07/27/22 Status: Ordered famotidine 10 mg oral tablet 1 tablet = 10 mg, By Mouth, 2 times a day, # 60 tablet, 4 Refills, Maintenance, 09/05/22 17:48:00 EDT, Tablet, [facility]/pharmacy #1130, Partial fill upon patient request if the prescription is for a schedule II opioid drug., 148, cm, 09/05/22 17:28:00 EDT,... Start Date: 09/05/22 Status: Ordered ferrous sulfate 325 mg oral tablet 1 tablet = 325 mg, By Mouth, Daily, # 60 tablet, 3 Refills, Maintenance, 07/26/22 21:24:00 EDT, Tablet, [facility] #[id number], Partial fill upon patient request if the [...] Refills, Maintenance, 07/27/22 11:41:00 EDT, REC Powder, [facility], [facility][id number], Partial fill upon patient... Start Date: 07/27/22 Status: Ordered Multivitamins with Folic Acid 1 mg oral tablet 1 tablet, By Mouth, Daily, # 90 tablet, 3 Refills, Maintenance, 06/15/22 16:06:00 EST, Tablet, [facility]/pharmacy #1130, Partial fill upon patient request if the prescription is for a schedule II opioid drug., 1 tablet By Mouth Daily, 148, cm, 01/17/22 23:1... Start Date: 06/15/22 Status: Ordered prochlorperazine 25 mg rectal suppository 1 supp = 25 mg, Rectally, Once, PRN as needed for nausea/vomiting, # 10 supp, 0 Refills, Soft Stop,08/14/22 19:34:00 EDT, Suppository, [facility]/pharmacy #1130, Partial fill upon patient request if the prescription is for a schedule II opioid drug., 148, c... Start Date: 08/14/22 Status: Ordered Reglan 5 mg oral tablet 1 tablet = 5 mg, By Mouth, Every 6 hours, PRN Nausea & Vomiting, # 28 tablet, 1 Refills, Maintenance, 07/30/22 10:53:00 EDT, Tablet, Community, [facility] #[id number], Partial fill upon patient request if the prescription is for a schedule II opioid dr... Start Date: 07/30/22 Status: Ordered Slow Fe (as elemental iron) 45 mg oral tablet, extended release 1 tablet = 45 mg, By Mouth, Daily, # 30 tablet, 6 Refills, Maintenance, 09/14/22 9:08:00 EDT, ER Tablet, Community, [facility] #[id number], Partial fill upon patient request if the [...] Name: Benson SCHNEIDER, Zenaida Covarrubias Position: S REINSURANCE CLERK Member Role: PCP Address: Address: [place] [address]- Care Team Related Persons Name: CARMEN PARDO Address: home [address] [place] [address] Name: MAK DARDEN Address: home [address] [place] [address]
--- OUTSIDE RECORDS SUMMARY | 2023-06-13 23:43 | XMS_ITS | Continuity of Care Document ---
Author Name Unknown Organization [facility] Address [address] [place] [address]- Care Team Providers Care Digital Experience Manager Name Role Phone Benson SCHNEIDER, Zenaida Covarrubias Primary Care Physic alma [place] [facility] [place]26[place]23 - 05/26/[address] [address]- Attending Physician: Ariela Bailey Admitting Physician: Ariela [...] 16:12:00 EDT, Capsule, Community, [facility] #[id number], Partial fill upon patient request if the prescription is for a schedul... Start Date: 02/13/23 Status: Ordered docusate sodium 100 mg oral capsule 1 capsule = 100 mg, By Mouth, 2 times a day, PRN as needed for constipation, # 60 capsule, 0 Refills, Maintenance, 02/14/23 12:25:00 EDT, Capsule, Community, [facility] #[id number], Partial fill upon patient request if the prescription is for a schedul... Start Date: 02/14/23 Status: Ordered sertraline 50 mg oral tablet 1 tablet = 50 mg, By Mouth, Daily, # 90 tablet, 0 Refills, Maintenance, 12/20/22 15:49:00 EDT, Tablet, Community, [facility] #[id number], Partial fill upon patient request if the [...] oldest [Reference Range]: 1 2 3 Height 148.50 cm (08/25/10 10:44 AM) 148.50 cm (07/28/10 10:42 AM) 148.50 cm (06/30/10 10:39 AM) Weight 50.000 kg (08/25/10 10:44 AM) 47.200 kg (07/28/10 10:42 AM) 46.970 kg (06/30/10 10:39 AM) Body Mass Index [18.50-24.99] 22.67 (08/25/10 10:44 AM) 21.40 (07/28/10 10:42 AM) 21.30 (06/30/10 10:39 AM) Blood Pressure [80-130/50-80 mm Hg] 85/52mm Hg (08/25/10 10:44 AM) 97/39mm Hg (07/28/10 10:42 AM) 88/53mm Hg (06/30/10 10:39 AM) Social History Social History Type Response Smoking Status Never (less than 100 in lifetime) entered on: 07/13/22 Sex Radiology * Taylor Abad: PERFORM Event Display: Radiology Results Scanned Authored Date: [id number] Patient Care team information Care Team Personnel Name: Benson SCHNEIDER, Zenaida Covarrubias Position: [facility] LIVE IN HOUSEKEEPER Member Role: PCP Address: [facility] [place] [address]- Care Team Related Persons Name: BERNARDA CREWS Address: [address] Address: home [address] [place] [address] [place] Name: CARMEN PARDO Address: [address] [place] [address] Name: MAK DARDEN Address: home [address] [place] [address]
--- OUTSIDE RECORDS SUMMARY | 2023-06-13 23:44 | XMS_ITS | Continuity of Care Document ---
Author Name Unknown Organization [facility] Address [address] [place] [address]- Care Team Providers Care Obstetrician Name Role Phone Benson SCHNEIDER, Zenaida Covarrubias Primary Care Physic alma [facility]counter [facility] Date(s): 04/25/23 - 05/25/[address] [address]- Allergies, Adverse Reactions, Alerts No Known Allergies [...] 16:12:00 EDT, Capsule, Community, [facility] #[id number], Partial fill upon patient request if the prescription is for a schedul... Start Date: 02/13/23 Status: Ordered docusate sodium 100 mg oral capsule 1 capsule = 100 mg, By Mouth, 2 times a day, PRN as needed for constipation, # 60 capsule, 0 Refills, Maintenance, 02/14/23 12:25:00 EDT, Capsule, Community, [facility] #[id number], Partial fill upon patient request if the prescription is for a schedul... Start Date: 02/14/23 Status: Ordered sertraline 50 mg oral tablet 1 tablet = 50 mg, By Mouth, Daily, # 90 tablet, 0 Refills, Maintenance, 12/20/22 15:49:00 EDT, Tablet, Community, [facility] #[id number], Partial fill upon patient request if the [...] Name: Benson SCHNEIDER, Zenaida Covarrubias Position: S WEIGHT ENGINEER MD Member Role: PCP Address: Address: [address] [address] Care Team Related Persons Name: BERNARDA CREWS Address: [address] Address: home [address] [place] [address] [place] Name: CARMEN PARDO Address: [address] [place] [address] Name: MAK DARDEN Address: [place] [address]
--- OUTSIDE RECORDS SUMMARY | 2023-06-13 23:44 | XMS_ITS | Continuity of Care Document ---
Author Name Unknown Organization [facility] Address [address] [place] [address]- Care Team Providers Care Manager Registration Name Role Phone Zenaida Knowles MD Primary Care Physician En[place] [facility] [place](s): 04/04/20 - 06/09/20 [facility] [address] [address]- Attending Physician: Not on Staff, Attending MD Allergies, Adverse Reactions, Alerts Substance Reaction [...] constipation, 02/22/17 12:44:13, Route to Pharmacy Electronically, [id number], [facility]/pharmacy #1130 Start [...] Status: Ordered ParaGard intrauteral device See Instructions, upper cutter out Paragard and bring to your post- appointment for insertion, # 1 each, 0 Refills, Maintenance, 04/22/17 14:04:19, upper cutter out Paragard and bring to your post- appointment [...]
--- OUTSIDE RECORDS SUMMARY | 2023-06-13 23:44 | XMS_ITS | Continuity of Care Document ---
Author Name Unknown Organization [facility] Address [address] [place] [address]- Care Team Providers Care Truck Unloader Name Role Phone Benson SCHNEIDER, Zenaida Covarrubias Primary Care Physic alma [place] [facility] [place] Date(s): 12/20/22 - 03/17/23 [facility] [address] [address] Attending Physician: Not on Staff, Attending MD [...] 16:12:00 EDT, Capsule, Community, [facility] #[id number], Partial fill upon patient request if the prescription is for a schedul... Start Date: 02/13/23 Status: Ordered docusate sodium 100 mg oral capsule 1 capsule = 100 mg, By Mouth, 2 times a day, PRN as needed for constipation, # 60 capsule, 0 Refills, Maintenance, 02/14/23 12:25:00 EDT, Capsule, Community, [facility] #[id number], Partial fill upon patient request if the prescription is for a schedul... Start Date: 02/14/23 Status: Ordered sertraline 50 mg oral tablet 1 tablet = 50 mg, By Mouth, Daily, # 90 tablet, 0 Refills, Maintenance, 12/20/22 15:49:00 EDT, Tablet, Community, [facility] #[id number], Partial fill upon patient request if the [...] Name: Benson SCHNEIDER, Zenaida Covarrubias Position: S FINISHER WALLBOARD AND PLASTERBOARD MD Member Role: PCP Address: Address: [address] [address]- Care Team Related Persons Name: BERNARDA CREWS Address: [address] Address: [address] Name: CARMEN PARDO Address: home [address] [place] [address] Name: MAK DARDEN Address: [place] [address]
--- OUTSIDE RECORDS SUMMARY | 2023-06-13 23:44 | XMS_ITS | Continuity of Care Document ---
Author Name Unknown Organization [facility] Address [address] [place] [address]- Care Team Providers Care Mold Shaker Name Role Phone Benson SCHNEIDER, Zenaida Covarrubias Primary Care Physic alma Encounter [facility] Date(s): 03/20/23 - 04/20/[address] [address]- Attending Physician: Not on Staff, Attending MD [...] 16:12:00 EDT, Capsule, Community, [facility] #[id number], Partial fill upon patient request if the prescription is for a schedul... Start Date: 02/13/23 Status: Ordered docusate sodium 100 mg oral capsule 1 capsule = 100 mg, By Mouth, 2 times a day, PRN as needed for constipation, # 60 capsule, 0 Refills, Maintenance, 02/14/23 12:25:00 EDT, Capsule, Community, [facility] #[id number], Partial fill upon patient request if the prescription is for a schedul... Start Date: 02/14/23 Status: Ordered metroNIDAZOLE 500 mg oral tablet 1 tablet = 500 mg, By Mouth, Every 12 hours, for 7 days, # 14 tablet, 0 Refills, Acute 04/25/23 17:11:00 EST, 04/18/23 17:11:00 EST, Tablet, Community, [facility] #[id number], Partial fill upon patient request if the prescription is for a schedule II o... Start Date: 04/18/23 Stop Date: 04/25/23 Status: Ordered sertraline 50 mg oral tablet 1 tablet = 50 mg, By Mouth, Daily, # 90 tablet, 0 Refills, Maintenance, 12/20/22 15:49:00 EDT, Tablet, Community, [facility] #[id number], Partial fill upon patient request if the [...] Name: Benson SCHNEIDER, Zenaida Covarrubias Position: S COMPENSATION SPECIALIST MD Member Role: PCP Address: Address: [address] [place] [address] [place] [address]- Care Team Related Persons Name: MARS BERNARDA Address: [address] Address: [address] Name: CARMEN PARDO Address: [address] [place] [address] Name: MAK DARDEN Address: [address] [place] [address]
--- OUTSIDE RECORDS SUMMARY | 2023-06-13 23:44 | XMS_ITS | Continuity of Care Document ---
Author Name Unknown Organization [facility] ter Address [address] [place] [id number] Care Team Providers Care Pediatric Genetic Counselor Name Role Phone Benson SCHNEIDER, Zenaida Covarrubias Primary Care Physic alma Encounter [facility] Date(s): 02/12/23 - 02/14/[address] [address] Discharge Disposition: A-D/C Home Attending Physician: [...] vis 08/09/09 8Admin Note: vis 02/23/11 Medications Acetaminophen Tablet 650 mg, Tablet, By Mouth, (1-3), may give 325mg per patient preference and re- dose with 325mg within 4 hours if needed. Patient should only receive a total of 650mg of Acetaminophen every 4 hours., 02/14/23 7:00:00 EDT Start Date: 02/14/23 Stop Date: 02/14/23 Status: Completed Dilaudid 2 mg oral tablet 1 tablet = 2 mg, By Mouth, Every 4 hours, PRN as needed for pain, for 7 days, # 15 tablet, 0 Refills, Acute 02/21/23 12:25:00 EDT, 02/14/23 12:25:00 EDT, Tablet, Community, A [facility][id number], Partial fill upon patient request if the prescription i... Start Date: 02/14/23 Stop Date: 02/21/23 Status: Ordered Dilaudid 4 mg oral tablet 4 mg, Tablet, By Mouth, Every 4 hours, PRN for Pain , Severe, Routine, 02/14/23 7:23:00 EDT Start Date: 02/14/23 Stop Date: 02/14/23 Status: Discontinued docusate sodium 100 mg oral capsule 1 capsule = 100 mg, By Mouth, 2 times a day, PRN as needed for constipation, # 60 capsule, 0 Refills, Maintenance, 02/13/23 16:12:00 EDT, Capsule, Community, [facility] #[id number], Partial fill upon patient request if the prescription is for a schedul... Start Date: 02/13/23 Status: Ordered docusate sodium 100 mg oral capsule 1 capsule = 100 mg, By Mouth, 2 times a day, PRN as needed for constipation, # 60 capsule, 0 Refills, Maintenance, 02/14/23 12:25:00 EDT, Capsule, Community, [facility] #[id number], Partial fill upon patient request if the prescription is for a schedul... Start Date: 02/14/23 Status: Ordered ibuprofen 800 mg oral tablet 800 mg, 1, tablet, By Mouth, Every 6 hours, for 7 days, # 50 tablet, Refills 0, Tot. Refills 0, Acute 02/21/23 12:25:00 EDT, 02/14/23 12:25:00 EDT, Route to Pharmacy Electronically, [facility], [facility] #[id number], Partial fill upon patient request i... Start Date: 02/14/23 Stop Date: 02/21/23 Status: Ordered oxyCODONE 5 mg oral capsule 1 capsule = 5 mg, By Mouth, Every 6 hours, PRN for pain, for 5 days, # 12 capsule, 0 Refills, Acute02/18/23 16:12:00 EDT, 02/13/23 16:12:00 EDT, Capsule, [facility], [facility][id number], Partial fill upon patient request if the prescription is for a... Start Date: 02/13/23 Stop Date: 02/18/23 Status: Ordered sertraline 50 mg oral tablet 1 tablet = 50 mg, By Mouth, Daily, # 90 tablet, 0 Refills, Maintenance, 12/20/22 15:49:00 EDT, Tablet, [facility], [facility] #[id number], Partial fill upon patient request if the [...] 02/13/23 16:12:00 EDT, Route to Pharmacy Electronically, [facility], [facility] #[id number], Partial fill... Start Date: 02/13/23 Stop Date: 02/20/23 Status: Ordered simethicone 80 mg oral tablet, chewable 80 mg, 1, tablet, By Mouth, 3 times a day after meals and bedtime, for 7 days, # 90 tablet, Refills0, Tot. Refills 0, Acute 02/21/23 12:25:00 EDT, 02/14/23 12:25:00 EDT, Route to Pharmacy Electronically, [facility], [facility] #[id number], Partial fill... Start Date: 02/14/23 Stop Date: 02/21/23 Status: Ordered Tylenol 8 Hour 650 mg oral tablet, extended release 2 tablet = 1,300 mg, By Mouth, Every 8 hours, PRN as needed for pain, for 7 days, # 50 tablet, 0 Refills, Acute 02/21/23 12:25:00 EDT, 02/14/23 12:25:00 EDT, ER Tablet, Community, [facility] #[id number], Partial fill upon patient request if the prescri... Start Date: 02/14/23 Stop Date: 02/21/23 Status: Ordered Unisom 25 mg oral tablet 1 tablet = 25 mg, By Mouth, Daily at bedtime, PRN for sleep, # 32 tablet, 0 Refills, Acute 02/28/2315:57:00 EDT, 01/29/23 15:57:00 EDT, Tablet, Community, [facility] #[id number], Partial fill upon patient request if the [...] Declines (vaginal after ) trial Confirmed Active Procedures Procedure Date Related Diagnosis Body Site Status delivery only; 02/12/23 C ompleted Results Radiology Reports * Exam Date Time Procedure Performing Provider Status 02/13/23 9:20 AM US Doppler Ext Upper Venous Right Saira Mann; Auth (Verified) Notes: (US Doppler Ext Upper Venous Right) Reason For Exam: Patient w/ history of thrombophlebitis and R neck/shoulder pain;Pain/Tenderness Extremities RESULT: US Doppler Ext Upper Venous Right US Doppler Ext Upper Venous Right Reason: Pain Tenderness Extremities; Patient w history of thrombophlebitis and R neck shoulder pain; Clinical Question(s): Thrombosis; Recurrent thrombophlebitis COMPARISON: 12/27/2022. IMAGING TECHNIQUE: Ultrasound examination of the upper extremity deep venous system was performed using grayscale, color, and spectral wave analysis including response to compression. Assessment includes the contralateral jugular and subclavian vein. FINDINGS: Internal jugular vein: Patent. No thrombosis. Subclavian vein: Patent. No thrombosis. Axillary vein: Patent. No thrombosis. Brachial vein: Patent. No thrombosis. Basilic vein: Patent. No thrombosis. Cephalic vein: Nonocclusive thrombus at the antecubital fossa. This is improved from the prior study where the thrombus was more extensive and occlusive. Contralateral internal jugular vein: Patent. No thrombosis. Contralateral subclavian vein: Patent. No thrombosis. IMPRESSION: Persistent, although improved, thrombus in the cephalic vein. The thrombus is now nonocclusive and involves a shorter segment compared to prior ultrasound. I have personally reviewed the images and I agree with this report. WSN: [id number] Ordering Physician: Booker Carbajal Dictated By: Aleksandar Nazario MD Dictated Date/Time: 02/13/23 9:29 am Reviewed By: Fermín Henderson MD Signed By: Fermín Henderson MD Signed Date/Time: 02/13/23 9:34 am Transcribed By: JAIME Transcribed Date/Time: 02/13/23 9:25 am Vital Signs Most recent to oldest [Reference Range]: 1 2 3 Height 148 cm (02/14/23 9:11 AM) 148 cm (02/14/23 12:00 AM) 148 cm (02/13/23 10:31 AM) Weight 74.4 kg (02/12/23 11:06 AM) 74.4 kg (02/11/23 7:26 PM) Oxygen Saturation [94-100 %] 100 % (02/14/23 9:11 AM) 99 % (02/14/23 12:00 AM) 100 % (02/13/23 10:31 AM) Pulse Rate [55-90 bpm] 72 bpm (02/14/23 9:11 AM) 76 bpm (02/14/23 12:00 AM) 74 bpm (02/13/23 10:31 AM) Body Mass Index [18.5-24.99 kg/m2] 33.97 kg/m2 *>HHI* (02/11/23 7:26 PM) Blood Pressure [90-138/55-84 mm Hg] 107/67mm Hg (02/14/23 9:11 AM) 112/77mm Hg (02/14/23 12:00 AM) 104/68mm Hg (02/13/23 10:31 AM) Respiratory Rate [16-30 br/min] 18 br/min (02/14/23 12:15 PM) 18 br/min (02/14/23 11:15 AM) 18 br/min (02/14/23 10:05 AM) Temperature [96.8-100.4 DegF] 98.2 DegF (02/14/23 9:11 AM) 98 DegF (02/14/23 12:00 AM) 97.9 DegF (02/13/23 10:31 AM) Mode of Delivery (Oxygen) Room air (02/14/23 9:11 AM) Room air (02/14/23 12:00 AM) Room air (02/13/23 10:31 AM) Blood pressure sites Arm, left (02/14/23 12:00 AM) Arm, left (02/13/23 10:31 AM) Arm, left (02/13/23 12:10 AM) Temperature Route Oral (02/14/23 9:11 AM) Oral (02/14/23 12:00 AM) Oral (02/13/23 10:31 AM) Dry Weight 74.4 kg (02/11/23 7:26 PM) Social History Social History Type Response Smoking Status Never (less than 100 in lifetime) entered on: 07/13/22 Sex History and physical note * Junior Olson MD: PERFORM Event Display: History and Physical Hospital Authored Date: Patient: ??CAYDEN STERLING ? Age:??27 Years?Sex:??Female?:??1995?? OB Reason for Admission OB Reason for Admission?? No qualifying data available. LMP/EGA/DUNIA Gestational Age (EGA) and DUNIA? * Note: EGA calculated as of 02/12/2023 ?? DUNIA:??02/18/2023?EGA*:??39 weeks 1 day ? History?(2,0,2,2)?Method:??Ultrasound??(07/30/2022) History of Present Illness Patient is a 27??year old at??39 and??1??presenting for scheduled repeat section and salpingectomy. She denies contractions,??leakage of fluid, or vaginal bleeding. Endorses good movement. Denies fever/chills, headache, dizziness, changes in vision, chest pain, shortness of breath,??right upper quadrant??pain, or swelling. Overall, doing well with no complaints. Review of Systems All systems reviewed and negative except as noted above in HPI. Physical Exam Vitals & Measurements T:??97.8?F?? HR:??67??(Peripheral)?? RR:??18?? BP:??114/70?? HT:??148??cm?? WT:??74.4??kg?? BMI:??33.97?? Constitutional:??Well-developed, no acute distress. Respiratory:??Equal chest rise bilaterally, no labored breathing.? Abdomen/GI:??Soft, non-tender, non-distended. No guarding or rebound tenderness.??Gravid. Extremities:??Warm and well-perfused.?? Skin:??Normal for ethnicity. Neurological/Psychiatric:??Appearance appropriate, mood and affect stable. Assessment/Plan Assessment:??Patient is a 27 year old at 39 and 1 presenting for scheduled repeat section + salpingectomy. GBS positive, Rh positive. Mod risk PPH. Plan to proceed to OR for planned procedure. ?? Patient was consented for section. We discussed the risks of surgery including bleeding, infection, risks of anesthesia, and damage to surrounding structures. She would accept blood if needed in an emergency. Discussed that the risk of infection and use of prophylactic antibiotics are indicated with this procedure. Counseled regarding risk of damage to bladder, bowel, ureters, nerves, blood vessels, and muscles. Discussed that if any damage occurred we would address it in the OR eitherourselves or would call in the appropriate surgeons to assist. All questions were answered and consents were signed. ?? Forwarded H and P to Dr. Betancourt, attending MD, for review ?? Anemia during (O99.019):? Fe supplement - not taking, due to intolerance s/p iron infusion 12/17 and 12/24 Most recent Hgb 9.0 on 12/27 H and H pending this am ?? 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 History of (Z98.891):? Prior uterine scar: - Indication for primary CS: non-reassuring heart rate?? - Operative note reviewed: no adhesive disease noted during RCS, patient did get 1u pRBCs for low starting Hgb -Admit for repeat - Placenta anterior - (p) CBC, T&S - Diet: NPO - Pre-operative antibiotics: 2g Ancef - Surgical consent on chart - 2 units pRBC to be placed on hold if low H and H - PPBC: salpingectomy ?? Request for sterilization (Z30.2):? [x] s/p sterilization counseling (x) [facility] [employer] consents signed 12/20, copies given to pt Patient requests partial salpingectomy 02/01: Patient expressed that she declines salpingectomy and she would prefer partial salpingectomy or tubal ligation. Discussed risks and benefits of each procedure. Pt had a friend who had a total salpingectomy and she had her periods for 6 months and she does not want that to happen to her. Discussed that her period shouldn't change after salpingectomy but it would be her choice. She still requests partial salpingectomy. Note for day of section ?? On day of admission, counseled patient extensively about risk reducing nature of complete salpingectomy for epithelial ovarian cancer. Discussed lack of connection between presence/absence of tubes and prolonged menstrual bleeding. Patient is agreeable to proceeding with salpingectomy NOT tubal ligation ?? Superficial thrombophlebitis in (O22.20):? Right upper extremity - Dx in ED 12/27 following 2nd iron infusion Hematology consulted: - Lovenox 40 mg daily for 2 weeks (started 12/27) - Plan for repeat ultrasound and then evaluate for??Lovenox PRN [p] f/u RUE US ordered per heme to f/u - pt missed her appointment and never rescheduled?? OB History History?(2,0,2,2)? # 1 ?Baby 1 ?Outcome Date:??01/29/2011?Outcome or Result:??, low transverse ?Gest Age:??41 weeks 2 days ? Outcome:??Live ? Sex:??Male?Wt:?2410 g ? Complications:??Meconium; severe variable and late decelerations ?Anesthesia Type:??Epidural ? Labor:??No ?Javier Labor:??12 hr ?Name of Father/Guardian of [place]:?Hospital:??[facility] ?? # 2?Marked as Sensitive ?Baby 1 ?Outcome Date:??2014 ?Outcome or Result:??Therapeutic , surgical ?Gest Age:??-- ? Outcome:? Sex:??-- ?? # 3 ?Baby 1 ?Outcome Date:??04/17/2017?Outcome or Result:?Gest Age:??39 weeks 3 days ? Outcome:??Live ? Sex:??Male?Wt:?3724 g ?? # 4?Marked as Sensitive ?Baby 1 ?Outcome Date:??2019 ?Outcome or Result:??Therapeutic , surgical ?Gest Age:??Unknown ? Outcome:? Sex:??-- Labs Labs Labs & Tests Antibody Screen: Negative (07/25/22) Chlamydia Trachomatis Amplified Probe: NEGATIVE (12/05/22) Creatinine-Blood: 0.5 mg/dL (12/27/22) Glucose 50 Gm, +60 Minutes: 114 mg/dL (11/20/22) Hct:??30.1 %??Low (12/27/22) Hepatitis B Surface Antigen: NEGATIVE (07/25/22) Hepatitis C Ab: NEGATIVE (07/25/22) Hgb:??9 Gm/dL??Low (12/27/22) HIV 4th Generation Ab-Ag Result: NEGATIVE (07/25/22) RPR Titer Result: NOT INDICATED (11/20/22) Rubella IgG Ab: POSITIVE (07/25/22) Syphilis Screen by MIGUEL ANGEL: NEGATIVE (11/20/22) Urine Culture: Urine Culture (09/05/22) Problem List Active Active Problem List : (Freetext) Anemia during : (Medical) Anxiety: (Medical) Declines (vaginal after ) trial: (Medical) Depression: (Medical) GBS bacteriuria: (Medical) History of : (Medical) HSV infection: (Medical) Obese class I: (Medical) : (Obstetric) (05/05/22) : (Medical) Request for sterilization: (Medical) Superficial thrombophlebitis in : (Medical) Procedure/Surgical History Abdominoplasty: 2020 primary section: 01/29/11 Home Medications Acyclovir: 800 mg = 1 tablet, By Mouth, 2 times a day Doxylamine: 25 mg = 1 tablet, By Mouth, Daily at bedtime, PRN (for sleep) Fluconazole: 150 mg = 1 tablet, By Mouth, Once Sertraline: 50 mg = 1 tablet, By Mouth, Daily Allergies NKA Social History Alcohol Use: Never. Electronic Cigarette/Vaping Electronic Cigarette Use: Never. 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 Exercise Self assessment: Poor condition. Home/Environment Living [...] of colon Pat. Grandmother: Diabetes mellitus Plan OB Plan Circumcision Plan: None (02/11/23) Infant Feeding Plan: Breast milk & Formula (02/11/23) Patient Requests: It's a Boy! Elvin ANGEL (02/11/23) Hospital Progress note * Albina Butler RN: PERFORM, SIGN, VERIFY Event Display: Progress Note Hospital Authored Date: [id number] Patient: CAYDEN STERLING Age: 27 years Sex: Female : 1995 Associated Diagnoses: None Author: Albina Butler RN Patient discharged home. Discharge instructions given, patient verbalized understanding. * Albina Butler RN: PERFORM, SIGN, VERIFY Event Display: Progress Note Hospital Authored Date: [id number] Patient: CAYDEN STERLING Age: 27 years Sex: Female : 1995 Associated Diagnoses: None Author: Carrie MALLORY, Albina Patient 3 days s/p c/s. Abdomen distented, tender. Pt c/o pain /10, and cramps. Patient voiding, passing gas, no BM yet. Fundus firm, at umbilicus level.. Mild flow. Incision well approximated, no drainage noted, steri strips in place. Anticipating d/c Findings Problem Related to Alteration in Comfort : Alteration in Comfort/new 02/14/2023 9:00 EDT Alteration in Comfort Related to Surgery, Other: c/s Goals & Outcomes: Comfort Pt will report acceptable level of comfort & pain control, Pt will state importance of adhering to pain strategy regime, Pt will demonstrate necessary skills to manage pain, Non-verbal indicators will indicate comfort/pain control Interventions Implemented: Comfort Assess pain using appropriate pain scale/tools, Assess aggravating factors & prevent them accordingly, Assess alleviating factors & promote them accordingly BH Goals/Interventions, Comfort Yes Comfort, Problem Start 02/12/2023 22:00 Reviewed plan with, Comfort Patient Patient Progression, Comfort Pt progressing according to plan Comfort, Problem Ongoing Yes . * Junior Olson MD: PERFORM Event Display: Progress Note Hospital Authored Date: [id number] Patient: ??CAYDEN STERLING ? Age:??27 Years?Sex:??Female?:??1995?? Subjective Patient is reporting significant pain that worsened when she started . Her lochia is light. She is ambulating, voiding spontaneously s/p harrison, tolerating regular diet and passing flatus. Other than pain she has no concerns Review of Systems as per HPI Physical Exam Vitals & Measurements T:??98?F?? HR:??76??(Peripheral)?? RR:??18?? BP:??112/77?? SpO2:??99%?? HT:??148??cm?? WT:??74.4??kg?? BMI:??33.97?? Constitutional:??No acute distress, resting comfortably. Respiratory:??Normal work of breathing. Abdomen/GI:??Soft, non-distended, no guarding, no rebound tenderness.??Fundus firm +4 above umbilicusumbilicus with mild tenderness. Low transverse incision covered with steri strips, appears clean, dry and in tact. Gynecologic:??Minimal lochia. Extremities:??No calf tenderness or edema. Skin:??No rash or jaundice. Neurological/Psychiatric:??Mood and affect congruent and stable. Assessment/Plan Assessment:??27yo G5 now P3 POD2 from uncomplicated repeat CS and salpingectomy. QBL 436. Patient is meeting appropriate postop milestones at this time. Will consider switching patient to dilaudid for improved pain relief. Patient is afebrile overnight with minimal bleeding, reassuring that pain isworse with as this points to cramping in a multiparous patient as etiology, however can consider imaging if pain is not improved with alternative pain regimen ?? care following delivery (Z39.2):??- Continue routine care - Diet: Regular - Pain control: Ibuprofen & Tylenol, Oxycodone prn - Simethicone, docusate - Encourage ambulation, SCDs when not ambulating - s/p Harrison, monitor urine output - Lovenox for DVT prophylaxis to start today - PPBC: tubal done - Feeding plan: - Circumcision: declined ?? Superficial thrombophlebitis in (O22.20):??prophylactic lovenox RUE US showing thrombus has decreased in size from prior study currently no symptoms ?? OB Summary : 5 . Baby A - Weight: 3.4 kg Baby A - Date, Time of : 02/12/23 12:21:00 Baby A - Gender: Male EGA at Documented Date, Time: 39W 1D Weight at Delivery Baby A - Delivery Type: , low transverse OB History History?(2,0,2,2)? # 1 ?Baby 1 ?Outcome Date:??01/29/2011?Outcome or Result:??, low transverse ?Gest Age:??41 weeks 2 days ? Outcome:??Live ? Sex:??Male?Wt:?2410 g ? Complications:??Meconium; severe variable and late decelerations ?Anesthesia Type:??Epidural ? Labor:??No ?Javier Labor:??12 hr ?Name of Father/Guardian of :?Hospital:??[facility] ?? # 2?Marked as Sensitive ?Baby 1 ?Outcome Date:??2014 ?Outcome or Result:??Therapeutic , surgical ?Gest Age:??-- ? Outcome:? Sex:??-- ?? # 3 ?Baby 1 ?Outcome Date:??04/17/2017?Outcome or Result:?Gest Age:??39 weeks 3 days ? Outcome:??Live ? Sex:??Male?Wt:?3724 g ?? # 4?Marked as Sensitive ?Baby 1 ?Outcome Date:??2020 ?Outcome or Result:??Therapeutic , surgical ?Gest Age:??Unknown ? Outcome:? Sex:??-- Active Problem List Active Problem List : (Freetext) Anemia during : (Medical) Anxiety: (Medical) Declines (vaginal after ) trial: (Medical) Depression: (Medical) GBS bacteriuria: (Medical) History of : (Medical) HSV infection: (Medical) Obese class I: (Medical) : (Obstetric) (05/05/22) : (Medical) Request for sterilization: (Medical) Superficial thrombophlebitis in : (Medical) Home Medications Acetaminophen: 1,300 mg = 2 tablet, By Mouth, Every 8 hours, PRN (as needed for pain) Docusate: 100 mg = 1 capsule, By Mouth, 2 times a day, PRN (as needed for constipation) Doxylamine: 25 mg = 1 tablet, By Mouth, Daily at bedtime, PRN (for sleep) Ibuprofen: 800 mg = 1 tablet, By Mouth, Every 6 hours Oxycodone: 5 mg = 1 capsule, By Mouth, Every 6 hours, PRN (for pain) Sertraline: 50 mg = 1 tablet, By Mouth, Daily Simethicone: 80 mg = 1 tablet, By Mouth, 3 times a day after meals and bedtime Medications Medications (20) Active SCHEDULED: (7) Acetaminophen 325 mg Tablet (Acetaminophen Tablet) ??650 mg, By Mouth, Every 4 hours Docusate Sodium 100 mg Capsule (Docusate Sodium Capsule) ??100 mg 1 capsule, By Mouth, 2 times a day Enoxaparin 40 mg Inj (Enoxaparin Inj) ??40 mg 0.4 mL, Subcutaneous Injection, Every 24 hours Famotidine 20 mg Tablet (Famotidine Tablet) ??20 mg, By Mouth, 2 times a day Ibuprofen 800 mg Tablet (Ibuprofen Tablet) ??800 mg, By Mouth, Every 8 hours Lidocaine 5% Topical Patch (Lidocaine 5% Patch) ??2 each, Topically, Daily Remove Patch (Remove Lidocaine Patch) ??2 each, Topically, Daily at bedtime CONTINUOUS: (1) Lactated Ringers (1000 mL) Cont IV 1,000 mL (Lactated Ringers 1,000 mL) ??1,000 mL, IV Infusion, 125 mL/hr PRN: (12) diphenhydrAMINE 25 mg Tablet (DiphenhydrAMINE Tablet) ??25 mg, By Mouth, Every 4 hours diphenhydrAMINE 50 mg/mL Inj (DiphenhydrAMINE Inj) ??25 mg 0.5 mL, IV Push, Once diphenhydrAMINE 50 mg/mL Inj (DiphenhydrAMINE Inj) ??12.5 mg 0.25 mL, IV Push, Every 2 hours FENTanyl 50 mcg/mL Inj (2 mL) (FENTanyl Inj) ??25 mcg 0.5 mL, IV Push, Every 5 minutes Metoclopramide 5 mg/mL Inj (2 mL) (Metoclopramide Inj) ??10 mg, IV Push, Every 6 hours nalOXONE ??400mcg/mL Inj (nalOXONE Inj) ??0.1 mg 0.25 mL, IV Push Slowly, Every 15 minutes Ondansetron 2mg/mL Inj (2mL Vial) (Ondansetron Inj) ??4 mg, IV Push, Once Ondansetron 4 mg ODT (Ondansetron Tablet) ??4 mg, By Mouth, Every 4 hours OxyCODONE 5 mg IR Tablet (oxyCODONE 5 mg oral tablet) ??5 mg, By Mouth, Every 6 hours OxyCODONE 5 mg IR Tablet (OxyCODONE IR Tablet) ??5 mg, By Mouth, Every 3 hours PROCHLORperazine 5mg/ml Inj (PROCHLORperazine Inj) ??5 mg 1 mL, IV Push, Every 6 hours Simethicone 80 mg Chewable Tablet (Simethicone Tablet) ??80 mg, Chew, 3 times a day * Paulo SCHNEIDER, Nury Freeman: PERFORM Event Display: Progress Note Hospital Authored Date: [id number] P Seen and examined earlier this morning but was called to a delivery and a C/S before I could document.? Some issues with pain control,?? Changed to dilaudid.?? Have since heard that she would like to be discharge.?? Agree with discharge.?? PBs Note * Bidyuk RN, Albina: PERFORM Event Display: Discharge/Transfer Note Hospital Authored Date: [id number] Nursing Discharge Note Entered On: 02/14/2023 13:07 EDT Performed On: 02/14/2023 13:07 EDT by Albina Butler RN Nursing Discharge Note 2 Discharge Time : 02/14/2023 13:05 EDT Discharge Level of Care at Discharge : Home/Fdc/Foster Care Telecasting Technician Utilized : No Patient Left Unit Via : Ambulatory Patient Accompanied Off Unit with : Significant other DC Instructions Provided & Signed by Pt : Yes Patient Understands D/C Instructions : Yes Verbalized Understanding of D/C Plan By : Patient Patient Instructions Discharge Signed : Yes Did Pt have Specialty Bed or Wound Vac : No Albina Butler RN - 02/14/2023 13:07 EDT * Junior Olson MD: PERFORM Event Display: Discharge/Transfer Note Hospital Authored Date: [id number] Patient: ??CAYDEN STERLING ? Age:??27 Years?Sex:??Female?:??1995?? Admit Date Admission Date: 02/12/2023 Discharge Date 02/14/23 OB Reason for Admission OB Reason for Admission?? No qualifying data available. [facility] Course 27 year old at 39 and 1 presenting for scheduled repeat section + salpingectomy. Uncomplicated CS, QBL 436. Postrpartum, she had persistent RUE pain for which an ultrasound was obtainedrevealing a nonocclusive thrombus decreased in size from a previous study. Got prophylactic lovenoxpostpartum. Remainder of course was uncomplicated. On day of discharge: Patient is resting comfortably and feeling well. States her pain is well controlled with PO pain meds. Her lochia is like a medium period. She is ambulating, voiding spontaneously, and tolerating regular diet. Has passed flatus. Bonding with baby appropriately. ?? Denies fevers, chills, headache, dizziness, vision changes, chest pain, shortness of breath, RUQpain, nausea, vomiting, and calf tenderness. ?Patient would like to be discharged today.?Discussed self care, and depression. Patient was counseled on warning signs for calling or returning to care including but not limited to fever of 100.4 orgreater, heavy vaginal bleeding, foul-smelling vaginal discharge, difficulty or burning with urination, nausea and vomiting with inability to tolerate food, pain not controlled by medications, shortness of breath or chest pain, and depression. Counseled to place nothing in the vagina in the next 4-6wks. Patient verbalized understanding. ? Objective/Physical Exam on Day of Discharge Vitals & Measurements T:??98.2?F?? HR:??72??(Peripheral)?? RR:??18?? BP:??107/67?? SpO2:??100%?? HT:??148??cm?? WT:??74.4??kg?? BMI:??33.97?? see morning rounding note Assessment/Plan/Discharge Diagnosis Assessment:??27yo G5 now P3 POD2 from uncomplicated repeat CS and salpingectomy. QBL 436. Patient is meeting appropriate postop milestones at this time. Pain improved after dilaudid. Appropriate for dc home today ?? care following delivery (Z39.2):??- Continue routine care - Diet: Regular - Pain control: Ibuprofen & Tylenol, dilaudid prn - Simethicone, docusate - Encourage ambulation - PPBC: tubal done - Feeding plan: - Circumcision: declined ?? Superficial thrombophlebitis in (O22.20):??prophylactic lovenox while inpatient not going home on lovenox follow with PCP RUE showing thrombus has decreased in size from prior study currently no symptoms ?? Future Appointments Saturday 9:40 AM EDT ?? With: Sigrid BRAMBILA, TUBE INSPECTOR, Elizabeth Sloan Where: [facility] - Patrol Driver [address] [place] [address]- Status: Pending Saturday 10:45 AM EST ?? Where: [facility] [address] [place] [address]- Status: Pending Delivery Summary Delivery Summary Maternal Information ??Delivery Information ?Gestational Age at Delivery: ??39W 1D ?Blood Loss - Quantitative: ??436 mL ? Baby A ??Delivery Information ?Delivery Type: ??, low transverse ?Reason for : ??Elective repeat ? Priority: ??Scheduled ?Date, Time of : ??02/12/23 12:21:00 ?Delayed Cord Clamping: ??Yes ?Placenta Delivery Date/Time: ??02/12/23 12:24:00 ?? Information ? Outcome: ??Live ? Weight: ??3.400 kg ? Score 1 minute: ??8 ? Score 5 minute: ??9 ? Score 10 minute: ??9 ?Transferred To: ?? Care area with Family ?Gender: ??Male ? Discharge Medications ???Acetaminophen (Tylenol 8 Hour 650 mg oral tablet, extended release)???Docusate (docusate sodium 100 mg oral capsule)???Doxylamine (Unisom 25 mg oral tablet)???Ibuprofen (ibuprofen 800 mg oral tablet)???Oxycodone (oxyCODONE 5 mg oral capsule)???Sertraline (sertraline 50 mg oral tablet)???Simethicone (simethicone 80 mg oral tablet, chewable) Stop taking these medications ???Acyclovir (acyclovir 800 mg oral tablet)???Fluconazole (fluconazole 150 mg oral tablet) Immunizations during Hospitalization Vaccine Date Status tetanus/diphtheria/pertussis, acel(Tdap) 11/20/2022 Given SARS-CoV-2 (COVID-19) mRNA-1273 vaccine 10/11/2021 Recorded SARS-CoV-2 (COVID-19) mRNA-1273 vaccine 02/08/2021 Recorded SARS-CoV-2 (COVID-19) mRNA-1273 vaccine 12/28/2020 Recorded influenza virus vaccine, inactivated 02/22/2017 Given tetanus/diphtheria/pertussis, acel(Tdap) 02/22/2017 Given Fluarix (oldterm) 02/11/2012 Given Comments : vis given 11/12/11 Human Papillomavirus Vaccine 02/11/2012 Given Comments : VIS 07/04/2011 Human Papillomavirus Vaccine 07/06/2011 Given Comments : vis 08/09/09 Human Papillomavirus Vaccine 03/08/2011 Given Comments : vis 08/09/09 Menactra (oldterm) 03/08/2011 Given Comments : vis 02/23/11 influenza virus vaccine, inactivated 03/08/2011 Given Comments : vis 12/2010 tetanus/diphtheria/pertussis, acel(Tdap) 02/02/2011 Given Comments : VIS given influenza virus vaccine, inactivated 06/30/2010 Given Comments : vis 12/20/09 Feeding Method [place] Feeding Method: Formula (02/12/23 15:31:00) Patient Instructions Discharge: home, Call your the office with any concerns including:?? Heavy vaginal bleeding?? Fever of 100.4 or greater Foul-smelling vaginal discharge Difficulty or burning with urination?? Nausea and vomiting with inability to tolerate food,?? Pain not controlled by your prescribed medications Shortness of breath or chest pain. Swelling of the extremities. ?? General Instructions: - Avoid lifting anything 15 lbs or greater until cleared by doctor. - Stairs are OK but avoid multiple trips/ skipping steps and go slowly. - Walk as often as you are able. - Do not put anything in the vagina. No intercourse, tampons, or douching - Continue your stool softeners (examples: colace/docusate, senna, miralax) - Shower as usual. Avoid tubs/ soaking/ pools. * Carrie MALLORY, Albina: PERFORM Event Display: Patient Education/Instruction Authored Date: Inpatient Adult Discharge Instructions [address] [address] Name: CAYDEN ASHER : 1995 Visit: 02/12/2023 10:05:00 Current Date: 02/14/2023 12:30 Account: [id number] Inpatient Adult Discharge Instructions We would like [...] and their families. Surveys are administered by [employer], [employer]. ?? If further treatment with your primary care physician or another doctor is recommended, it is important for you to keep the appointment. Call your primary care physician or return to the Emergency Department immediately if your condition worsens, fails to improve, or new symptoms develop. If you need to find a doctor, you can call [facility] Link for a referral at [phone] or toll free at [phone] or log in to [email or web address] ?? [facility], in keeping with [facility] guidance, no longer requires face masks for staff, patientsor visitors in most situations. Similiar to time spent indoors at other locations, there is the chance that you were exposed to repiratory viruses during your time with us (such as flu or COVID-19). If you develop symptoms concerning for a viral respiratory infection, please seek testing (and treatment if indicated) from your medical provider or home test kit. ?? You can view and manage your care through the patient portal or by using a health care jeff of your choosing. All My Data is a website that allows you to securely view your medical information including your hospital discharge summary, office visit summaries, medications and follow-up visits. You can also request appointments, renew medications, and request access to your medical information using a health care jeff of your choosing, or just ask a question. You can enroll at [email or web address] or register during your next office visit. You have been discharged from [facility], Patient Care Unit: WIN2. If you have any questions regarding these instructions after you leave, please call us and we will be happy to assist you. [facility] Your Care Team Attending Physician Asia SCHNEIDER, Warren Consulting Providers Asia SCHNEIDER, Warren Discharging Providers Junior Olson MD Reason for Admission KELOID SCAR REMOVAL Your Diagnosis Anemia during HSV infection Request for sterilization History of Superficial thrombophlebitis in care following delivery Tests Performed Below is a partial list of the tests performed during your hospitalization. You may have had other tests and procedures not included in this list. Please discuss all test results with your provider. CBC Type and Screen Doppler Ext Upper Venous Right (US) Primary Care Provider Benson SCHNEIDER, Zenaida Covarrubias Advance Directive Health Care Proxy on File No Discharge Vitals Temperature: 98.2 DegF Height: 148 cm Pulse Rate: 72 bpm Weight: 74.4 kg Respiratory Rate: 18 br/min Body Mass Index:??33.97 kg/m2??Critical Systolic Blood Pressure: 107 mm Hg Body surface area: 1.75 Diastolic Blood Pressure: 67 mm Hg ?? Oxygen Saturation: 100 % ?? Studies Pending All tests and labs ordered during this hospital stay have been completed unless listed below. Please discuss all pending results with your provider listed above in these instructions. ?? COVID-19 (2019 Novel Coronavirus) PCR Pathology Tissue Request () RBCs on Hold What to do next Instructions From Your Doctor Discharge: home, Call your the office with any concerns including:?? Heavy vaginal bleeding?? Fever of 100.4 or greater Foul-smelling vaginal discharge Difficulty or burning with urination?? Nausea and vomiting with inability to tolerate food,?? Pain not controlled by your prescribed medications Shortness of breath or chest pain. Swelling of the extremities. ?? General Instructions: - Avoid lifting anything 15 lbs or greater until cleared by doctor. - Stairs are OK but avoid multiple trips/ skipping steps and go slowly. - Walk as often as you are able. - Do not put anything in the vagina. No intercourse, tampons, or douching - Continue your stool softeners (examples: colace/docusate, senna, miralax) - Shower as usual. Avoid tubs/ soaking/ pools. Discharge Orders Scheduled Follow-Up Appointments Saturday 9:40 AM EDT ?? With: Sigrid BRAMBILA, TAMMY, Elizabeth Sloan Where: [facility] - Patrol Driver [address] [place] [id number]- Status: Pending Saturday 10:45 AM EST ?? Where: [facility] [address] [place] [address]- Status: Pending You Need to Schedule the Following Appointments Follow Up with??Please, keep your scheduled appointments Discharge Medications CAYDEN STERLING :1995 Visit Date:02/12/2023 Medications: Please continue your medications until treatment is completed or stopped by your provider. Medications not listed below should be discontinued. Discuss any questions related to medications with your provider. What How Much When Instructions Next Dose New Acetaminophen (Tylenol 8 Hour 650 mg oral tablet, extended release) 2 tab(s) Oral Every 8 hours as needed for as needed for pain Duration: 7 Days Pickup at [facility] #[id number] today 5pm New Docusate (docusate sodium 100 mg oral capsule) 1 capsule Oral Twice a day as needed for as needed for constipation Pickup at [facility] Rx #[id number] today 9pm New Docusate (docusate sodium 100 mg oral capsule) 1 capsule Oral Twice a day as needed for as needed for constipation Pickup at [facility] #[id number] New Hydromorphone (Dilaudid 2 mg oral tablet) 1 tab(s) Oral Every 4 hours as needed for as needed for pain Duration: 7 Days Pickup at [facility] #[id number] today 4pm New Ibuprofen (ibuprofen 800 mg oral tablet) 1 tab(s) Oral Every 6 hours Duration: 7 Days Pickup at [facility] #[id number] today 2pm New Oxycodone (oxyCODONE 5 mg oral capsule) 1 capsule Oral Every 6 hours as needed for for pain Duration: 5 Days Pickup at [facility] #[id number] anytime New Simethicone (simethicone 80 mg oral tablet, chewable) 1 tab(s) Oral 3 times a day after meals and bedtime Duration: 7 Days Pickup at [facility] #[id number] anytime New Simethicone (simethicone 80 mg oral tablet, chewable) 1 tab(s) Oral 3 times a day after meals and bedtime Duration: 7 Days Pickup at [facility] #[id number] Unchanged Doxylamine (Unisom 25 mg oral tablet) 1 tab(s) Oral Daily at Bedtime as needed for for sleep Unchanged Sertraline (sertraline 50 mg oral tablet) 1 tab(s) Oral Daily Pharmacy Information [id number]: [address], [place] [id number] [phone] ?? What How Much When Comments Stop Taking Acyclovir (acyclovir 800 mg oral tablet) 1 tab(s) Oral Twice a day Stop Taking Fluconazole (fluconazole 150 mg oral tablet) 1 tab(s) Oral Once Test Results Below is a partial list of the most recent Laboratory test results done prior to this discharge. You may have had other tests and procedures not included in this list. Please discuss all test resultswith your provider. RBC Available - RE (02/12/2023) RBC Unit ID - [id number] (02/12/2023) CBC (02/13/2023) ???WBC - 8.2 k/mm3???RBC - 4.14 m/mm3???Hgb - 9.9 Gm/dL???Hct - 32.5 %???MCV - 78.5 femtoliters???MCH - 23.9 pg???MCHC - 30.5 g/dL???Platelet Count - 129 k/mm3???RDW-SD - 49.4 femtoliters???MPV - NOTMEASURED???Nucleated RBC (Automated) - 0.0 #/100 WBC'S???Abs. NRBC - 0.0 k/mm3 Type and Screen (02/12/2023) ???Blood Type - O Positive???Antibody Screen - Negative Allergies (NKA means No Known Allergies) NKA Problems Active Problems??(13) Anemia during ?? Anxiety?? Declines (vaginal after ) trial?? Depression?? GBS bacteriuria?? History of ?? HSV infection?? Obese class I? primary section 01/2011?? Request for sterilization?? Superficial thrombophlebitis in ?? Education Materials Below is the list of Educational Leaflet Providered with your Discharge Instructions. Valuables and Belongings I fully understand and agree that [facility] accepts no responsibility for all my [...] encouraged to send valuables and belongings home. ?? Review of Valuable and Belonging List: With patient Date for Pt to Sign Valuables/Belongings: 02/12/23 11:05:00 ?? Other Discharge Information ? Pulmonary Rehab Status?? [...] are strongly encouraged to quit. Please call [facility] [employer] Link at [phone] or [phone] ([phone]) or log in to [email or web address] for referrals to smoking cessation programs. ?? 988 Suicide & Crisis Lifeline is available 03/12 if you or someone you know needs to find a reason to keep living. By calling 988 you'll be connected to a skilled, trained counselor at a crisis center in your area. INPATIENT DISCHARGE INSTRUCTIONS SIGNATURE PAGE CAYDEN STERLING Location:[facility] Registration Date and Time:02/12/2023 10:05 EDT Primary Care Physician: Benson SCHNEIDER, Zenaida Covarrubias, Attending Physician: Warren Betancourt MD, I CAYDEN STERLING, have received the above patient education materials/instructions and have verbalized understanding. If ambulance or transport services are being used I further acknowledge being given a choice of service. ?? If you need to contact me, please call me at this number: . Patient/Sfdc Technical Architect Name: Patient/Sfdc Technical Architect Signature: Relationship to Patient: Witness Name/Signature: Date: * Albina Butler RN: PERFORM, SIGN, VERIFY Event Display: Patient Education Handout Authored Date: * Albina Butler RN: PERFORM Event Display: Patient Education Leaflets Authored Date: OB PP [facility]- Discharge Instructions ?? 209 Discharge Care Instructions for the New Mom and Baby Please take a few moments to read through these helpful instructions before you leave the hospital.?? Your nurse will be glad to answer any questions you may have.?? You can also find this and more information throughout the purple Becoming a Family booklet, [facility] New Beginnings Guide and the Consultation Services Guide given to you after the of your baby.?? You may also phone our nurses stations if you have further questions.?? [facility]:?? First Floor ([phone]), Second Floor ([phone]).?? Please call your provider if you have any questions or concerns?? before your next appointment. For ongoing support please ???Like?? us on our Facebook page ???[facility] New Beginnings?? andsign up for our email newsletter at [email or web address].?? News and information will besent to you until your baby???s third birthday. Instructions for the New Mother Activity: For the next 2 weeks at home ??? no heavy lifting, avoid unnecessary stair climbing, and no driving(especially if you are taking medicine that may make you sleepy or feel that you are sleep deprived).?? For the next 4-6 weeks - no tampons, no douches, no sexual intercourse. Use your samina bottle to rinse your perineum until your vaginal flow stops.?? If you have stitches in your bottom, they generally dissolve within 7-10 days.?? Apply Tucks/witch jessica pads until your soreness subsides.?? Use your bathroom at home every 3 to 4 hours, rinse, and change your pads. Warm showers feel great on achy muscles, sore backs and sore bottoms. Exercise: Walking is the best form of exercise.?? Wait until your follow up appointment with your provider in4-6 weeks before engaging in more strenuous activity. Diet: Drink plenty of fluids to avoid constipation and to help support your recovery. Eat plenty of iron rich foods such as red meat, iron fortified cereals like Total and Cream of Wheat, raisins, prunes, greens and spinach.?? These will help to build your blood count back up as all women lose some blood after delivery.?? Also add foods rich in Vitamin C such as strawberries, oranges, papayas, kale and hood peppers. Continue to take your vitamins if you are .?? If you are not follow the instructions of your provider.?? If you were prescribed iron supplements such as ferrous sulfate, it is important to continue these until your doctor or residential aide tells you to stop. Breast Care for Nursing Mothers: Wear a comfortable fitting, supportive nursing bra.?? An underwire bra is not recommended. Express drops of breast milk and rub over your nipples and areola (brown area) before and after each feeding to protect and heal sensitive skin and then air dry your nipples.?? If you are experiencing any soreness, you may purchase nipple cream such as TenderCare or Lansinoh.?? Use it in the following manner:?? finish your feeding or pumping session, self-express colostrum onto your nipple and air dry, apply the nipple cream to the nipple and areola.?? Use only small amounts for best results. If you are having difficulty getting the baby to latch onto the breast due to swelling of the areola, try applying pressure with your fingers for a couple of minutes above and below your nipple and walk your fingers outward softening the area and pushing the swelling away.?? This technique is knownas reverse pressure softening.?? For demonstrations of this and other techniques such as the [place] Hand Expression technique, please refer to the resources section of the Consultation Services Guide that you received from services. When your milk first comes in, usually within 3 to 5 days after delivery, you may experience engorgement.?? Your breasts may become swollen and very tender.?? Cold compresses work great to help with discomfort and reduce swelling. It will get better in a couple of days.?? Continue to nurse your baby frequently.?? Call [facility]???s Consultation Service at [phone], press 1 to schedule an outpatient appointment or press 3 and a planning consultant will return your call that day or the next if you call after 3pm. Breast Care for Bottle Feeding Mothers: Engorgement may occur within the first week after delivery.?? Your breasts may become hard and verytender.?? A cool compress of cleaned raw green cabbage leaves applied to the breast and changed as leaves wilt has been proven helpful for many women.?? Ice packs or frozen bags of peas also work nicely to ease the discomfort.?? The soreness will only last a couple of days. Keep your back turned to the water while showering to decrease breast stimulation. Wear a snug fitting bra such as a sports bra. Incision Care Following Tubal or Section: You may shower as directed by your doctor or residential aide.?? Pat your incision dry with a clean towel.??You will not need a bandage after the first day. Call your doctor or residential aide with any signs of infection such as a hard, hot swollen tender incision, especially if the skin around the incision looks pink or red.?? Yellow drainage with an odor may also be a sign of infection to report. Call your doctor or residential aide if the incision begins to separate. If you have steri-strips on the incision, they will likely fall off in the first week.?? If they have not fallen off by 10 days after delivery, you may remove them. Control: Your doctor or residential aide will discuss control methods with you when you are discharged from thespital or at your checkup.?? Be sure to let your provider know if you are . You had a Paragard IUD placed on .?? This control method is effective for 10 years. You had a Liletta placed on .?? This control method is effective for up to 5 years. You had a Nexplanon placed on .?? This control method is effective for up to 3 years. You received a Depo Provera injection on .?? This control method is effective as longas you repeat it every 3 months.?? Schedule your next dose before . You have a prescription for control pills .?? It is important to take a pill everyday at around the same time of day for effective control protection.?? Pain Management: Cramping after is common and increases in strength with each baby you have.?? If you experience painful cramps, and have no allergies to acetaminophen (Tylenol) or ibuprofen (Motrin), you may continue to take these medications as you did in the hospital.?? Ibuprofen is also helpful with back aches following epidurals, perineal pain following a vaginal delivery, and moderate incisional pain after a section or a tubal ligation.?? If you experience gas distention, especially after surgery, you may take an over the counter medication called simethicone.?? Take these chewable tablets 4 times a day as needed and directed on the package.?? Keep moving.?? Walking or rocking in a chair, will help to move the gas along.?? Matthew tea made with heated matthew iris (instead of water) and a tea bag, stirred to dissolve carbonation (bubbles) is a helpful drink to soothe a gassy stomach. Warning Signs of a Problem to Notify Your Doctor or Aircraft Refueler of: Heavy vaginal bleeding ??? which is soaking a pad every hour with bright red blood. Passing blood clots the size of an egg or larger. An incision that is not healing. A temperature greater than or equal to 100.4 especially if accompanied by any of the following symptoms ??? painful, frequent urination; extreme back or flank pain; lower belly pain with a foul smellto your vaginal flow; a red hard hot area on your breast.?? Severe headache that does not go away after taking acetaminophen or ibuprofen.?? A headache that changes your vision, including seeing spots or blurring. Right sided upper abdominal pain along the rib cage area. Pain in your legs that is warm and tender to the touch. depression signs may include ??? loss of interest in your baby, weepiness, difficulty focusing, weight loss with no appetite, exhaustion, feeling overwhelmed or anxious, feelings of despair, or thoughts of harming yourself or your baby.?? These symptoms are important and should be discussed with your doctor or residential aide. depression may develop over a period of time and needs prompt medical attention.?? Do not suffer in silence.?? In both the Becoming a Family booklet and [facility] Guide there is a screening tool used to identify women at risk, called the [place] Scale which you have taken in the office prior to delivery and again during your hospital s stevo.?? Three to four weeks after your delivery, and before your check with your provider, take this test and share your results with your provider.?? Be sure to mention any score of 10 or more.?? Many women, and even some partners, may experience the ???baby blues?? .?? This is a state of feeling overwhelmed and weepy.?? Discomfort from childbirth, hormonal changes, exhaustion, changes to your body and lifestyle are a few of the things that contribute to the highs and lows new parents go through.?? Don???t be afraid to ask your partner or family and friends for some help at home so you can get some rest and a few minutes to yourself.?? The blues will quickly pass. Personal Safety: Every person has the right to feel safe at home and live free from physical or emotional harm.?? Ifyou have suffered mental or physical abuse at home, you are not alone.?? There is help.?? Please call HOTLINE or the [employer] Program at [phone]. CARE Bathing: Give your baby a sponge bath until the cord falls off in about 1-3 weeks.?? It is not necessary to bathe your baby every day, usually every few days is sufficient. ??Keep the cord area dry.?? Some baby girls will have a small bloody vaginal discharge. No need to worry as this is normal. It is not necessary to use lotions on the baby???s skin.?? Powders and oils are not recommended.?? Babies often get rash on their skin which comes and goes quickly and does not require any special care.?? Diaper rash can be treated with a zinc oxide preparation such as Desitin or Balmex diaper cream. Circumcision Care: Your nurse will teach you how to care for your baby???s circumcision depending on the type of circumcision your doctor or residential aide performed.?? Most circumcisions require A&D ointment for about 4-5 days.?? Be generous with the amount of A&D used as this will prevent the diaper from sticking when you go to change it. If a plastibell circumcision was done, the plastic ring around the penis will fall off in a week orso. Diapers: After the 1st??few days, the baby will start wetting more often.?? A breast fed baby will wet about6-8 times a day once mom???s milk comes in ??? usually day 4 or 5.?? This is a good sign that the baby is getting plenty to eat.?? You may notice an orangey-pink stain in the diaper which is normal for the first few days. The baby???s first bowel movements are sticky, black and tarry.?? As the baby starts to feed more often over the next couple of days, the stool will change to a seedy yellowish green color and eventually a loose mustard like stool for a breast fed baby and a more formed yellow stool for a bottle fed baby. your Baby: ??Congratulations on deciding to breastfeed your baby! You are providing your baby with the most nourishing food source on the planet, your breast milk.?? Cues such as rooting, suckling, licking and fussing may be telling you that your baby is ready to eat ??? and it is time to offer your breasts. The first weeks following the are a time for you and your baby to learn.?? The baby may be sleepy the first day after with 8 to 12 attempts ??? including 2 to 4 good feedings.?? Over the next couple of days the baby will become more wakeful, feed 8 to 12 times a day and have more wet and poopy diapers.?? Cluster feeding, especially during the evening/night time, is normal. ?? Listen for swallowing sounds and watch the baby as they become more relaxed at the breast ??? both good signs that the baby is getting a good amount of milk.?? Refrain from smoking or eating edible marijuana while you are . Even though marijuana is legal in the state of [place],??it is harmful for your baby.??It stays in breast milk for along period of time and THC can be found in the baby's urine for up to 3 weeks. Second hand smoke can also increase the risk??of Sudden Infant Syndrome / SIDS. ?? Nursing is wonderful but many moms and babies have some degree of difficulty with at first. Don???t give up!?? There are many resources available to help you overcome these temporary problems. Your income tax preparer wants to hear from you if you are having difficulties and can offermany helpful suggestions.?? Some offices have consultants on staff. [facility]???s Consultation Service is available 7 days a week, 8am to 3pm at [phone].?? Press 1 to schedule an outpatient appointment.?? Press 3 to leave a message for the sales support consultant, a planning consultant will return your call that day or the next if you call after 3pm. Support Groups ??? [facility] offers free gatherings for moms and babies weekly.?? All groups meet at the [facility] Women???s 2nd??floor, typically in the [facility] Conference Room, Saturday???s 1 to 2 pm.?? [employer] is a worldwide organization with local community support, mother to mother support.?? Information can be found at https://www.lllusa.org Formula Feeding your Baby: Formula fed babies should eat every 3 to 4 hours.?? Look for cues that your baby is ready ??? such as rooting and sucking, licking and fussing.?? At the baby???s stomach is small and may take 10-15ml of formula.?? Over the next few days the baby will become more wakeful and feed more frequently, gradually increasing the amounts of formula taken at a feeding.?? Your income tax preparer will provideinstructions on how to increase the amount.?? Refer to packaging for formula preparation directions, depending on the type of formula you purchase ??? powder, concentrate or ready to feed. Infant Safety: ALWAYS REMEMBER - BACK TO SLEEP! Babies sleep safest on their backs.?? Every sleep.?? Every time.?? Every nap. Babies need a firm sleep surface with a tight fitting bottom sheet.?? NO loose bedding.?? NO pillows.?? NO bumper pads or rolls.?? NO heavy or fluffy blankets. NO stuffed toys. It is not safe for your baby to sleep in your bed, in a chair, or on a sofa.?? Your baby should notsleep with you or anyone else. Car Seat: Always place your baby in a rear facing car seat in the backseat of the car. Car seat inserts that come with the car seat can be used as they are crash tested with the seat.?? You should not buy additional inserts.?? Dress the baby in a weather appropriate outfit.?? Avoid bulky clothing such as snowsuits or jackets as the baby may squirm in the seat, loosening the shoulder straps and come out of the top of the harness if you need to brake hard or are in an accident.?? Once the baby issecured in the seat you can cover your little one with a blanket if needed.?? If your baby was bornprematurely, follow the directions given to you.?? If you have not already done so, check to make sure your car seat is installed correctly. Check with your local Fire and Police Department to see if they offer car seat inspections at a location close to you. Babies Can Move: ?? Never leave your baby unattended on any surface, raised or flat, or while bathing.?? They can squirm, fall or hurt themselves.?? Always fasten the safety belt when using an infantseat or swing ??? as they may lean forward and fall. Good Handwashing is the number one way you can protect the baby from too?? many germs and prevent infection.?? When family and friends visit ask that they wash their hands before holding your baby.??Also avoid crowds the first month of your baby???s life to protect from colds and flus. Shaking a baby out of frustration can cause severe and lasting damage, even to a baby.?? If you feel you are becoming angry or overwhelmed, place the baby in a safe place and walk away.?? Call a friend or family member.?? If they are not able to offer immediate help call the Parental Stress Hotline at?? , an anonymous 03/12 source of help. Warning Signs to notify your income tax preparer of: Most babies develop a small amount of jaundice (a yellowish skin color) in the face and upper chest, by about 3 days of age.?? If the yellow color extends below the baby???s belly or if the baby is very sleepy and not feeding well, call your income tax preparer. A rectal temperature of 100.4F as it could be a sign of infection. Projectile vomiting that continues with each feeding could indicate reflux or a problem with the formula. Extreme sleepiness or very fussy. Cold symptoms with nasal stuffiness, especially if the baby is having difficulty feeding. Constipation with hard stools. Blue or dusky color, call 911. If Your Baby Needs to Remain in the Hospital: Please leave your baby???s ID bracelets on if your baby needs to remain in the hospital after you are discharged home. The phone number to NICU is [phone]. The phone number to [facility] is [phone]. The phone number to [facility] is [phone]. moms should pump every 2-3 hours or 8-12 times in 24 hours.?? If unable to place the baby to breast, if you are having difficulty getting the baby to latch on, or if the baby remains inthe hospital after you are discharged ??? bring the pumped milk to the hospital, labeled with name,date and time.?? Carry it in a small cooler or diaper bag with an ice pack and bring it the next time you visit your baby.?? Consultation Services is available if you need to rent or purchase a pump or products.?? Call and leave a message at [phone] ??? press 3 and a planning consultant will return your call that day or the next if you call after 3pm. ? * Hanh Chatterjee: PERFORM Event Display: Care Team Progress Note Authored Date: Patient: ??ASHERCAYDEN ? Age:??27 Years?Sex:??Female?:??1995?? Subjective Previous Experience ?Duration: 1-4 months ? Supply:??low ? Concerns: early??formula supplementation and pumping ? Reason for termination: mothers choice ?? Current Experience ? Plan:??Breast milk and formula ? Latch:??A few times ? Output: WNL ? Concerns: Infrequent stimulation ? Over feeding formula supplement (30-60 mL) ? Assessment/Plan Mother very concerned with having fever due to redness of skin. educated family on skin to skin for regulation and encouraged the mother to attempt everyfew hours. RN took temperature, WNL. ? Breast Milk and Formula Feeding Education The family has chosen to offer the baby both breast milk and formula educated the family on the importance of stimulating every 3 hours the first 2 weeks. educated on bottle use the first 3 weeks with regards to the mother's body making more milk and baby removing more at night. discussed the possibility of milk 'drying up' in early months if not enough stimulation is given the first 2 weeks. discussed the formula shortage with the family as well with an emphasis to support their plan but the importance of being prepared. ?? Hand expression of colostrum taught to family. Large??colostrum drops noted. Drops expressed directly into baby's mouth. ?? Assisted mother with latch demo. Baby was??recently fed??and not interested in feeding. Laid back position educated/demonstrated to show easy transition from the breast crawl. Football and cross cradle??position educated/demonstrated to show how the positions mimic one another. Baby's mouth was open and licked up expressed colostrum. Breast compressions taught to increase flow. ?[place] Expectations ?1-2 feeds/1??void?in first 24 hours, ? 8-10 feeds/ 4 voids/2-3 stool by day 4 when milk arrives, ? Feeds are not routine but balance out over 24 hours.? Sleepy behavior during the day ? Frustrated and cluster feeding throughout the night ?If spitting up amniotic fluid, spoon feeding can supplement??the feeds ? Skin to Skin helps engage and stimulate our to help them identify their own hunger ? [place]'s hands demonstrate their needs?(Fists=hunger) ?(Open hands=satiated) ? (Palms out=disengage) ? [place]'s body demonstrate their needs ? (Straightening legs/arching back= belly issues) ? (Pushing away with head= Move hand on back of head) ?? OB Summary : 5 . Baby A - Weight: 3.4 kg Baby A - Date, Time of : 02/12/23 12:21:00 Baby A - Gender: Male EGA at Documented Date, Time: 39W 1D Weight at Delivery Baby A - Delivery Type: , low transverse OB History History?(2,0,2,2)? # 1 ?Baby 1 ?Outcome Date:??01/29/2011?Outcome or Result:??, low transverse ?Gest Age:??41 weeks 2 days ? Outcome:??Live ? Sex:??Male?Wt:?2410 g ? Complications:??Meconium; severe variable and late decelerations ?Anesthesia Type:??Epidural ? Labor:??No ?Javier Labor:??12 hr ?Name of Father/Guardian of :?Hospital:??[facility] ?? # 2?Marked as Sensitive ?Baby 1 ?Outcome Date:??2014 ?Outcome or Result:??Therapeutic , surgical ?Gest Age:??-- ? Outcome:? Sex:??-- ?? # 3 ?Baby 1 ?Outcome Date:??04/17/2017?Outcome or Result:?Gest Age:??39 weeks 3 days ? Outcome:??Live ? Sex:??Male?Wt:?3724 g ?? # 4?Marked as Sensitive ?Baby 1 ?Outcome Date:??2020 ?Outcome or Result:??Therapeutic , surgical ?Gest Age:??Unknown ? Outcome:? Sex:??-- Active Problem List Active Problem List : (Freetext) Anemia during : (Medical) Anxiety: (Medical) Declines (vaginal after ) trial: (Medical) Depression: (Medical) GBS bacteriuria: (Medical) History of : (Medical) HSV infection: (Medical) Obese class I: (Medical) : (Obstetric) (05/05/22) : (Medical) Request for sterilization: (Medical) Superficial thrombophlebitis in : (Medical) Home Medications Acetaminophen: 1,300 mg = 2 tablet, By Mouth, Every 8 hours, PRN (as needed for pain) Docusate: 100 mg = 1 capsule, By Mouth, 2 times a day, PRN (as needed for constipation) Doxylamine: 25 mg = 1 tablet, By Mouth, Daily at bedtime, PRN (for sleep) Ibuprofen: 800 mg = 1 tablet, By Mouth, Every 6 hours Oxycodone: 5 mg = 1 capsule, By Mouth, Every 6 hours, PRN (for pain) Sertraline: 50 mg = 1 tablet, By Mouth, Daily Simethicone: 80 mg = 1 tablet, By Mouth, 3 times a day after meals and bedtime Medications Medications (16) Active SCHEDULED: (5) Acetaminophen 325 mg Tablet (Acetaminophen Tablet) ??650 mg, By Mouth, Every 4 hours Docusate Sodium 100 mg Capsule (Docusate Sodium Capsule) ??100 mg 1 capsule, By Mouth, 2 times a day Enoxaparin 40 mg Inj (Enoxaparin Inj) ??40 mg 0.4 mL, Subcutaneous Injection, Every 24 hours Famotidine 20 mg Tablet (Famotidine Tablet) ??20 mg, By Mouth, 2 times a day Ibuprofen 800 mg Tablet (Ibuprofen Tablet) ??800 mg, By Mouth, Every 8 hours CONTINUOUS: (1) Lactated Ringers (1000 mL) Cont IV 1,000 mL (Lactated Ringers 1,000 mL) ??1,000 mL, IV Infusion, 125 mL/hr PRN: (10) diphenhydrAMINE 25 mg Tablet (DiphenhydrAMINE Tablet) ??25 mg, By Mouth, Every 4 hours diphenhydrAMINE 50 mg/mL Inj (DiphenhydrAMINE Inj) ??25 mg 0.5 mL, IV Push, Once diphenhydrAMINE 50 mg/mL Inj (DiphenhydrAMINE Inj) ??12.5 mg 0.25 mL, IV Push, Every 2 hours FENTanyl 50 mcg/mL Inj (2 mL) (FENTanyl Inj) ??25 mcg 0.5 mL, IV Push, Every 5 minutes Metoclopramide 5 mg/mL Inj (2 mL) (Metoclopramide Inj) ??10 mg, IV Push, Every 6 hours nalOXONE ??400mcg/mL Inj (nalOXONE Inj) ??0.1 mg 0.25 mL, IV Push Slowly, Every 15 minutes Ondansetron 2mg/mL Inj (2mL Vial) (Ondansetron Inj) ??4 mg, IV Push, Once Ondansetron 4 mg ODT (Ondansetron Tablet) ??4 mg, By Mouth, Every 4 hours PROCHLORperazine 5mg/ml Inj (PROCHLORperazine Inj) ??5 mg 1 mL, IV Push, Every 6 hours Simethicone 80 mg Chewable Tablet (Simethicone Tablet) ??80 mg, Chew, 3 times a day * Hanh Chatterjee A: PERFORM Event Display: Care Team Progress Note Authored Date: secured a??medela (personal pump) for home through insurance. Patient Care team information Care Team Personnel Name: Benson SCHNEIDER, Zenaida Covarrubias Position: [facility] BLOCKMASON MD Member Role: PCP Address: Address: [place] [id number]- Name: Albina Butler RN Position: [facility] OB RN Member Role: Patient Care Provider Name: Aaliyah Sierra RN Position: [facility] OB RN Member Role: OB RN Care Team Related Persons Name: CAYDEN STERLING Address: [address] Address: home [address] Name: CARMEN PARDO Address: [address] [place] [address] Name: MAK DARDEN Address: home [address] [place] [id number]
--- OUTSIDE RECORDS SUMMARY | 2023-06-13 23:44 | XMS_ITS | Continuity of Care Document ---
Author Name Unknown Organization [facility] Address [address] [place] [address]- Care Team Providers Care [employer] Supervisor Name Role Phone Zenaida Knowles MD Primary Care Physician [phone] Encounter [facility] Date(s): 01/17/21 - 01/24/21 [facility] [address] [place] [address]- Encounter Diagnosis Sore throat(Discharge Diagnosis) - 01/17/21 Attending Physician: Naresh Lees DO Referring Physician: Zenaida Knowles MD Allergies, Adverse [...] constipation, 02/22/17 12:44:13, Route to Pharmacy Electronically, [id number], [facility]/pharmacy #[id number] Start Date: 02/22/17 Status: [...] Status: Ordered ParaGard intrauteral device See Instructions, city supervisor [place] and bring to your post- appointment for insertion, # 1 each, 0 Refills, Maintenance, 04/22/17 14:04:19, city supervisor [place] and bring to your post- [...] pain in female(Confirmed) Active Levator spasm(Confirmed) Active Diagnosis Diagnosis Type Effective Dates Health Status Clini kvng Service Informant Sore throat Discharge Diagnosis 01/17/21 Social History Social History Type Response Smoking Status Never (less than 100 in lifetime) entered on: 04/11/20 Sex Female
[2023-06-13] MEDS: 0.9 % Sodium Chloride 1,000 ML 999 ML IV (23:48)
[2023-06-14] MEDS: iohexoL 350 MG/ML 100 ML INFUS..BTL 60 ML IV (00:21)
--- NOTE | 2023-06-14 00:35 | MHC.EDTECH ---
Patient urine sample collected and sent to lab .
[2023-06-14 00:36] LABS: MANUAL DIFF FLAG NO
[2023-06-14 00:43] LABS: Basophils Percent Auto 0.4 % (0-2); Eosinophils Absolute Auto 0.2 X10*3/uL (0.0-0.4); Eosinophils Percent Auto 2.7 % (0-4); Hematocrit 31.7 % (37.0-47.0); Hemoglobin 9.7 g/dl (12.0-16.0); Imm Gran Abs Auto 0.01 X10*3/uL (0.00-0.03); Imm Gran Pct Auto 0.2 % (0.0-0.4); Mean Corpuscular HGB Conc 30.6 g/dl (31.0-35.0); Mean Corpuscular Hemoglobin 23.7 pg (27.0-33.0); Mean Corpuscular Volume 77.3 fL (80.0-98.0); Mean Platelet Volume 10.1 fL (9.4-12.3); Monocytes Absolute Auto 0.4 X10*3/uL (0.1-1.2); Monocytes Percent Auto 6.3 % (2-11); Neutrophils Absolute Auto 3.1 x10*3/uL (2.0-8.3); Neutrophils Percent Auto 54.4 % (45-73); Platelet Count 256 X10*3/uL (160-400); Red Cell Distribution Width 15.5 % (11.0-16.0); White Blood Count 5.6 X10*3/uL (4.8-10.8)
[2023-06-14 02:15] VITALS: BP 105/65; PULSE 59; RESP 16; TEMP 36.6; O2SAT 97
== END 2023-06-14 03:02 | disposition home or self-care (01) ==
PROVIDERS: Emergency Provider Emergency Medicine
DX: M79.601 Pain in right arm (principal); R06.02 Shortness of breath; Z86.718 Personal history of other venous thrombosis and embolism
CPT/HCPCS: 36415; 70491; 80048; 85025; 93005; 93971; 96360; 96361; 99284; Q9967

== ENCOUNTER → 2023-06-13 23:04 | Outpatient (BNV) | payer MEDICAID, SELFPAY | PROVIDERS: Emergency Provider Emergency Medicine; Visit Provider Internal Medicine Cardiovascular Disease | DX: R94.31 Abnormal electrocardiogram [ECG] [EKG] (principal); R06.02 Shortness of breath | CPT/HCPCS: 93010 ==